=== PATIENT | female | born 1950 | race Caucasian/White ===

== ENCOUNTER → 2024-07-10 14:09 | Outpatient (REF) | payer MEDICARE, SELFPAY | LOC: RAD 14:09 | PROVIDERS: ATTENDING PHYSICIAN Internal Medicine Rheumatology; FAMILY PHYSICIAN Internal Medicine; REFERRING PHYSICIAN Physical Medicine & Rehabilitation | DX: M81.0 Age-related osteoporosis without current pathological fracture (principal); M05.9 Rheumatoid arthritis with rheumatoid factor, unspecified; M06.9 Rheumatoid arthritis, unspecified; M16.10 Unilateral primary osteoarthritis, unspecified hip; M47.816 Spondylosis without myelopathy or radiculopathy, lumbar region | CPT/HCPCS: 73523; 77080 ==

== ENCOUNTER 2024-10-29 06:17 | Inpatient (IN) | payer MEDICARE, SELFPAY ==
[2024-10-01 11:02] VITALS: BMI 20.4
[2024-10-01 12:02] LABS: Hematocrit 41.3 % (37.0-47.0); Hemoglobin 12.8 g/dL (12.0-16.0); Mean Corpuscular Hgb 32.1 pg (27.0-31.0); Mean Corpuscular Volume 103.5 fL (81.0-99.0); Mean Platelet Volume 9.4 fL (7.4-10.4); Platelet Count 345 10^3/uL (130-400); Red Blood Cell Count 3.99 10^6/uL (4.20-5.40); Red Cell Dist. Width 14.6 % (11.5-14.5); White Blood Cell Count 10.5 10^3/uL (4.8-10.8)
[2024-10-01 12:24] LABS: ALT (SGPT) 12 U/L (0-35); AST (SGOT) 19 U/L (14-36); Albumin 4.7 g/dl (3.5-5.0); Alkaline Phosphatase 38 U/L (38-126); Blood Urea Nitrogen 31 mg/dl (7-17); Calcium 10.3 mg/dl (8.4-10.2); Carbon Dioxide 25 mmol/L (22-30); Chloride 103 mmol/L (98-107); Estimated Creatinine Clearance 47 ml/min; Glucose 102 mg/dl (70-99); Potassium 4.6 mmol/L (3.5-5.1); Sodium 140 mmol/L (135-145); Total Bilirubin 0.5 mg/dl (0.2-1.3); eGFR 58.39
[2024-10-01 12:28] LABS: Glycohemoglobin (HgbA1c) 6.3 % (4.0-5.6)
[2024-10-23 09:46] VITALS: BMI 20.4
--- NOTE | 2024-10-25 13:05 | CM ---
Addendum entered by Ginette Lindo RN 10/25/24 13:29:
CM spoke with patient via live telephone. Patient confirmed that she had discussed her discharge plan previously. Patient has decided on home discharge with VN for two weeks. Plan to transition to outpatient PT at that point. Patient stated that she
is immunocompromised and would prefer NOT to go to SNF.
CM stated that inpatient CM will work with providers, PT and nursing to confirm discharge plan.
Original Note:
CM left message for patient to discuss discharge planning options.
[2024-10-29] VITALS (14 sets, daily range): BP systolic 96–147; BP diastolic 62–89; PULSE 90–94; O2SAT 98
[2024-10-29] MEDS: MOBIC 15 MG PO (07:42)
[2024-10-29] MEDS: NORMOSOL-R/PLASMALYTE-A 1000 IV ×2 (07:43→12:15)
--- NOTE | 2024-10-29 07:57 | W.PN.UPDATE ---
Update Note
Progress Note Update
L SHARAN Dr. Singh 10/29/24
DVT ppx ASA
CKD 3 based on GFR-avoid nephrotoxic agents
Sub IV Decadron and Lyrica for home Prednisone and Gabapentin while inpatient
Cefadroxil Rx OP due to need for steroid-RA and mildly elevated hgb [id number] SSI Novolog coverage
--- NOTE | 2024-10-29 08:10 | W.DS.TRANS ---
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
-
Discharge Instructions:
Sleep Apnea Risk Low
Discharge Diagnosis/Procedures L SHARAN Singh 10/29/24
Diet Diabetic, Carb Controlled
Activity With Walker
Driving Restrictions No driving
Bathing Restrictions OK to Shower
Other Services VN,PT,OT
Instructions:
Stand-Alone Forms: Total Hip/Knee Replacement D/C
Changes to Home Medications: Yes
Discharge Medications:
DC Medications w/original date entered in [employer]
acetaminophen 325 mg tablet (Tylenol) 650 mg PO BID 10/23/24
amlodipine 5 mg tablet 5 mg PO HS 10/23/24
gabapentin 100 mg capsule 100 mg PO HS 10/23/24
levothyroxine 125 mcg tablet 125 mcg PO DAILY 10/23/24
lisinopril 20 mg-hydrochlorothiazide 25 mg tablet 1 tab PO HS 10/23/24
metoprolol succinate 50 mg tablet,extended release 24 hr 50 mg PO HS 10/23/24
omeprazole 20 mg capsule,delayed release 20 mg PO DAILY 10/23/24
prednisone 5 mg tablet 5 mg PO DAILY 10/23/24
rituximab 10 mg/mL concentrate,intravenous (Rituxan) mg IV [id number] 10/23/24
rosuvastatin 20 mg tablet (Crestor) 20 mg PO DAILY 10/23/24
tramadol 50 mg tablet 50 mg PO HS 10/23/24
Saccharomyces boulardii 250 mg capsule (Florastor) 250 mg PO BID #1 cap 10/29/24
aspirin 325 mg tablet 325 mg PO DAILY blood clot prevention #1 tab 10/29/24
cefadroxil 500 mg capsule 500 mg PO BID infection prevention #14 caps 10/29/24
dexamethasone 4 mg tablet 4 mg PO BID inflammation #6 tabs 10/29/24
docusate sodium 100 mg capsule (Colace) 100 mg PO BID stool softner #1 cap 10/29/24
magnesium hydroxide 400 mg/5 mL oral suspension (Milk of Magnesia) 30 ml PO HS PRN Constipation #1 mL 10/29/24
mupirocin 2 % topical ointment 2 applic topical BID 10/29/24
ondansetron 4 mg disintegrating tablet 4 mg PO Q6H PRN n/v #20 tabs 10/29/24
oxycodone 5 mg tablet 5 mg PO Q6H PRN 1 tab moderate pain, 2 tabs severe pain #30 tabs 10/29/24
sennosides 8.6 mg tablet (Senokot) 17.2 mg (2 x 8.6 mg) PO BID laxative #2 tabs 10/29/24
Home Medication Changes
prednisone 5 mg tablet 5 mg PO DAILY 10/23/24
rituximab 10 mg/mL concentrate,intravenous (Rituxan) mg IV [id number] 10/23/24
rosuvastatin 20 mg tablet (Crestor) 20 mg PO DAILY 10/23/24
tramadol 50 mg tablet 50 mg PO HS 10/23/24
Saccharomyces boulardii 250 mg capsule (Florastor) 250 mg PO BID #1 cap 10/29/24
aspirin 325 mg tablet 325 mg PO DAILY blood clot prevention #1 tab 10/29/24
cefadroxil 500 mg capsule 500 mg PO BID infection prevention #14 caps 10/29/24
dexamethasone 4 mg tablet 4 mg PO BID inflammation #6 tabs 10/29/24
docusate sodium 100 mg capsule (Colace) 100 mg PO BID stool softner #1 cap 10/29/24
magnesium hydroxide 400 mg/5 mL oral suspension (Milk of Magnesia) 30 ml PO HS PRN Constipation #1 mL 10/29/24
mupirocin 2 % topical ointment 2 applic topical BID 10/29/24
ondansetron 4 mg disintegrating tablet 4 mg PO Q6H PRN n/v #20 tabs 10/29/24
oxycodone 5 mg tablet 5 mg PO Q6H PRN 1 tab moderate pain, 2 tabs severe pain #30 tabs 10/29/24
sennosides 8.6 mg tablet (Senokot) 17.2 mg (2 x 8.6 mg) PO BID laxative #2 tabs 10/29/24
Pending Results: No
[2024-10-29] MEDS: ROXICODONE 5 MG PO ×2 (10:44→20:01)
[2024-10-29] MEDS: DILAUDID 0.25 MG IV ×2 (10:45→10:56)
[2024-10-29] MEDS: DILAUDID 0.5 MG IV ×2 (11:09→21:58)
[2024-10-29] MEDS: CRESTOR PO (12:12)
[2024-10-29] MEDS: LYRICA PO (12:12)
[2024-10-29] MEDS: SYNTHROID PO (12:12)
[2024-10-29] MEDS: TYLENOL PO (12:13)
[2024-10-29] MEDS: ULTRAM PO ×2 (12:13→22:29)
[2024-10-29] MEDS: PROTONIX PO (12:13)
[2024-10-29 12:20] LABS: Glucose - Point of Care 136 mg/dl (70-99)
[2024-10-29] MEDS: NOVOLOG FLEXPEN-MODERATE RESISTANCE SC (12:22)
[2024-10-29] MEDS: DECADRON 6 MG IV ×2 (13:03→20:02)
[2024-10-29] MEDS: ULTRAM 50 MG PO ×2 (13:04→17:42)
[2024-10-29] MEDS: ZOFRAN 4 MG IV (14:11)
[2024-10-29] MEDS: TYLENOL 650 MG PO ×2 (16:00→20:03)
[2024-10-29] MEDS: ANCEF 5 IV (16:39)
[2024-10-29] MEDS: COMPAZINE 5 MG PO (17:11)
[2024-10-29 17:28] LABS: Glucose - Point of Care 182 mg/dl (70-99)
[2024-10-29] MEDS: NOVOLOG FLEXPEN-MODERATE RESISTANCE 1 UNITS SC (17:41)
[2024-10-29] MEDS: ASPIRIN 325 MG PO (17:42)
[2024-10-29] MEDS: MAALOX 30 ML PO (19:44)
[2024-10-29] MEDS: COLACE 100 MG PO (20:02)
[2024-10-29] MEDS: BACTROBAN 2% OINTMENT 1 APPLIC NASAL (20:03)
[2024-10-29] MEDS: SENOKOT 17.2 MG PO (20:03)
[2024-10-29] MEDS: LYRICA 75 MG PO (20:03)
[2024-10-29 21:16] LABS: Glucose - Point of Care 203 mg/dl (70-99)
[2024-10-30] VITALS (7 sets, daily range): BP systolic 112–118; BP diastolic 63–80; PULSE 80
[2024-10-30] MEDS: ROXICODONE 10 MG PO ×2 (00:58→05:10)
[2024-10-30] MEDS: ANCEF 5 IV (00:59)
[2024-10-30] MEDS: TYLENOL 650 MG PO ×6 (00:59→23:10)
[2024-10-30] MEDS: MAALOX 30 ML PO ×2 (01:05→05:15)
[2024-10-30] MEDS: SYNTHROID 125 MCG PO (05:10)
[2024-10-30] MEDS: BACTROBAN 2% OINTMENT 1 APPLIC NASAL ×2 (08:23→20:14)
[2024-10-30 08:28] LABS: Hepatitis C Antibody Negative (Negative)
[2024-10-30] MEDS: DECADRON 6 MG IV ×2 (08:33→20:24)
[2024-10-30] MEDS: FLUSH (NSS) 1 FLUSH IV (08:34)
[2024-10-30 08:35] LABS: Glucose - Point of Care 156 mg/dl (70-99)
[2024-10-30] MEDS: ZOFRAN 4 MG IV (08:44)
[2024-10-30] MEDS: NOVOLOG FLEXPEN-MODERATE RESISTANCE SC (08:47)
--- NOTE | 2024-10-30 08:48 | PTCARENOTE ---
assumed care of pt this am at 0715. pt w/multiple complaints. pt unable to eat breakfast, vomited moderate amount of bilious liquid and applesauce.
IV Decadron and IV Zofran provided per MAR. will give oral medications when pt can tolerate. pt verbalized concerns about being discharged home alone today. care ongoing.
[2024-10-30] MEDS: PROTONIX 40 MG PO (10:25)
--- NOTE | 2024-10-30 10:48 | CM ---
CM following re: discharge planning.
Reviewed pt's chart, met with pt.
Pt is a 74 year old female, admitted with primary dx of POD#1 s/p Left total hip arthroplasty.
Pt reports she lives alone 2SH, 3 steps to enter, has 2 supportive children and grandson with his family are caregivers. Pt reports she ambulates with a cane mostly, has a walker, does not use it. Pt stated she feels she is not ready for discharge
today. IMM reviewed, placed on chart, pt has a copy. Pt stated her grandson will transport home at discharge.
CM consult to arrange VN services noted. Pt is aware and she stated she had [facility] in the past and she preferred [facility]. A referral to [facility] made.
Please fax discharge instructions to [facility] at [phone].
PCP: Joel Rowell
Pharmacy: [facility].
D/C plan: home with [facility] and family support. Grandson to transport at discharge.
CM will follow with discharge plan updates as hospitalization progresses
--- NOTE | 2024-10-30 10:56 | W.PN.ORTHO ---
Today's Communication / Plan
-
d/c
Assessment
.
Distal Motor Intact: Yes
Dressing:
Clean, dry and intact.
Assessment:
CKD 3 based on GFR-avoid nephrotoxic agents
Sub IV Decadron and Lyrica for home Prednisone and Gabapentin while inpatient-pain controlled
Cefadroxil Rx OP due to need for steroid-RA and mildly elevated hgb [id number] SSI Novolog coverage-sugars stable POD#1
Plan
.
Surgery / Date: L SHARAN Singh 10/29/24
DVT Prophylaxis: Aspirin
Activity:
Out of bed.
PT/OT--supervision/mod I RW with PT/OT-grandson and live across street and patient has been arranged home care
Discharge Plan: Home w/ VN
Subjective
.
.:
Patient resting comfortably.
Mild nausea-improved
Vital Signs and Labs
.
Vital Signs and Labs:
Lab Results
10/01/24 10:59
10/01/24 10:59
Temp Pulse Resp BP Pulse Ox
98.7 F 90 18 115/76 98
10/30/24 10:47 10/30/24 10:47 10/30/24 10:47 10/30/24 10:47 10/30/24 10:47
Non-invasive Hgb result: 13.1
Physical Exam
-
HEENT: No pallor, cyanosis, or jaundice. Throat clear.
NECK: Supple. No JVD.
RESPIRATORY: Lungs clear to auscultation.
CVS: S1, S2 normal. RRR.� No murmur, rub or gallop.
ABDOMEN: Soft, non-tender. No distension. BS+/normal.
EXTREMITIES: strength equal, no calf pain with palpation
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
[2024-10-30] MEDS: COMPAZINE 5 MG IV (11:30)
[2024-10-30] MEDS: TYLENOL PO (11:32)
[2024-10-30] MEDS: SENOKOT 17.2 MG PO ×2 (11:33→20:14)
--- NOTE | 2024-10-30 11:33 | VNURNOTE ---
Home health liaison met with patient to discuss [facility] services, visit scheduling/frequency, homebound status and pet policy. Patient understands home visits will be 1-2 times a week to assess and teach medical management. Patient aware a visiting
nurse will contact them for start of care within 1-2 days after discharge from . [facility] Referral completed in care port. [facility] brochure given to patient
[2024-10-30] MEDS: CRESTOR 20 MG PO (11:34)
[2024-10-30] MEDS: LYRICA 75 MG PO ×2 (11:34→20:14)
[2024-10-30] MEDS: ULTRAM 50 MG PO ×3 (11:34→23:10)
[2024-10-30] MEDS: COLACE 100 MG PO ×2 (11:34→20:14)
[2024-10-30] MEDS: ASPIRIN 325 MG PO (11:34)
[2024-10-30 12:04] LABS: Glucose - Point of Care 199 mg/dl (70-99)
[2024-10-30] MEDS: ProAmatine 5 MG PO (12:21)
[2024-10-30] MEDS: FLOMAX 0.4 MG PO (12:21)
[2024-10-30] MEDS: NOVOLOG FLEXPEN-MODERATE RESISTANCE 1 UNITS SC (12:23)
[2024-10-30] MEDS: ULTRAM PO (13:00)
[2024-10-30 17:32] LABS: Glucose - Point of Care 217 mg/dl (70-99)
[2024-10-30] MEDS: NOVOLOG FLEXPEN-MODERATE RESISTANCE 3 UNITS SC (17:32)
[2024-10-30 21:45] LABS: Glucose - Point of Care 148 mg/dl (70-99)
[2024-10-31] MEDS: TESSALON PERLES 100 MG PO ×2 (01:33→12:08)
[2024-10-31 03:53] VITALS: BP 100/65
[2024-10-31] MEDS: TYLENOL PO ×2 (06:07→14:19)
[2024-10-31] MEDS: SYNTHROID 125 MCG PO (06:22)
[2024-10-31 07:25] VITALS: BP 121/83
[2024-10-31 08:50] LABS: Glucose - Point of Care 143 mg/dl (70-99)
[2024-10-31] MEDS: NOVOLOG FLEXPEN-MODERATE RESISTANCE SC (09:02)
[2024-10-31 10:33] VITALS: BP 103/71; PULSE 114; O2SAT 91
[2024-10-31 10:38] VITALS: BP 91/62; BP 92/69; PULSE 124; O2SAT 91
--- NOTE | 2024-10-31 10:53 | W.PN.UPDATE ---
Update Note
Progress Note Update
Patient doing/feeling well this AM. Seated bedside in chair. Voiding well. Working with OT upon arrival, awaiting PT. Now POD#2 Left SHARAN (Samantha). Afeb. Left hip dressing CDI. Minimal pain with ranging. Calf soft, nontender. DNVI LLE. Plan for D/c
home today with VNS- appreciate CM. Outpatient Ortho follow-up in 2 weeks for staple removal.
--- NOTE | 2024-10-31 10:54 | W.DS.TRANS ---
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
-
Discharge Instructions:
Sleep Apnea Risk Low
Discharge Diagnosis/Procedures L SHARAN Dr. Singh 10/29/24
Diet Diabetic, Carb Controlled
Activity With Walker
Driving Restrictions No driving
Bathing Restrictions OK to Shower
Other Services VN,PT,OT
Instructions:
Stand-Alone Forms: Total Hip/Knee Replacement D/C
Changes to Home Medications: No
Discharge Medications:
DC Medications w/original date entered in [employer]
acetaminophen 325 mg tablet (Tylenol) 650 mg PO BID 10/23/24
amlodipine 5 mg tablet 5 mg PO HS 10/23/24
gabapentin 100 mg capsule 100 mg PO HS 10/23/24
levothyroxine 125 mcg tablet 125 mcg PO DAILY 10/23/24
lisinopril 20 mg-hydrochlorothiazide 25 mg tablet 1 tab PO HS 10/23/24
metoprolol succinate 50 mg tablet,extended release 24 hr 50 mg PO HS 10/23/24
omeprazole 20 mg capsule,delayed release 20 mg PO DAILY 10/23/24
prednisone 5 mg tablet 5 mg PO DAILY 10/23/24
rituximab 10 mg/mL concentrate,intravenous (Rituxan) mg IV [id number] 10/23/24
rosuvastatin 20 mg tablet (Crestor) 20 mg PO DAILY 10/23/24
tramadol 50 mg tablet 50 mg PO HS 10/23/24
Saccharomyces boulardii 250 mg capsule (Florastor) 250 mg PO BID #1 cap 10/29/24
aspirin 325 mg tablet 325 mg PO DAILY blood clot prevention #1 tab 10/29/24
cefadroxil 500 mg capsule 500 mg PO BID infection prevention #14 caps 10/29/24
dexamethasone 4 mg tablet 4 mg PO BID inflammation #6 tabs 10/29/24
docusate sodium 100 mg capsule (Colace) 100 mg PO BID stool softner #1 cap 10/29/24
magnesium hydroxide 400 mg/5 mL oral suspension (Milk of Magnesia) 30 ml PO HS PRN Constipation #1 mL 10/29/24
mupirocin 2 % topical ointment 2 applic topical BID 10/29/24
ondansetron 4 mg disintegrating tablet 4 mg PO Q6H PRN n/v #20 tabs 10/29/24
oxycodone 5 mg tablet 5 mg PO Q6H PRN 1 tab moderate pain, 2 tabs severe pain #30 tabs 10/29/24
sennosides 8.6 mg tablet (Senokot) 17.2 mg (2 x 8.6 mg) PO BID laxative #2 tabs 10/29/24
Home Medication Changes
Pending Results: No
--- NOTE | 2024-10-31 11:43 | CM ---
SPoke to Ortho team. Plan home today with DEANDRA. PT and OT assessed today. Met with patient who plans to go home today. She has ride set up for home.
[2024-10-31] MEDS: ULTRAM 50 MG PO (11:58)
[2024-10-31] MEDS: FLOMAX 0.4 MG PO (11:58)
[2024-10-31] MEDS: COLACE 100 MG PO (11:58)
[2024-10-31] MEDS: TYLENOL 650 MG PO (12:02)
[2024-10-31] MEDS: ASPIRIN 325 MG PO (12:03)
[2024-10-31] MEDS: CRESTOR 20 MG PO (12:03)
[2024-10-31] MEDS: LYRICA 75 MG PO (12:03)
[2024-10-31] MEDS: SENOKOT 17.2 MG PO (12:04)
[2024-10-31] MEDS: PROTONIX 40 MG PO (12:04)
[2024-10-31 14:05] LABS: Glucose - Point of Care 154 mg/dl (70-99)
[2024-10-31 14:06] VITALS: BP 106/72
[2024-10-31] MEDS: ULTRAM PO (14:20)
[2024-10-31] MEDS: NOVOLOG FLEXPEN-MODERATE RESISTANCE 1 UNITS SC (14:21)
== END 2024-10-31 14:55 | disposition home health service (06) | DRG 470 ==
LOC: 2 SOUTH 06:17
PROVIDERS: ADMITTING PHYSICIAN Specialist; FAMILY PHYSICIAN Internal Medicine
PROC: 0SRB03A Replacement of Left Hip Joint with Ceramic Synthetic Substitute, Uncemented, Open Approach (ICD-10-PCS; 2024-10-29)
DX: M16.12 Unilateral primary osteoarthritis, left hip (principal); I12.9 Hypertensive chronic kidney disease with stage 1 through stage 4 chronic kidney disease, or unspecified chronic kidney disease; N18.30 Chronic kidney disease, stage 3 unspecified; E03.9 Hypothyroidism, unspecified; K21.9 Gastro-esophageal reflux disease without esophagitis; M06.9 Rheumatoid arthritis, unspecified; M51.369 Other intervertebral disc degeneration, lumbar region without mention of lumbar back pain or lower extremity pain; G25.81 Restless legs syndrome; F32.A Depression, unspecified; E78.5 Hyperlipidemia, unspecified; Z79.52 Long term (current) use of systemic steroids; Z79.890 Hormone replacement therapy; Z79.899 Other long term (current) drug therapy; Z88.2 Allergy status to sulfonamides; Z87.891 Personal history of nicotine dependence
CPT/HCPCS: 36415; 73502; 80053; 82962; 83036; 85027; 86803; 87070; 93005; 97110; 97116; 97162; 97166; 97530; 97535; C1713; C1776

== ENCOUNTER 2024-11-01 20:39 | Inpatient (IN) | payer MEDICARE, SELFPAY ==
[2024-11-01 17:25] VITALS: BP 108/65; BMI 21.3
[2024-11-01 18:02] LABS: Hematocrit 33.9 % (37.0-47.0); Hemoglobin 11.5 g/dL (12.0-16.0); Mean Corp Hgb Conc. 33.9 g/dL (33.0-37.0); Mean Corpuscular Hgb 32.6 pg (27.0-31.0); Mean Platelet Volume 9.5 fL (7.4-10.4); Platelet Count 263 10^3/uL (130-400); Red Blood Cell Count 3.53 10^6/uL (4.20-5.40); White Blood Cell Count 11.1 10^3/uL (4.8-10.8)
[2024-11-01 18:08] LABS: Blood Urea Nitrogen 37 mg/dl (7-17); Calcium 8.7 mg/dl (8.4-10.2); Carbon Dioxide 24 mmol/L (22-30); Chloride 92 mmol/L (98-107); Estimated Creatinine Clearance 49 ml/min; Glucose 93 mg/dl (70-99); Sodium 125 mmol/L (135-145); eGFR 58.39
--- NOTE | 2024-11-01 18:10 | ED.GENMED ---
History of Present Illness
General
Chief Complaint: Weakness
Source: patient, records and previous hospital records
Exam Limitations: none
Time Seen by Provider: 11/01/24 17:30
Nursing documentation reviewed up to this point in time: agreed with
History of Present Illness
History of Present Illness:
74-year-old female with recovery from a left total hip replacement from Dr. Singh presents with fatigue and shortness of breath low pulse ox, she has been on aspirin postoperatively, tells me she felt short of breath before she left the hospital,
but acutely worsened, blood pressure was in the 80 pulse ox was in the low 80s 80s apparently placed on a nonrebreather, she has crackles bilaterally, states she does feel crackles in her lungs no history of heart failure she tells me she said no
fevers, no leg edema that she knows of, pulse ox here is in the 60s
Past History
Past History
ED Past Medical History: HTN and Other (RA, no history of PE)
ED Past Surgical History: Orthopedic
Social History
Tobacco: Non-smoker
Alcohol: None
Drug: None
Personal:
Living: with family
Employment: Retired
Review of Systems
Review of Systems
All Other Systems: Not applicable
Constitutional: Reports fatigue; Denies fever
Respiratory: Reports cough and trouble breathing
Cardiac: Reports no symptoms
ABD/GI: Reports no symptoms
: Reports no symptoms
Skin: Reports no symptoms
Neurological: Reports weakness
Endocrine: Reports no symptoms
Phy Exam
Physical Exam
Physical Exam:
Physical Exam
General: Ill-appearing
Neck: No jaundice
Heart: s1/s2 regular rate and rhythm, no murmur. equal radial pulses.
Lungs: Crackles bilaterally cardiac
Abdomen: Nontender
Neuro: alert and oriented. no focal neurological deficits
Skin: no rash
Psychiatric: well kept. interactive and cooperative
Extremities: No calf pain
Course
Orders/Labs/Results
Orders:
Orders
11/01/24 17:33
Basic Metabolic Panel Urgent
COVID-19 Antigen Urgent
Source: Nasal Swab
Complete Blood Count/With Diff Urgent
Influenza A+B Rapid Molecular Urgent
VERNA Source: Nasal Swab
Specimen Description:
11/01/24 17:35
CT Chest Pe Study Stat
Comment:
Reason For Exam: no labs, thanks
11/01/24 17:49
Electrocardiogram (*1) Urgent
Reason for Study: Shortness of Breath
EKG- Treatment ONCE
11/01/24 18:28
NT-proBNP Urgent
Troponin I Urgent
11/01/24 18:52
Piperacillin/Tazo 3.375 Gram [Zosyn] 3.375 gram in 50 ml IV NOW
11/01/24 18:53
Add On- LAB Urgent
Tests Added?: random cortisol
11/01/24 18:54
Hydrocortisone Sod Succinate [Solu-Cortef] 100 mg IV NOW STA
11/01/24 19:08
Cortisol, Random Urgent
Blood Culture Q30M
VERNA Source: Blood/Venous
Specimen Description:
Blood Culture Q30M
VERNA Source: Blood/Venous
Specimen Description:
11/01/24 19:19
0.9% Sodium Chloride 1000 ml [Nss] 1,000 ml IV BOLUS
Ipratropium/Albuterol Sulfate [Duoneb] 3 ml INH R NOW STA
Abnormal Lab Results
11/01/24
17:33
WBC 11.1 H 10^3/uL
(4.8-10.8)
RBC 3.53 L 10^6/uL
(4.20-5.40)
Hgb 11.5 L g/dL
(12.0-16.0)
Hct 33.9 L %
(37.0-47.0)
MCH 32.6 H pg
(27.0-31.0)
Abs Immat Gran (auto) 0.1 H 10^3/uL
(0-0.05)
Absolute Neuts (auto) 9.6 H 10^3/uL
(1.4-6.5)
Absolute Lymphs (auto) 0.7 L 10^3/uL
(1.2-3.4)
Immature Gran % 1.1 H %
(0-0.5)
Neutrophils % 86.7 H %
(42.2-75.2)
Lymphocytes % 5.9 L %
(20.5-51.1)
Sodium 125 L mmol/L
(135-145)
Chloride 92 L mmol/L
(98-107)
BUN 37 H mg/dl
(7-17)
11/01/24 17:33
11/01/24 17:33
Vital Signs
Initial and Last Documented VS:
Initial Vital Signs
Temp Pulse Resp BP Pulse Ox
98.2 F 97 18 108/65 67
11/01/24 17:25 11/01/24 17:25 11/01/24 17:25 11/01/24 17:25 11/01/24 17:25
Last Documented Vital Signs
Temp Pulse Resp BP Pulse Ox
98.2 F 91 25 99/65 96
11/01/24 17:25 11/01/24 19:15 11/01/24 19:15 11/01/24 19:00 11/01/24 19:15
MDM/Problems Addressed
Differential Diagnosis Includes:
PE aspiration pneumonia heart failure pneumothorax pulmonary fibrosis other
MDM/Problems Addressed:
Shortness of breath low pulse ox low blood pressure
Chronic conditions affecting care:
Recent orthopedic procedure
Acute Exacerbation and/or Progression of Chronic Illness:
Recent orthopedic procedure
*EKG
Interpreted by ED Provider?: Yes
Comparison EKG: no comparison EKG present
Heart Rate: 78
Rate: normal
Rhythm: sinus
Ischemia: non-specific ST changes
*[employer] Consultant Interpretation
Rate: normal
Interpretation: normal
Heart Rate: 78
Rhythm: sinus
*Critical Care Note
Total Time (30-74mins, 75-104mins- exclusive of procedures): 32
Update Note
Update Note:
Update, CT report noted, will check blood cultures proBNP, started on antibiotics give stress dose steroids, allergies noted on a cephalosporin does not appear to be a true allergy
Blood pressure 99 systolic will give a bolus of saline, proBNP is noted, stress dose steroids have been ordered she is on chronic steroids, clinically she appears to be improved with a still on a nonrebreather message sent to hospitalist and to
orthopedist on-call for her treating orthopedist
ED Attending Note
-
Portions of this chart may have been created with voice recognition software.� Occasional wrong word or��sound alike� substitutions may have occurred due to the inherent limitations of voice recognition software.
Discharge Plan
Departure
Patient Disposition: Admit
Date of Disposition: 11/01/24
Time of Disposition: 18:54
Presentation/result/management discussed w/ accepting MD/DO: Hospitalist
Condition: Fair
Covid-19: Not Applicable
Discharge Problem:
Respiratory failure, Hypoxia
Prescriptions:
No Action
metoprolol succinate 50 mg Tablet Extended Release 24 Hr
50 mg PO HS
amlodipine 5 mg Tablet
5 mg PO HS
tramadol 50 mg Tablet
50 mg PO HS
levothyroxine 125 mcg Tablet
125 mcg PO DAILY
omeprazole 20 mg Capsule,Delayed Release(Dr/Ec)
20 mg PO DAILY
lisinopril-hydrochlorothiazide 20-25 mg Tablet
1 tab PO HS
gabapentin 100 mg Capsule
100 mg PO HS
rosuvastatin [Crestor] 20 mg Tablet
20 mg PO DAILY
aspirin 325 mg tablet
325 mg PO DAILY Qty: 1 0RF
Rx Instructions:
Take with food
cefadroxil 500 mg capsule
500 mg PO BID Qty: 14 0RF
Rx Instructions:
*Take w/ food
*Take w/ probiotic
*POST-OP USE
docusate sodium [Colace] 100 mg capsule
100 mg PO BID Qty: 1 0RF
Saccharomyces boulardii [Florastor] 250 mg capsule
250 mg PO BID Qty: 1 0RF
sennosides [Senokot] 8.6 mg tablet
17.2 mg PO BID Qty: 2 0RF
prednisone 10 mg Tablet
10 mg PO BID
Patient Comments:
11/01/24: to take for 5 days, then back to 5mg QD
acetaminophen [Tylenol 8 Hour] 650 mg Tablet Extended Release
1,300 mg PO Q12H
celecoxib 100 mg Capsule
100 mg PO BID
Patient Comments:
11/01/24: to take for 5 days
ondansetron [ondansetron] 4 mg tablet,disintegrating
4 mg PO Q6HPRN PRN (Reason: n/v)
Rx Instructions:
take 1/2h b/f pain med if recurrent nausea
allow to dissolve in mouth w/o water
oxycodone 5 mg tablet
5 mg PO Q6HPRN PRN (Reason: 1 tab moderate pain, 2 tabs severe pain)
Rx Instructions:
Ongoing therapy
Referrals:
Rajan Rowell MD [Family Provider] -
Interventions
Interventions:
*Risk Screen - Suicide Last Done: 11/01/24 17:30
*General Assessment Last Done: 11/01/24 17:30
*Neglect/Abuse Screening Last Done: 11/01/24 17:30
*ED COVID-19 Vaccine History Last Done: 11/01/24 17:30
ED- Cardiac Assessment Last Done: 11/01/24 17:48
ED- Neurological Assessment Last Done: 11/01/24 17:48
ED- Pulmonary Assessment Last Done: 11/01/24 17:48
Discharge Date and Time
Print Language: PERSIAN
[2024-11-01 18:23] LABS: COVID-19 Antigen Negative (Negative)
[2024-11-01 18:34] LABS: % Basophils 0.5 % (0-2); % Eosinophils 3.1 % (0-6); % Immature Granulocytes 1.1 % (0-0.5); % Lymphocytes 5.9 % (20.5-51.1); % Monocytes 2.7 % (1.7-9.3); % Neutrophils 86.7 % (42.2-75.2); Absolute Basophils 0.1 10^3/uL (0-0.2); Absolute Eosinophils 0.3 10^3/uL (0-0.7); Absolute Immature Granulocytes 0.1 10^3/uL (0-0.05); Absolute Lymphocytes 0.7 10^3/uL (1.2-3.4); Absolute Monocytes 0.3 10^3/uL (0.1-0.6); Absolute Neutrophils 9.6 10^3/uL (1.4-6.5); Nucleated Red Blood Cells % 0 %
[2024-11-01 19:00] VITALS: BP 99/65
[2024-11-01 19:00] LABS: NT-proBNP 2350 pg/ml
[2024-11-01] MEDS: ZOSYN 50 IV (19:11)
[2024-11-01] MEDS: SOLU-CORTEF 100 MG IV (19:11)
[2024-11-01] MEDS: DUONEB 3 ML INH (19:39)
[2024-11-01] MEDS: NSS 1000 IV ×2 (19:44→22:09)
--- NOTE | 2024-11-01 19:57 | HPS.HSE ---
Family Physician
-
Family Physician: Rajan Rowell
Chief Complaint
-
Cough, SOB
History of Present Illness
Patient is a 74y F with PMH significant for hypertension, rheumatoid arthritis and L SHARAN on 10/29 who presents to ED complaining of cough and SOB. Patient underwent L SHARAN on 10/29/24. She notes that she developed mild cough on Tuesday /
Tuesday, but was generally feeling well at the time of discharge on 10/31. Patient states that once she returned home she 'fell off a antonieta'. She notes cough that was productive of copious amounts of non-bloody mucus. She states that she had
post-tussive emesis following coughing spells - though this was not preceded by any sensation of nausea. Patient denies any chest pain or abdominal pain.
She has had poor appetite, but has been moving bowels and voiding.
No shaking chills or subjective fever.
Patient notes that her L hip is feeling 'great!'.
Patient does state that her hospitalization this evening was prompted when she 'slid' off of her couch. She states that she slid to the floor with a cushion and landed on the cushion. She denies any pain / injury related to that fall.
Medical History
Past Medical History
Past Medical History: Reports Other
Additional Past Medical History:
Hypertension
Hypothyroidism
Rheumatoid Arthritis
Restless Leg Syndrome
Past Surgical History: Reports Other
Additional Past Surgical History:
L SHARAN (10/29/24)
Appendectomy
R Elbow Surgery
Social History
Tobacco: Former Smoker (Quit smoking 60 years ago.)
Alcohol: Occasional
Drug: None
Family History
Family History: Not pertinent
Allergies / Home Medications
Allergies reflects when Allergies were last updated in [employer]
Home Medications with original date entered in [employer]
Allergy/Medication List:
Allergies
Allergy/AdvReac Type Severity Reaction Status Date / Time
adhesive Allergy Rash Verified 10/29/24 07:30
amoxicillin [From Augmentin] Allergy Nausea / Verified 10/29/24 07:30
Vomiting
clavulanic acid Allergy Nausea / Verified 10/29/24 07:30
[From Augmentin] Vomiting
methotrexate Allergy Itching Verified 10/29/24 07:30
Sulfa (Sulfonamide Allergy Nausea / Verified 10/29/24 07:30
Antibiotics) Vomiting
Home Medications
amlodipine 5 mg tablet 5 mg PO HS 10/23/24
gabapentin 100 mg capsule 100 mg PO HS 10/23/24
levothyroxine 125 mcg tablet 125 mcg PO DAILY 10/23/24
lisinopril 20 mg-hydrochlorothiazide 25 mg tablet 1 tab PO HS 10/23/24
metoprolol succinate 50 mg tablet,extended release 24 hr 50 mg PO HS 10/23/24
omeprazole 20 mg capsule,delayed release 20 mg PO DAILY 10/23/24
rosuvastatin 20 mg tablet (Crestor) 20 mg PO DAILY 10/23/24
tramadol 50 mg tablet 50 mg PO HS 10/23/24
Saccharomyces boulardii 250 mg capsule (Florastor) 250 mg PO BID #1 cap 10/29/24
aspirin 325 mg tablet 325 mg PO DAILY blood clot prevention #1 tab 10/29/24
cefadroxil 500 mg capsule 500 mg PO BID infection prevention #14 caps 10/29/24
docusate sodium 100 mg capsule (Colace) 100 mg PO BID stool softner #1 cap 10/29/24
sennosides 8.6 mg tablet (Senokot) 17.2 mg (2 x 8.6 mg) PO BID laxative #2 tabs 10/29/24
acetaminophen 650 mg tablet,extended release (Tylenol 8 Hour) 1,300 mg PO Q12H 11/01/24
celecoxib 100 mg capsule 100 mg PO BID 11/01/24
ondansetron 4 mg disintegrating tablet 4 mg PO Q6HPRN PRN n/v 11/01/24
oxycodone 5 mg tablet 5 mg PO Q6HPRN PRN 1 tab moderate pain, 2 tabs severe pain 11/01/24
prednisone 10 mg tablet 10 mg PO BID 11/01/24
Review of Systems
-
History Source: Patient
A 12 point ROS was completed and negative except as noted: Yes
Constitutional: Reports Fatigue; Denies Fever or Chills
EENT: Denies Sore Throat
Respiratory: Reports Cough and Trouble Breathing; Denies Hemoptysis
Cardiac: Denies Chest Pain, Diaphoresis, Palpitations or Syncope
Abdomen/GI: Reports Vomiting; Denies Abdominal Pain, Nausea, Diarrhea, Constipated or Bloody Stools
: Reports Incontinence; Denies Dysuria or Frequency
Musculoskeletal: Denies Joint Pain or Edema
Neurological: Denies Dizzy or Headache
Psych: Denies Depression or Anxiety
Physical Exam
Vital Signs
Vital Signs
Temp Pulse Resp BP Pulse Ox
98.2 F 89 20 99/65 94
11/01/24 17:25 11/01/24 19:45 11/01/24 19:45 11/01/24 19:00 11/01/24 19:30
Physical Exam
General: Other (74y F in mild distress due to cough / dyspnea.)
HEENT: Other (Dry MM. Neck supple.)
Respiratory: Other (Diffuse rales throughout all lung mobley. No wheezing.)
Cardiac: S1/S2 and Tachycardia; No Murmur
GI: Soft, Non Tender, Non Distended and Normal Bowel Sounds
Musculoskeletal: No Clubbing, No Cyanosis, No Edema and Other (L hip incision in place without bleeding / strikethrough.)
Neuro: AO x 3 and Nonfocal/grossly intact
Laboratory Results
-
11/01/24 17:33
11/01/24 17:33
Laboratory Results
Total Bilirubin Cancelled 11/01/24 17:33
AST Cancelled 11/01/24 17:33
ALT Cancelled 11/01/24 17:33
Alkaline Phosphatase Cancelled 11/01/24 17:33
Troponin I 0.030 ng/ml 11/01/24 18:28
Impression/Plan
-
A/P: Patient is a 74y F with PMH significant for RA, HTN and recent L SHARAN who presents to ED complaining of cough and SOB.
Multifocal Pneumonia
Acute Hypoxemic Respiratory Failure secondary to the above
Sepsis secondary to the above
- Admit for further evaluation and treatment.
- Patient presents with tachycardia, tachypnea, leukocytosis and clinical / CT evidence of multifocal pneumonia.
- Life-threatening organ dysfunction in the form of acute hypoxemic respiratory failure.
- COIVID / Flu negative in the ED.
- IV abx with cefepime and Flagyl given PCN allergy.
- IVF support.
- Chest PT, nebs, IS, etc.
- Treat / decompression hiatal hernia as noted below.
- Follow for clinical improvement.
Hiatal Hernia / GERD
- ? aspiration component given multifocal infiltrates and large hiatal hernia / esophageal air-fluid level noted on CT.
- Place NG for decompression in the ED.
- IV PPI. Speech eval to assess aspiration risk.
- Follow for any recurrent emesis.
Hyponatremia
- Na = 125 down from pre-op value of 140.
- Likely due to ADH release s/p surgery, anesthesia, pain response, etc.
- Follow for changes with IVFs overnight.
s/p L SHARAN 10/29/24
- Stable. L hip not in pain, etc.
- Will check plain x-rays given reported fall at home.
- Continue post-op care including ASA, PT, etc.
- Continue bowel regimen.
- Bladder scan protocol - patient had some issues with urinary retention post-op.
Rheumatoid Arthritis
Chronic Steroid Dependence
- Stable. No specific joint pains.
- Continue steroid stress dosing for now given recent surgery, current sepsis, etc.
- Resume usual home dose (prednisone 5mg BID) once stable.
Benign Hypertension
- BP currently on the lower side due to sepsis +/- hypovolemia, etc.
- Hold most BP agents for now. Holding parameters for metoprolol.
Hypothyroidism
- Stable. Continue T4 supplementation.
DVT Prophylaxis: SCDs / ASA
Code Status: DNR
[2024-11-01 20:00] VITALS: BP 114/69
[2024-11-01 20:11] LABS: Cortisol, Random 15.7 ug/dl
[2024-11-01 21:00] VITALS: BP 112/71
[2024-11-01 22:00] VITALS: BP 111/67
--- NOTE | 2024-11-01 22:00 | PTCARENOTE ---
Received written and bedside report from MIC Graham. Pt arrived to IMU from ED via stretcher. Wide open bolus infusing and NRB on with pt sating low 90s on arrival. This RN requested RT Tarsha come to bedside for her recommendation on pt's oxygen
status. Notified SITA Quevedo and received Rx for HFNC. Pt currently 50L 80% sating 93%. NSR on monitor. NSS infusing @ 100 mL/hr. R nare NGT to intermittent suction. Pt oriented to unit and admission completed (see worklist). Pt resting in bed with
call adams in reach.
[2024-11-01] MEDS: FLAGYL 500 MG 100 IV (22:12)
[2024-11-01] MEDS: PROTONIX IV 40 MG IV (22:24)
[2024-11-01] MEDS: CELEBREX 100 MG PO (22:24)
[2024-11-01] MEDS: SENOKOT 17.2 MG PO (22:24)
[2024-11-01] MEDS: COLACE 100 MG PO (22:24)
[2024-11-01] MEDS: NEURONTIN 100 MG PO (22:24)
[2024-11-01] MEDS: FLORASTOR 250 MG PO (22:24)
[2024-11-01] MEDS: NSS (PRESERVATIVE FREE) 10 ML IV (22:25)
[2024-11-01] MEDS: STERILE WATER FOR INJECTION 10 ML IV (22:25)
[2024-11-01] MEDS: MAXIPIME 2000 MG IV (22:26)
[2024-11-02] VITALS (29 sets, daily range): BP systolic 89–138; BP diastolic 56–110; PULSE 98–103; O2SAT 96–98; BMI 20.1
[2024-11-02] MEDS: SOLU-CORTEF 50 MG IV ×3 (04:57→20:19)
[2024-11-02] MEDS: SYNTHROID PO ×2 (04:59→10:00)
[2024-11-02] MEDS: FLAGYL 500 MG 100 IV ×3 (04:59→21:50)
[2024-11-02 05:57] LABS: Hematocrit 30.1 % (37.0-47.0); Hemoglobin 10.1 g/dL (12.0-16.0); Mean Corp Hgb Conc. 33.6 g/dL (33.0-37.0); Mean Corpuscular Hgb 32.2 pg (27.0-31.0); Mean Corpuscular Volume 95.9 fL (81.0-99.0); Mean Platelet Volume 9.5 fL (7.4-10.4); Platelet Count 267 10^3/uL (130-400); Red Blood Cell Count 3.14 10^6/uL (4.20-5.40); Red Cell Dist. Width 14.1 % (11.5-14.5); White Blood Cell Count 9.6 10^3/uL (4.8-10.8)
[2024-11-02 06:21] LABS: ALT (SGPT) 13 U/L (0-35); AST (SGOT) 35 U/L (14-36); Albumin 2.9 g/dl (3.5-5.0); Alkaline Phosphatase 46 U/L (38-126); Blood Urea Nitrogen 30 mg/dl (7-17); Calcium 8.1 mg/dl (8.4-10.2); Carbon Dioxide 21 mmol/L (22-30); Chloride 99 mmol/L (98-107); Direct Bilirubin 0.2 mg/dl (0.0-0.4); Estimated Creatinine Clearance 58 ml/min; Glucose 131 mg/dl (70-99); Magnesium 2.5 mg/dl (1.6-2.3); Sodium 131 mmol/L (135-145); Total Bilirubin 0.5 mg/dl (0.2-1.3); Total Protein 5.1 g/dl (6.3-8.2); eGFR > 60.00
--- NOTE | 2024-11-02 08:17 | VNURNOTE ---
Chart reviewed. Patient is current with [facility] nursing. Will continue to follow hospital course and DC plans.
--- NOTE | 2024-11-02 08:44 | W.PN.HOSP.TC ---
Today's Communication/Plan
-
wean O2 as tolerated
cont stress dose steroids
pureed diet
PT/OT
WBAT LLE w walker
Total hip precautions
Assessment / Plan
Assessment / Plan
Physical Exam
General: No acute distress appears comfortable at this time
HEENT: normocephalic atraumatic on high flow
Respiratory: Clear to auscultation b/l
Cardiac: S1/S2 and Tachycardia; No Murmur
GI: Soft, Non Tender, Non Distended and Normal Bowel Sounds
Musculoskeletal: No Clubbing, No Cyanosis, No Edema
Neuro: AO x 3
Psych: Calm
A/P: Patient is a 74F with PMH significant for RA, HTN and recent L SHARAN who presented w cough and SOB.
Multifocal Pneumonia
Acute Hypoxemic Respiratory Failure secondary to the above
Sepsis secondary to the above
- Patient presents with tachycardia, tachypnea, leukocytosis and clinical / CT evidence of multifocal pneumonia.
- Life-threatening organ dysfunction in the form of acute hypoxemic respiratory failure.
- COIVID / Flu negative in the ED.
- IV abx with cefepime and Flagyl given PCN allergy.
- IVF support while NPO since discontinued with start pureed diet as per speech
- Chest PT, nebs, IS,
-Pulm eval appreciated
Hiatal Hernia / GERD
- Suspected aspiration component given multifocal infiltrates and large hiatal hernia / esophageal air-fluid level noted on CT.
- NG placed for decompression in the ED, since discontinued with resolution nausea and start pureed diet as above (Abd X-ray also noted tube possibly in LLL bronchus vs hiatal hernia)
- IV PPI. Speech jm appreciated cleared for pureed diet
- Surgery eval appreciated outpt follow up for EGD and eventual repair
Hyponatremia
- Na = 125 down from pre-op value of 140.
- Likely due to ADH release s/p surgery, anesthesia, pain response
-significantly improved to 131 following IVF
- monitor for now
s/p L SHARAN 10/29/24
- Stable. no pain
- hip X-ray appreciated no acute abn's, left hip prosthetic in expected location
- Continue post-op care including ASA, PT, etc.
- Continue bowel regimen.
- Bladder scan protocol
-Orthopedic eval appreciated WBAT LLE w walker, total hip precautions
Rheumatoid Arthritis
Chronic Steroid Dependence
- Stable. No specific joint pains.
- Continue steroid stress dosing for now given recent surgery, current sepsis, etc.
- Resume usual home dose (prednisone 5mg BID) once stable.
Benign Hypertension
- BP currently on the lower side due to sepsis +/- hypovolemia, etc.
- Hold most BP agents for now. Holding parameters for metoprolol.
Hypothyroidism
- Stable. Continue T4 supplementation.
PT/OT SNF rehab
DVT Prophylaxis: SCDs / ASA
Code Status: DNR
Discussed with patient, patient's grandson Jacob, and Granddaughter in-law Liyah
I spent a total of 50 minutes with the patient or on the floor. More than 50% of this time involved counseling and coordination of care.
Anticipated Discharge: > 48 hours
Subjective/Interval History
-
Date of Service: November 02, 2024
Seen and examined at bedside in no acute distress sitting up comfortably in bed. On high flow. Reports feeling 'much better.'
Objective Data
-
Labs:
Laboratory Results
11/02/24
05:13
WBC 9.6
Hgb 10.1 L
Hct 30.1 L
Plt Count 267
Sodium 131 L
Potassium 4.0
Chloride 99
Carbon Dioxide 21 L
BUN 30 H
Creatinine 0.8
Glucose 131 H
Calcium 8.1 L
Total Bilirubin 0.5
AST 35
ALT 13
Alkaline Phosphatase 46
Vital Signs:
Vital Signs
Temp Pulse Resp BP Pulse Ox
97.7 F 89 25 117/72 96
11/02/24 07:15 11/02/24 06:00 11/02/24 06:00 11/02/24 06:00 11/02/24 05:00
I&O
11/01/24 11/02/24 11/03/24
06:59 06:59 06:59
Intake Total 2220 / 2220
Balance 2220 / 2220
--- NOTE | 2024-11-02 09:47 | PTOTSP ---
Addendum entered and electronically signed by ST Clemente 11/02/24 09:55:
*Aspiration risk is increased 2/2 possible PNA, tenuous respiratory status, severe odynophagia, and large hiatal hernia.
Original Note:
Clinical Swallow Evaluation
74F with admission for cough/SOB and suspected PNA. P/w clinical s/s of an impaired oropharyngeal swallow. Aspiration risk is increased 2/2 possible PNA, tenuous respiratory status, and severe odynophagia. Unable to r/o aspiration at bedside this
date. Recommend trial of puree (IDDSI 4) diet and thin liquids as tolerated, re: pt with poor appetite at this time. If difficulties persist, a VSE may be indicated to r/o aspiration.
Recommend:
1. Trial puree (IDDSI 4), thin liquid (IDDSI 0) via single sips
2. Meds whole in puree
3. Safe Swallowing Strategies: Small bites, single sips, slow rate, HOB elevated 90 degrees
4. Oral care 3-5x a day
5. MAKE NPO IF OVERT S/S OF ASPIRATION ARISE
6. Possible VSE to r/o presence of aspiration
7. PROFESSIONAL [employer]EF[employer] SALES CONSULTANT service will continue to follow at the acute care level, assess diet level tolerance, and provide dysphagia tx as needed
[2024-11-02] MEDS: SENOKOT 17.2 MG PO ×2 (10:00→20:16)
[2024-11-02] MEDS: FLORASTOR 250 MG PO ×2 (10:00→20:17)
[2024-11-02] MEDS: CRESTOR 20 MG PO (10:00)
[2024-11-02] MEDS: COLACE 100 MG PO ×2 (10:00→21:50)
[2024-11-02] MEDS: ASPIRIN 325 MG PO (10:00)
[2024-11-02] MEDS: CELEBREX 100 MG PO ×2 (10:00→20:16)
[2024-11-02] MEDS: NSS (PRESERVATIVE FREE) 10 ML IV ×2 (10:01→20:19)
[2024-11-02] MEDS: PROTONIX IV 40 MG IV ×2 (10:01→20:19)
--- NOTE | 2024-11-02 10:07 | W.PN.UPDATE ---
Update Note
Progress Note Update
Patient POD#3 Left SHARAN (Samantha). Was discharged home on 31 October 2024. Began feeling constitutional yesterday and presented back to the ED. Hypoxia in the 60s. CT negative for PE. Found to have a bad PNA. Continue treatment per the primary
team. When deemed safe PT/OT may be beneficial. May be WBAT LLE on walker. THPs. Dressing to remain
--- NOTE | 2024-11-02 10:07 | CON.PUL ---
Consultation
Consultation Request
Date/Time Consultation Requested: 11/01/2024
Date/Time Consultation Performed: 11/02/2020
Requesting Provider: Dr. Pan
Performing Provider: Dr. Bakari Man
Reason for Consultation: Acute hypoxemic respiratory failure-multifocal pneumonia
Medical History
-
History of Present Illness:
74-year-old woman with past medical history significant for hypertension, rheumatoid arthritis, recent left total hip arthroplasty on 10/29/2024 who presented to the emergency room complaining of cough and shortness of breath. Symptoms started
around 2017 with coughing and minimal phlegm production, she was discharged from the hospital on 10/31/2024. Cough progressed with posttussive emesis, shortness of breath, nausea. Reported generalized malaise, decreased appetite.
Denies any fever.
Denies left hip pain or mobility issues.
She was prompted to come to the emergency room when she slid on the floor and fell.
She was found to be hypoxemic.
CT of the chest demonstrated severe bilateral groundglass opacities concerning for pneumonia.
Past Medical History
Past Medical History: Other (See assessment and plan)
Social History
Tobacco: Former Smoker (Quit about 60 years ago)
Alcohol: Occasional
Drug: None
Family History
Family History: Reviewed & Not Pertinent
Allergies / Home Medications
Allergies
Allergy/AdvReac Type Severity Reaction Status Date / Time
adhesive Allergy Rash Verified 10/29/24 07:30
amoxicillin [From Augmentin] Allergy Nausea / Verified 10/29/24 07:30
Vomiting
clavulanic acid Allergy Nausea / Verified 10/29/24 07:30
[From Augmentin] Vomiting
methotrexate Allergy Itching Verified 10/29/24 07:30
Sulfa (Sulfonamide Allergy Nausea / Verified 10/29/24 07:30
Antibiotics) Vomiting
Home Medications
�Medication �Instructions �Recorded �Confirmed �Last Taken �Type
amlodipine 5 mg tablet 5 mg PO HS Blood Pressure 10/23/24 11/01/24 10/31/24 History
gabapentin 100 mg capsule 100 mg PO HS Pain 10/23/24 11/01/24 10/31/24 History
levothyroxine 125 mcg tablet 125 mcg PO DAILY Thyroid 10/23/24 11/01/24 11/01/24 History
lisinopril 20 1 tab PO HS Blood Pressure 10/23/24 11/01/24 10/31/24 History
mg-hydrochlorothiazide 25 mg tablet
metoprolol succinate 50 mg 50 mg PO HS Blood Pressure 10/23/24 11/01/24 10/31/24 History
tablet,extended release 24 hr
omeprazole 20 mg capsule,delayed 20 mg PO DAILY GERD 10/23/24 11/01/24 11/01/24 History
release
rosuvastatin 20 mg tablet (Crestor) 20 mg PO DAILY High Cholesterol 10/23/24 11/01/24 11/01/24 History
tramadol 50 mg tablet 50 mg PO HS Pain 10/23/24 11/01/24 10/31/24 History
Saccharomyces boulardii 250 mg 250 mg PO BID #1 cap 10/29/24 11/01/24 11/01/24 Rx
capsule (Florastor)
aspirin 325 mg tablet 325 mg PO DAILY blood clot 10/29/24 11/01/24 11/01/24 Rx
prevention #1 tab
cefadroxil 500 mg capsule 500 mg PO BID infection prevention 10/29/24 11/01/24 11/01/24 Rx
#14 caps
docusate sodium 100 mg capsule 100 mg PO BID stool softner #1 cap 10/29/24 11/01/24 11/01/24 Rx
(Colace)
sennosides 8.6 mg tablet (Senokot) 17.2 mg (2 x 8.6 mg) PO BID 10/29/24 11/01/24 11/01/24 Rx
laxative #2 tabs
acetaminophen 650 mg 1,300 mg PO Q12H Pain 11/01/24 11/01/24 11/01/24 History
tablet,extended release (Tylenol 8
Hour)
celecoxib 100 mg capsule 100 mg PO BID INFLAMMATION 11/01/24 11/01/24 11/01/24 History
ondansetron 4 mg disintegrating 4 mg PO Q6HPRN PRN n/v 11/01/24 11/01/24 Unknown History
tablet
oxycodone 5 mg tablet 5 mg PO Q6HPRN PRN 1 tab moderate 11/01/24 11/01/24 Unknown History
pain, 2 tabs severe pain
prednisone 10 mg tablet 10 mg PO BID INFLAMMATION 11/01/24 11/01/24 11/01/24 History
Review of Systems
-
History Source: Patient
All other systems: Negative unless noted
Vitals / Labs / Diagnostic Testing
Vital Signs
Temp Pulse Resp BP Pulse Ox
97.7 F 89 25 117/72 97
11/02/24 07:15 11/02/24 06:00 11/02/24 06:00 11/02/24 06:00 11/02/24 09:12
Lab Data
11/02/24 05:13
11/02/24 05:13
Microbiology
11/01/24 17:33 Nasal Swab Influenza Types A & B (VERO) - Final
Negative for Influenza A & B, NAAT
Negative results must be combined with clinical observations
and patient history.
Nucleic Acid Amplification test (NAAT)performed on the
[employer] ID NOW platform.
Diagnostic Testing:
Physical Exam
-
HEENT: Normocephalic
Cardiovascular: S1/S2 and JVD (n)
Respiratory: Wheeze (None), Rales (Bibasilar) and Non-Labored Respirations
GI: Soft and Non Distended
Neurology: Awake, Alert and Oriented
Skin: Warm
General: Comfortable (At rest, on high flow oxygen) and Other (Able to speak in full sentences)
Assessment
-
74-year-old woman with past medical history noted admitted to the hospital few days after undergoing left knee arthroplasty. Patient started with a cough, progressive shortness of breath and significant generalized malaise and decreased appetite.
Found to be hypoxemic with significant bilateral infiltrates on CAT scan. We were consulted for evaluation 11/02/2024.
Acute-hypoxemic respiratory failure
CT chest with severe bilateral groundglass opacities/large hiatal hernia filled with fluid, dilated esophagus..
Suspect aspiration pneumonia-Likely during surgery.
11/02/2024 patient has a very large hiatal hernia/stomach projects over the left pulmonary field.
Negative COVID/negative influenza.
Status post left total knee arthroplasty 10/29/2024
Anemia: Likely postoperative blood loss
Mild hyponatremia
Chronic prednisone use (RA): Random cortisol 15.7
Conditions present prior admission:
Hypertension
Hypothyroidism
Rheumatoid arthritis
Restless leg syndrome
Left total hip arthroplasty 10/29/2024
History of appendectomy
History of right elbow surgery
Former smoker in the distant past
Assessment and plan:
Clinical picture and timing suggest aspiration event during surgery.
She also does report posttussive vomiting. No longer having.
Suspect acute lung injury post aspiration as well as possible pneumonia/Pneumonitis.
Patient states that she was not aware of her large hiatal hernia.
No recent chest x-ray to review
-
Agree with current antibiotics cefepime/metronidazole.
Allergy to penicillin noted
Will attempt obtain a sputum culture
Monitor leukocytosis and fever curve.
-
Aspiration precautions
Briefly NG tube was in place now discontinued. Abdomen is soft. No vomiting
Avoid narcotics
IV PPI
-
Continue oxygen supplementation to maintain pulse ox above 90%.
Currently on high flow oxygen 95%, 55 L/min pulse ox is 96% 11/02/2024 at 10:30 AM.
Wean as able.
-
Continue stress dose of steroids-chronically on low-dose prednisone.Currently not hypotensive. Follow hemodynamics.
-
For secretion clearance okay to use nebulizers as needed patient does not have bronchospasm.
Incentive spirometer encouraged.
Antitussives
-
DVT prophylaxis currently on aspirin and SCDs. Consider pharmacological prophylaxis once cleared by orthopedics.
-
High risk situation.
DNR status noted
Will continue to follow

Data reviewed:
-
CT angiogram of the chest 11/01/2024:
There is no pulmonary embolism.
There is no aortic dissection.
There is no pneumothorax.
There are no abnormal pleural or parenchymal masses.
There are tiny bilateral pleural effusions.
There is severe predominantly central bilateral groundglass opacities in all lobes concerning for developing pneumonia. Interstitial lung disease cannot be excluded.
The mediastinum is normal.
There is no hilar or mediastinal lymphadenopathy.
There is no axillary lymphadenopathy.
There is a large hiatal hernia. Almost the entire stomach is within the thorax. The esophagus is distended and with a an air-fluid level.
The osseous structures show mild degenerative disease. There are old left-sided rib fractures.
[2024-11-02] MEDS: TYLENOL 650 MG PO (10:18)
[2024-11-02] MEDS: ROXICODONE 5 MG PO (10:18)
[2024-11-02] MEDS: MAXIPIME 2000 MG IV ×2 (10:20→21:51)
[2024-11-02] MEDS: STERILE WATER FOR INJECTION 10 ML IV ×2 (10:20→21:51)
[2024-11-02] MEDS: TESSALON PERLES 200 MG PO (10:52)
[2024-11-02] MEDS: NSS 1000 IV (10:59)
[2024-11-02] MEDS: MORPHINE SULFATE 2 MG IV ×2 (11:27→22:55)
--- NOTE | 2024-11-02 12:22 | CM ---
Patient seen bedside.
S/p recent Lt SHARAN 10/29/24. was home one day and readmitted to hospital.
Patient was home with [facility].
Patient lives alone.
patient has grandrigo James who was presnt in room during interview.
patient currently on high flow oxygen, not on oxygen at home.
--- NOTE | 2024-11-02 12:26 | CM ---
Patient seen bedside.
S/p recent Lt SHARAN 10/29/24. was home one day and readmitted to hospital.
Patient was home with [facility].
Patient lives alone.
patient has christi James who was present in room during interview.
Patient currently on high flow oxygen, not on oxygen at home.
Patient lives in a 2 story home with 3 steps to enter.
Ambulates with a cane and walker.
Patient has a first floor set up at home with a day bed and half bath.
PT/OT evals today, patient would prefer home and CM will follow for disposition closer to d/c.
PCP: Dr Rowell
Pharmacy: [facility] in [place]
Plan: SNF vs [facility].
--- NOTE | 2024-11-02 17:27 | CON.GS ---
Consultation
-
Date/Time Consultation Requested: 11/02/2024 8 AM
Date/Time Consultation Performed: 11/02/2024 2 PM
Requesting Provider: Dr. Vidales
Performing Provider: Dr. Herrera
Reason for Consultation: Hiatal hernia
Medical History
-
Chief Complaint: Shortness of breath
History of Present Illness:
This is a 74-year-old female with a history significant for hypertension, rheumatoid arthritis, known hiatal hernia, recent left total hip on 10/29/2024 who presented to our ED with shortness of breath found to be significantly hypoxemic. CT scan
demonstrated bilateral groundglass opacities concerning for pneumonia unclear etiology possibly aspiration? Patient states that she has been having trouble eating more and more recently particularly solid meals but does well with liquids. No
recent upper endoscopy. She offers no other complaints at this time.
Past Medical History
Past Medical History: Other (Hypertension, rheumatoid arthritis, hiatal hernia)
Past Surgical History: Other (Left total hip arthroplasty)
Social History
Tobacco: Former Smoker
Alcohol: Occasional
Drug: None
Family History
Family History: Reviewed & Not Pertinent
Allergies / Home Medications
Allergy/AdvReac Type Severity Reaction Status Date / Time
adhesive Allergy Rash Verified 10/29/24 07:30
amoxicillin [From Augmentin] Allergy Nausea / Verified 10/29/24 07:30
Vomiting
clavulanic acid Allergy Nausea / Verified 10/29/24 07:30
[From Augmentin] Vomiting
methotrexate Allergy Itching Verified 10/29/24 07:30
Sulfa (Sulfonamide Allergy Nausea / Verified 10/29/24 07:30
Antibiotics) Vomiting
�Medication �Instructions �Recorded �Confirmed �Type
amlodipine 5 mg tablet 5 mg PO HS Blood Pressure 10/23/24 11/01/24 History
gabapentin 100 mg capsule 100 mg PO HS Pain 10/23/24 11/01/24 History
levothyroxine 125 mcg tablet 125 mcg PO DAILY Thyroid 10/23/24 11/01/24 History
lisinopril 20 1 tab PO HS Blood Pressure 10/23/24 11/01/24 History
mg-hydrochlorothiazide 25 mg tablet
metoprolol succinate 50 mg 50 mg PO HS Blood Pressure 10/23/24 11/01/24 History
tablet,extended release 24 hr
omeprazole 20 mg capsule,delayed 20 mg PO DAILY GERD 10/23/24 11/01/24 History
release
rosuvastatin 20 mg tablet (Crestor) 20 mg PO DAILY High Cholesterol 10/23/24 11/01/24 History
tramadol 50 mg tablet 50 mg PO HS Pain 10/23/24 11/01/24 History
Saccharomyces boulardii 250 mg 250 mg PO BID #1 cap 10/29/24 11/01/24 Rx
capsule (Florastor)
aspirin 325 mg tablet 325 mg PO DAILY blood clot 10/29/24 11/01/24 Rx
prevention #1 tab
cefadroxil 500 mg capsule 500 mg PO BID infection prevention 10/29/24 11/01/24 Rx
#14 caps
docusate sodium 100 mg capsule 100 mg PO BID stool softner #1 cap 10/29/24 11/01/24 Rx
(Colace)
sennosides 8.6 mg tablet (Senokot) 17.2 mg (2 x 8.6 mg) PO BID 10/29/24 11/01/24 Rx
laxative #2 tabs
acetaminophen 650 mg 1,300 mg PO Q12H Pain 11/01/24 11/01/24 History
tablet,extended release (Tylenol 8
Hour)
celecoxib 100 mg capsule 100 mg PO BID INFLAMMATION 11/01/24 11/01/24 History
ondansetron 4 mg disintegrating 4 mg PO Q6HPRN PRN n/v 11/01/24 11/01/24 History
tablet
oxycodone 5 mg tablet 5 mg PO Q6HPRN PRN 1 tab moderate 11/01/24 11/01/24 History
pain, 2 tabs severe pain
prednisone 10 mg tablet 10 mg PO BID INFLAMMATION 11/01/24 11/01/24 History
Review of Systems
-
All other systems: Negative unless noted
A 10 point review of systems was completed, and was negative except as per HPI.
Physical Exam
Vital Signs
Temp Pulse Resp BP Pulse Ox
98.2 F 84 18 116/79 94
11/02/24 15:00 11/02/24 13:00 11/02/24 13:00 11/02/24 13:00 11/02/24 16:56
11/01/24 11/02/24 11/03/24
06:59 06:59 06:59
Actual Weight 61.689 kg
Body Mass Index (BMI) 20.1
Lab Results
11/02/24 05:13
11/02/24 05:13
WBC 9.6 10^3/uL (4.8-10.8) 11/02/24 05:13
Hgb 10.1 g/dL (12.0-16.0) L 11/02/24 05:13
Hct 30.1 % (37.0-47.0) L 11/02/24 05:13
Plt Count 267 10^3/uL (130-400) 11/02/24 05:13
Abs Immat Gran (auto) 0.1 10^3/uL (0-0.05) H 11/01/24 17:33
Neutrophils % 86.7 % (42.2-75.2) H 11/01/24 17:33
Physical Exam
General: Well Developed
HEENT: Normocephalic
Respiratory: Non Labored Respirations (On high flow oxygen)
GI: Soft, Non Tender and Non Distended
Data Reviewed
-
CT Scan: Image Personally Visualized and interpreted, Report Reviewed by me, Discussed with Physician and Discussed with Patient
Total Time Spent with Patient (in minutes): 30
Assessment / Plan
-
This is a 74-year-old female who presents with hypoxemia in the setting of a recent left hip arthroplasty on 10/29/2024 found to have bilateral pneumonia, some question whether this is secondary to aspiration. In either case, the patient is
somewhat symptomatic from this hiatal hernia though there appears to be no acute signs of gastric volvulus or obstruction.
No acute surgical intervention warranted at this time
Okay for a soft/pur�e diet, encouraged the patient to take most of her food in the liquid form as this will pass more easily through her herniated stomach.
I will have her follow-up with me for an outpatient endoscopy. After which time, we can discuss surgical repair.
Patient agreeable to plan of care above, all questions answered.
General surgery will sign off for now, please call with any questions or concerns.
I spent 60 minutes in total for the care of this patient today including direct patient care and counseling, reviewing labs, imaging, coordination of care, as well as documentation.
--- NOTE | 2024-11-02 18:11 | PTCARENOTE ---
Pt received @ 0700. AAOx3. Stating pain with cough. PRN Tylenol, Roxicodone, and Morphine used for coughing pain. Pt now stating pain is tolerable and no longer requesting pain medication. Tessalon Perles administered for cough. Recieved on max High
Flow; weaned to 55L/55%. Dry nonproductive cough. Received with NGT; unable to confirm placement with XR due to hiatal hernia. Pt denying nausea. NGT removed. Sinus rhythm on environmental monitoring technician. Pt assisted OOB to chair x1 with rolling walker. Stress
incontinence. Assisted x1 with rolling walker to BSC.
[2024-11-02] MEDS: NEURONTIN 100 MG PO (20:16)
[2024-11-02] MEDS: TOPROL XL 50 MG PO (20:17)
[2024-11-02] MEDS: FLUSH (NSS) 4 FLUSH IV (20:21)
[2024-11-03] VITALS (26 sets, daily range): BP systolic 110–143; BP diastolic 68–100; PULSE 75; O2SAT 94; BMI 20.7
[2024-11-03] MEDS: FLUSH (NSS) 2 FLUSH IV (00:59)
[2024-11-03] MEDS: ZOFRAN 4 MG IV ×2 (00:59→23:27)
--- NOTE | 2024-11-03 01:00 | PTCARENOTE ---
medicated with morphine for pain- very effective- pt was sleeping soundly and woke up vomiting- vomited very small amount . felt nauseas- Zofran given see mar
[2024-11-03] MEDS: MORPHINE SULFATE 2 MG IV ×2 (02:54→21:45)
[2024-11-03] MEDS: FLUSH (NSS) 4 FLUSH IV ×2 (02:55→20:39)
[2024-11-03] MEDS: FLUSH (NSS) 6 FLUSH IV (02:58)
[2024-11-03] MEDS: SOLU-CORTEF 50 MG IV ×3 (03:00→20:38)
[2024-11-03] MEDS: SYNTHROID 125 MCG PO (04:32)
[2024-11-03] MEDS: TESSALON PERLES 200 MG PO (04:32)
[2024-11-03] MEDS: FLAGYL 500 MG 100 IV ×3 (05:14→21:37)
[2024-11-03 05:15] LABS: Hematocrit 29.1 % (37.0-47.0); Hemoglobin 10.1 g/dL (12.0-16.0); Mean Corp Hgb Conc. 34.7 g/dL (33.0-37.0); Mean Corpuscular Hgb 32.5 pg (27.0-31.0); Mean Corpuscular Volume 93.6 fL (81.0-99.0); Mean Platelet Volume 9.5 fL (7.4-10.4); Platelet Count 285 10^3/uL (130-400); Red Blood Cell Count 3.11 10^6/uL (4.20-5.40); Red Cell Dist. Width 13.9 % (11.5-14.5); White Blood Cell Count 12.1 10^3/uL (4.8-10.8)
[2024-11-03 05:34] LABS: Blood Urea Nitrogen 34 mg/dl (7-17); Calcium 8.2 mg/dl (8.4-10.2); Carbon Dioxide 21 mmol/L (22-30); Chloride 103 mmol/L (98-107); Estimated Creatinine Clearance 69 ml/min; Glucose 165 mg/dl (70-99); Magnesium 2.8 mg/dl (1.6-2.3); Phosphorus 2.3 mg/dl (2.5-4.5); Potassium 3.7 mmol/L (3.5-5.1); Sodium 135 mmol/L (135-145); eGFR > 60.00
[2024-11-03] MEDS: PROTONIX IV 40 MG IV ×2 (08:19→20:34)
[2024-11-03] MEDS: FLORASTOR 250 MG PO ×2 (08:19→20:29)
[2024-11-03] MEDS: SENOKOT 17.2 MG PO ×2 (08:19→20:28)
[2024-11-03] MEDS: CELEBREX 100 MG PO ×2 (08:19→20:29)
[2024-11-03] MEDS: ASPIRIN PO (08:19)
[2024-11-03] MEDS: CRESTOR 20 MG PO (08:19)
[2024-11-03] MEDS: COLACE 100 MG PO ×2 (08:19→20:29)
[2024-11-03] MEDS: NSS (PRESERVATIVE FREE) 10 ML IV ×2 (08:20→20:37)
--- NOTE | 2024-11-03 08:55 | W.PN.UPDATE ---
Update Note
Progress Note Update
Patient POD#4 Left SHARAN (Samantha). Was discharged home on 31 October 2024. Began feeling constitutional Oct 30 and presented back to the ED. Hypoxia in the 60s. CT negative for PE. Found to have a bad PNA. Continue treatment per the primary
team. Appreciate GS input regarding hiatal hernia. When deemed safe PT/OT may be beneficial. May be WBAT LLE on walker. THPs. Dressing to remain. Upon D/c recommend Ortho 2 weeks post-op as scheduled for staple removal, if possible
[2024-11-03] MEDS: STERILE WATER FOR INJECTION 10 ML IV ×2 (10:40→21:37)
[2024-11-03] MEDS: MAXIPIME 2000 MG IV ×2 (10:40→21:36)
--- NOTE | 2024-11-03 12:19 | W.PN.HOSP.TC ---
Today's Communication/Plan
-
wean O2 supplementation as tolerated
cont antibiotics
Low dose trazodone HS
PT/OT
ASA switched to Lovenox DVT ppx
Assessment / Plan
Assessment / Plan
Physical Exam
General: No acute distress appears comfortable at this time
HEENT: normocephalic atraumatic on high flow
Respiratory: Clear to auscultation b/l
Cardiac: S1/S2 and Tachycardia; No Murmur
GI: Soft, Non Tender, Non Distended and Normal Bowel Sounds
Musculoskeletal: No Clubbing, No Cyanosis, No Edema
Neuro: AO x 3
Psych: Calm
A/P: Patient is a 74F with PMH significant for RA, HTN and recent L SHARAN who presented w cough and SOB.
Multifocal Pneumonia
Acute Hypoxemic Respiratory Failure secondary to the above
Sepsis secondary to the above
- Patient presents with tachycardia, tachypnea, leukocytosis and clinical / CT evidence of multifocal pneumonia.
- Life-threatening organ dysfunction in the form of acute hypoxemic respiratory failure.
- COVID / Flu negative in the ED.
- IV abx with cefepime and Flagyl given PCN allergy.
- IVF support while NPO since discontinued with start pureed diet as per speech
- Chest PT, nebs, IS,
-Pulm eval appreciated
Hiatal Hernia / GERD
- Suspected aspiration component given multifocal infiltrates and large hiatal hernia / esophageal air-fluid level noted on CT.
- NG placed for decompression in the ED, since discontinued with resolution nausea and start pureed diet as above (Abd X-ray also noted tube possibly in LLL bronchus vs hiatal hernia)
- IV PPI.
-Speech jm appreciated cleared for pureed diet
- Surgery eval appreciated outpt follow up for EGD and eventual repair
Hyponatremia resolved
- Na = 125 down from pre-op value of 140.
- Likely due to ADH release s/p surgery, anesthesia, pain response
-significantly improved to 130s following IVF since completed.
s/p L SHARAN 10/29/24
- Stable. no pain
- hip X-ray appreciated no acute abn's, left hip prosthetic in expected location
- Continue post-op care including ASA, PT, etc.
- Continue bowel regimen.
- Bladder scan protocol
-Orthopedic eval appreciated WBAT LLE w walker, total hip precautions
Rheumatoid Arthritis
Chronic Steroid Dependence
- Stable. No specific joint pains.
- stress dose steroids Hydrocortisone 50 mg IV Q8H tapered to Q12H
- Eventual taper back to home dose prednisone 5mg BID
Hypertension
- Home metoprolol resumed with holding parameters
- most of patient's home antihypertensives held on admission d/t concerns soft pressures sepsis
-monitor and resume bp medications as appropriate
Hypothyroidism
- Stable. Continue T4 supplementation.
Poor Sleep
-low dose Trazodone started
PT/OT SNF rehab
DVT Prophylaxis: SCDs / Lovenox (plan to return to ASA DVT ppx on discharge if within 28 days of orthopedic procedure)
Code Status: DNR
Discussed with patient and, patient's grandson Jacob
I spent a total of 50 minutes with the patient or on the floor. More than 50% of this time involved counseling and coordination of care.
Anticipated Discharge: 24 - 48 hours
Subjective/Interval History
-
Date of Service: November 03, 2024
Seen and examined at bedside in no acute distress sitting up comfortably bed. Endorses poor sleep overnight, episode nausea vomiting.
Objective Data
-
Labs:
Laboratory Results
11/03/24
04:46
WBC 12.1 H
Hgb 10.1 L
Hct 29.1 L
Plt Count 285
Sodium 135
Potassium 3.7
Chloride 103
Carbon Dioxide 21 L
BUN 34 H
Creatinine 0.7
Glucose 165 H
Calcium 8.2 L
Vital Signs:
Vital Signs
Temp Pulse Resp BP Pulse Ox
98.3 F 64 17 111/73 93
11/03/24 11:20 11/03/24 06:00 11/03/24 06:00 11/03/24 06:00 11/03/24 08:41
I&O
11/02/24 11/03/24 11/04/24
06:59 06:59 06:59
Intake Total 2220 / 2220
Balance 2220 / 2220
[2024-11-03] MEDS: NEUTRA-PHOS POWDER PACKET 250 MG PO ×3 (15:38→20:28)
[2024-11-03] MEDS: TYLENOL 650 MG PO (15:38)
[2024-11-03] MEDS: LOVENOX 40 MG SC (17:08)
--- NOTE | 2024-11-03 18:31 | W.PN.PUL3 ---
Today's Communication / Plan
-
Continue antibiotics
No change in steroids
Head of bed elevated
Chest x-ray morning
Assessment
-
74-year-old woman with past medical history noted admitted to the hospital few days after undergoing left knee arthroplasty. Patient started with a cough, progressive shortness of breath and significant generalized malaise and decreased appetite.
Found to be hypoxemic with significant bilateral infiltrates on CAT scan. We were consulted for evaluation 11/02/2024.
Acute-hypoxemic respiratory failure
CT chest with severe bilateral groundglass opacities/large hiatal hernia filled with fluid, dilated esophagus..
Suspect aspiration pneumonia-Likely during surgery.
11/02/2024 patient has a very large hiatal hernia/stomach projects over the left pulmonary field.
Negative COVID/negative influenza.
Status post left total knee arthroplasty 10/29/2024
Anemia: Likely postoperative blood loss
Mild hyponatremia
Chronic prednisone use (RA): Random cortisol 15.7
Conditions present prior admission:
Hypertension
Hypothyroidism
Rheumatoid arthritis
Restless leg syndrome
Left total hip arthroplasty 10/29/2024
History of appendectomy
History of right elbow surgery
Former smoker in the distant past
Assessment and plan:
Unfortunately, no significant improvement from subjective standpoint
Remains on high flow oxygen, 10 L, 97%
Clinical picture and timing suggest aspiration event during surgery.
She also does report posttussive vomiting. No longer having.
Suspect acute lung injury post aspiration as well as possible pneumonia/Pneumonitis.
Patient states that she was not aware of her large hiatal hernia.
-
Agree with current antibiotics cefepime/metronidazole.
Allergy to penicillin noted
Will attempt obtain a sputum culture
Monitor leukocytosis and fever curve.
Chest x-ray in a.m.
-
Aspiration precautions
Briefly NG tube was in place now discontinued. Abdomen is soft. No vomiting
Avoid narcotics
IV PPI
-
Continue oxygen supplementation to maintain pulse ox above 90%.
Currently on high flow oxygen 95%, 55 L/min pulse ox is 96% 11/02/2024 at 10:30 AM.
Wean as able.
Currently on 10 L, 97% which is encouraging
-
Continue stress dose of steroids-chronically on low-dose prednisone.Currently not hypotensive. Follow hemodynamics.
-
For secretion clearance okay to use nebulizers as needed patient does not have bronchospasm.
Incentive spirometer encouraged.
Antitussives
-
DVT prophylaxis currently on aspirin and SCDs. Consider pharmacological prophylaxis once cleared by orthopedics.
-
High risk situation.
DNR status noted
Will continue to follow

Data reviewed:
-
CT angiogram of the chest 11/01/2024:
There is no pulmonary embolism.
There is no aortic dissection.
There is no pneumothorax.
There are no abnormal pleural or parenchymal masses.
There are tiny bilateral pleural effusions.
There is severe predominantly central bilateral groundglass opacities in all lobes concerning for developing pneumonia. Interstitial lung disease cannot be excluded.
The mediastinum is normal.
There is no hilar or mediastinal lymphadenopathy.
There is no axillary lymphadenopathy.
There is a large hiatal hernia. Almost the entire stomach is within the thorax. The esophagus is distended and with a an air-fluid level.
The osseous structures show mild degenerative disease. There are old left-sided rib fractures.
Subjective Data
-
Date of Service:
Date of Service: November 03, 2024
Subjective:
Patient seen earlier today. Late entry. Overall, patient continues to complain of shortness of breath. She has a mild cough, denies chest pain, nausea. Remains on high flow oxygen..
Objective Data
Data Reviewed
Vital Signs / I&O / Oxygen:
Vital Signs
Temp Pulse Resp BP Pulse Ox
98.7 F 79 19 130/83 97
11/03/24 15:50 11/03/24 16:00 11/03/24 16:00 11/03/24 16:00 11/03/24 17:53
Intake and Output
11/02/24 11/03/24 11/04/24
06:59 06:59 06:59
Intake Total 2220 / 2220
Balance 0 / 2220
SaO2 97
Nasal Cannula flow liters per 50
minute
Physical Exam
General: Comfortable
HEENT: Normocephalic and Anicteric
Cardiovascular: S1-S2, Regular Rhythm, Murmur (n) and Rub (n)
Respiratory: Wheeze (n), Crackles (few), Rhonchi (few) and Non-Labored Respirations
GI: Soft, Non Distended and Non Tender
Neurology: Awake, Alert and No Motor Deficits
Skin: Cyanosis (n) and Jaundice (n)
Labs/Micro/Reports
Lab Data
11/03/24 04:46
11/03/24 04:46
Microbiology
11/01/24 19:08 Blood/Venous Blood Culture - Preliminary
No Growth in 24 hours- Final report to follow
11/01/24 19:08 Blood/Venous Blood Culture - Preliminary
No Growth in 24 hours- Final report to follow
11/01/24 17:33 Nasal Swab Influenza Types A & B (VERO) - Final
Negative for Influenza A & B, NAAT
Negative results must be combined with clinical observations
and patient history.
Nucleic Acid Amplification test (NAAT)performed on the
[employer] platform.
[2024-11-03] MEDS: TOPROL XL 50 MG PO (20:28)
[2024-11-03] MEDS: DESYREL 25 MG PO (20:28)
[2024-11-03] MEDS: NEURONTIN 100 MG PO (20:29)
[2024-11-03] MEDS: ROXICODONE 5 MG PO (21:36)
--- NOTE | 2024-11-03 22:32 | PTCARENOTE ---
weaned to 7 liters mf- ax3- sinus bp wnl afebrile still cantrell
[2024-11-04] VITALS (10 sets, daily range): BP systolic 115–145; BP diastolic 75–90; PULSE 73; O2SAT 92
[2024-11-04] MEDS: ROXICODONE 10 MG PO (01:06)
[2024-11-04] MEDS: MORPHINE SULFATE 2 MG IV (01:47)
--- NOTE | 2024-11-04 03:50 | PTCARENOTE ---
pt feels pain regimen has been ineffective- sara and morphine she says are not enough- stenotype operator ordered one time order for karen- see mar- pt felt some relief
--- NOTE | 2024-11-04 04:36 | PTCARENOTE ---
weaned to 4 liters
[2024-11-04] MEDS: TESSALON PERLES 200 MG PO (04:58)
[2024-11-04] MEDS: TYLENOL 650 MG PO ×2 (04:58→22:59)
[2024-11-04] MEDS: SYNTHROID 125 MCG PO (04:59)
[2024-11-04] MEDS: ROXICODONE 5 MG PO (04:59)
[2024-11-04] MEDS: FLAGYL 500 MG 100 IV ×3 (05:01→21:33)
[2024-11-04 05:41] LABS: Hemoglobin 9.7 g/dL (12.0-16.0); Mean Corp Hgb Conc. 32.3 g/dL (33.0-37.0); Mean Corpuscular Hgb 31.3 pg (27.0-31.0); Mean Corpuscular Volume 96.8 fL (81.0-99.0); Mean Platelet Volume 9.5 fL (7.4-10.4); Platelet Count 297 10^3/uL (130-400); White Blood Cell Count 14.2 10^3/uL (4.8-10.8)
[2024-11-04 06:05] LABS: Blood Urea Nitrogen 34 mg/dl (7-17); Calcium 8.2 mg/dl (8.4-10.2); Carbon Dioxide 24 mmol/L (22-30); Chloride 102 mmol/L (98-107); Estimated Creatinine Clearance 69 ml/min; Glucose 150 mg/dl (70-99); Magnesium 2.5 mg/dl (1.6-2.3); Phosphorus 2.1 mg/dl (2.5-4.5); Potassium 3.3 mmol/L (3.5-5.1); Sodium 137 mmol/L (135-145); eGFR > 60.00
--- NOTE | 2024-11-04 06:24 | W.PN.HOSP.TC ---
Today's Communication/Plan
-
wean O2 supplementation as tolerated
PT/OT
cont abx
pain control
steroid taper as per pulm
Assessment / Plan
Assessment / Plan
Physical Exam
General: No acute distress appears comfortable at this time
HEENT: normocephalic atraumatic on 2L nasal cannula supplementation stable respiratory status
Respiratory: Clear to auscultation b/l
Cardiac: S1/S2 and Tachycardia; No Murmur
GI: Soft, Non Tender, Non Distended and Normal Bowel Sounds
Musculoskeletal: No Clubbing, No Cyanosis, No Edema
Neuro: AO x 3
Psych: Calm
A/P: Patient is a 74F with PMH significant for RA, HTN and recent L SHARAN who presented w cough and SOB.
Multifocal Pneumonia
Acute Hypoxemic Respiratory Failure secondary to the above
Sepsis secondary to the above
- Patient presents with tachycardia, tachypnea, leukocytosis and clinical / CT evidence of multifocal pneumonia.
- Life-threatening organ dysfunction in the form of acute hypoxemic respiratory failure.
- COVID / Flu negative in the ED.
- IV abx with cefepime and Flagyl given PCN allergy.
- IVF support while NPO since discontinued with start pureed diet as per speech
- Chest PT, nebs, IS,
-Pulm eval appreciated
-improving weaned down from high flow to 2L. Stable for downgrade to Tele 11/04/24
Hiatal Hernia / GERD
- Suspected aspiration component given multifocal infiltrates and large hiatal hernia / esophageal air-fluid level noted on CT.
- NG placed for decompression in the ED, since discontinued with resolution nausea and start pureed diet as above (Abd X-ray also noted tube possibly in LLL bronchus vs hiatal hernia)
- IV PPI.
-Speech jm appreciated cleared for pureed diet
- Surgery eval appreciated outpt follow up for EGD and eventual repair
Hyponatremia resolved
- Na = 125 down from pre-op value of 140.
- Likely due to ADH release s/p surgery, anesthesia, pain response
-significantly improved to 130s following IVF since completed.
s/p L SHARAN 10/29/24
- Stable. no pain
- hip X-ray appreciated no acute abn's, left hip prosthetic in expected location
- Continue post-op care including ASA, PT, etc.
- Continue bowel regimen.
- Bladder scan protocol
-Orthopedic eval appreciated WBAT LLE w walker, total hip precautions
Rheumatoid Arthritis
Chronic Steroid Dependence
- Stable. No specific joint pains.
- stress dose steroids Hydrocortisone 50 mg IV Q8H taper as per pulm
- Eventual taper back to home dose prednisone 5mg BID
Hypertension
- Home metoprolol resumed with holding parameters
- most of patient's home antihypertensives held on admission d/t concerns soft pressures sepsis
-monitor and resume bp medications as appropriate
Hypothyroidism
- Stable. Continue T4 supplementation.
Poor Sleep
-low dose Trazodone started
PT/OT SNF rehab
DVT Prophylaxis: SCDs / Lovenox (plan to return to ASA DVT ppx on discharge if within 28 days of orthopedic procedure)
Code Status: DNR
Medically stable for downgrade to Tele
Discussed with patient. Maryan Jacob called, no answer received, message with brief update and call back number left.
I spent a total of 50 minutes with the patient or on the floor. More than 50% of this time involved counseling and coordination of care.
Anticipated Discharge: 24 - 48 hours
Subjective/Interval History
-
Date of Service: November 04, 2024
Seen and examined at bedside in no acute distress sitting up comfortably in bed. Reports difficulty sleeping at night due to coughing/choking. Back pain improved since prn po pain medications given overnight. Notably weaned down to 2L, stable
respiratory status.
Objective Data
-
Labs:
Laboratory Results
11/04/24
05:16
WBC 14.2 H
Hgb 9.7 L
Hct 30.0 L
Plt Count 297
Sodium 137
Potassium 3.3 L
Chloride 102
Carbon Dioxide 24
BUN 34 H
Creatinine 0.7
Glucose 150 H
Calcium 8.2 L
Vital Signs:
Vital Signs
Temp Pulse Resp BP Pulse Ox
98.3 F 68 30 115/75 95
11/04/24 04:00 11/04/24 04:00 11/04/24 04:00 11/04/24 04:00 11/04/24 04:00
I&O
11/02/24 11/03/24 11/04/24
06:59 06:59 06:59
Intake Total 2220 / 2220 440 / 440
Output Total 950 / 950
Balance 2220 / 2220 -510 / -510
--- NOTE | 2024-11-04 06:28 | PTCARENOTE ---
weaned to 2 liters
[2024-11-04] MEDS: POTASSIUM PHOSPHATE 259.0909 MEQ IV (08:21)
[2024-11-04] MEDS: COLACE 100 MG PO ×2 (08:22→20:01)
[2024-11-04] MEDS: CRESTOR 20 MG PO (08:22)
[2024-11-04] MEDS: SENOKOT 17.2 MG PO ×2 (08:22→20:04)
[2024-11-04] MEDS: SOLU-CORTEF 50 MG IV ×3 (08:22→23:00)
[2024-11-04] MEDS: FLORASTOR 250 MG PO ×2 (08:22→20:01)
[2024-11-04] MEDS: CELEBREX 100 MG PO ×2 (08:22→20:01)
[2024-11-04] MEDS: NSS (PRESERVATIVE FREE) 10 ML IV ×2 (08:23→20:02)
[2024-11-04] MEDS: NEUTRA-PHOS POWDER PACKET 250 MG PO ×3 (08:23→18:40)
[2024-11-04] MEDS: PROTONIX IV 40 MG IV ×2 (08:23→20:02)
[2024-11-04] MEDS: MUCINEX 1200 MG PO ×2 (08:23→20:01)
--- NOTE | 2024-11-04 08:43 | W.PN.UPDATE ---
Update Note
Progress Note Update
Patient POD#5 Left SHARAN (Samantha). Looks and feels a bit better this AM. Was discharged home on 31 October 2024. Began feeling constitutional Oct 30 and presented back to the ED. Hypoxia was in the 60s. CT negative for PE. Found to have a
bad PNA. Continue treatment per the primary team. IV ABX. Appreciate GS input regarding hiatal hernia. When deemed safe PT/OT may be beneficial. May be WBAT LLE on walker. THPs. Dressing to remain. Upon D/c recommend Ortho 2 weeks post-op as
scheduled for staple removal, if possible
[2024-11-04] MEDS: MAXIPIME 2000 MG IV ×2 (11:13→21:31)
[2024-11-04] MEDS: STERILE WATER FOR INJECTION 10 ML IV ×2 (11:13→21:31)
--- NOTE | 2024-11-04 16:02 | W.PN.PUL3 ---
Today's Communication / Plan
-
Oxygenation improved
Decrease test dose steroids
Continue antibiotics
Aspiration precautions, positional therapy, discussed behavioral changes
Will require follow-up chest x-ray in 4 to 6 weeks
Assessment
-
74-year-old woman with past medical history noted admitted to the hospital few days after undergoing left knee arthroplasty. Patient started with a cough, progressive shortness of breath and significant generalized malaise and decreased appetite.
Found to be hypoxemic with significant bilateral infiltrates on CAT scan. We were consulted for evaluation 11/02/2024.
Acute-hypoxemic respiratory failure
CT chest with severe bilateral groundglass opacities/large hiatal hernia filled with fluid, dilated esophagus..
Suspect aspiration pneumonia-Likely during surgery.
11/02/2024 patient has a very large hiatal hernia/stomach projects over the left pulmonary field.
Negative COVID/negative influenza.
Status post left total knee arthroplasty 10/29/2024
Anemia: Likely postoperative blood loss
Mild hyponatremia
Chronic prednisone use (RA): Random cortisol 15.7
Conditions present prior admission:
Hypertension
Hypothyroidism
Rheumatoid arthritis
Restless leg syndrome
Left total hip arthroplasty 10/29/2024
History of appendectomy
History of right elbow surgery
Former smoker in the distant past
Assessment and plan:
At this time, patient is improved, oxygen requirement improved, down to 2 L
Was on high flow prior
Chest x-ray 11/04 shows bilateral interstitial changes and large hiatal hernia
Clinical picture and timing suggest aspiration event during surgery.
She also does report posttussive vomiting. No longer having.
Suspect acute lung injury post aspiration as well as possible pneumonia/Pneumonitis.
Patient states that she was not aware of her large hiatal hernia.
-
Agree with current antibiotics cefepime/metronidazole.
Allergy to penicillin noted
Will attempt obtain a sputum culture, unable to reduce
Monitor leukocytosis and fever curve.
Eventual follow-up chest x-ray in 4 to 6 weeks
-
Aspiration precautions
Briefly NG tube was in place now discontinued. Abdomen is soft. No vomiting
Avoid narcotics
IV PPI
-
Continue oxygen supplementation to maintain pulse ox above 90%.
Currently on high flow oxygen 95%, 55 L/min pulse ox is 96% 11/02/2024 at 10:30 AM.
Wean as able.
Was on 10 L, now down to 2 L
-
Decrease stress dose steroids
-
For secretion clearance okay to use nebulizers as needed patient does not have bronchospasm.
Incentive spirometer encouraged.
Antitussives
-
DVT prophylaxis currently on aspirin and SCDs. Consider pharmacological prophylaxis once cleared by orthopedics.
-
High risk situation.
DNR status noted
Will continue to follow

Data reviewed:
-
CT angiogram of the chest 11/01/2024:
There is no pulmonary embolism.
There is no aortic dissection.
There is no pneumothorax.
There are no abnormal pleural or parenchymal masses.
There are tiny bilateral pleural effusions.
There is severe predominantly central bilateral groundglass opacities in all lobes concerning for developing pneumonia. Interstitial lung disease cannot be excluded.
The mediastinum is normal.
There is no hilar or mediastinal lymphadenopathy.
There is no axillary lymphadenopathy.
There is a large hiatal hernia. Almost the entire stomach is within the thorax. The esophagus is distended and with a an air-fluid level.
The osseous structures show mild degenerative disease. There are old left-sided rib fractures.
Subjective Data
-
Date of Service:
Date of Service: November 04, 2024
Subjective:
Patient seen and examined earlier today. Late entry. Patient continues to improve from breathing standpoint. Denies significant shortness of breath, chest pain, nausea. Has mild dry cough. Primary complaint is back discomfort
Objective Data
Data Reviewed
Vital Signs / I&O / Oxygen:
Vital Signs
Temp Pulse Resp BP Pulse Ox
98.5 F 62 17 121/75 94
11/04/24 15:40 11/04/24 06:00 11/04/24 06:00 11/04/24 06:00 11/04/24 12:55
Intake and Output
11/03/24 11/04/24 11/05/24
06:59 06:59 06:59
Intake Total 440 / 440
Output Total 950 / 950
Balance -510 / -510
SaO2 94
Nasal Cannula flow liters per 2
minute
Physical Exam
General: Comfortable
HEENT: Normocephalic and Anicteric
Cardiovascular: S1-S2, Regular Rhythm, Murmur (n) and Rub (n)
Respiratory: Wheeze (n), Crackles (few), Rhonchi (few) and Non-Labored Respirations
GI: Soft, Non Distended and Non Tender
Neurology: Awake, Alert and No Motor Deficits
Skin: Cyanosis (n) and Jaundice (n)
Labs/Micro/Reports
Lab Data
11/04/24 05:16
11/04/24 05:16
Microbiology
11/01/24 19:08 Blood/Venous Blood Culture - Preliminary
No Growth in 48 hours- Final report to follow
11/01/24 19:08 Blood/Venous Blood Culture - Preliminary
No Growth in 48 hours- Final report to follow
11/01/24 17:33 Nasal Swab Influenza Types A & B (VERO) - Final
Negative for Influenza A & B, NAAT
Negative results must be combined with clinical observations
and patient history.
Nucleic Acid Amplification test (NAAT)performed on the
[employer] platform.
[2024-11-04] MEDS: BenGay-Like TOPICAL ×3 (16:21→21:07)
[2024-11-04] MEDS: LOVENOX 40 MG SC (18:40)
[2024-11-04] MEDS: DESYREL 25 MG PO (21:29)
[2024-11-04] MEDS: TOPROL XL 50 MG PO (21:30)
[2024-11-04] MEDS: NEURONTIN 100 MG PO (21:30)
[2024-11-04] MEDS: NEUTRA-PHOS POWDER PACKET PO (21:30)
[2024-11-05 03:00] VITALS: BP 129/71
[2024-11-05] MEDS: SYNTHROID 125 MCG PO (05:10)
[2024-11-05] MEDS: FLAGYL 500 MG 100 IV ×3 (05:11→21:34)
--- NOTE | 2024-11-05 06:33 | W.PN.HOSP.TC ---
Today's Communication/Plan
-
discharge planning SNF rehab
wean O2 supplementation as tolerated
Home oxygen assessment
taper steroids
ok to discontinue cardiac cath technician
resume home amlodipine with holding parameters SBP<120
Assessment / Plan
Assessment / Plan
Physical Exam
General: No acute distress appears comfortable at this time
HEENT: normocephalic atraumatic on 2L nasal cannula supplementation stable respiratory status
Respiratory: Clear to auscultation b/l
Cardiac: S1/S2 and Tachycardia; No Murmur
GI: Soft, Non Tender, Non Distended and Normal Bowel Sounds
Musculoskeletal: No Clubbing, No Cyanosis, No Edema
Neuro: AO x 3
Psych: Calm
A/P: Patient is a 74F with PMH significant for RA, HTN and recent L SHARAN who presented w cough and SOB.
Multifocal Pneumonia
Acute Hypoxemic Respiratory Failure secondary to the above
Sepsis secondary to the above
- Patient presents with tachycardia, tachypnea, leukocytosis and clinical / CT evidence of multifocal pneumonia.
- Life-threatening organ dysfunction in the form of acute hypoxemic respiratory failure.
- COVID / Flu negative in the ED.
- IV abx with cefepime and Flagyl given PCN allergy.
- IVF support while NPO since discontinued with start pureed diet as per speech
- Chest PT, nebs, IS,
-Pulm eval appreciated
-improving weaned down from high flow to 2L. Stable downgraded to from IMU to Tele 11/04/24 ok to discontinue cardiac cath technician 11/05/24
Hiatal Hernia / GERD
- Suspected aspiration component given multifocal infiltrates and large hiatal hernia / esophageal air-fluid level noted on CT.
- NG placed for decompression in the ED, since discontinued with resolution nausea and start pureed diet as above (Abd X-ray also noted tube possibly in LLL bronchus vs hiatal hernia)
- IV PPI.
-Speech jm appreciated cleared for pureed diet
- Surgery eval appreciated outpt follow up for EGD and eventual repair
Hyponatremia resolved
- Na = 125 down from pre-op value of 140.
- Likely due to ADH release s/p surgery, anesthesia, pain response
-significantly improved to 130s following IVF since completed.
s/p L SHARAN 10/29/24
- Stable. no pain
- hip X-ray appreciated no acute abn's, left hip prosthetic in expected location
- Continue post-op care including ASA, PT, etc.
- Continue bowel regimen.
- Bladder scan protocol
-Orthopedic eval appreciated WBAT LLE w walker, total hip precautions
Rheumatoid Arthritis
Chronic Steroid Dependence
- Stable. No specific joint pains.
- stress dose steroids Hydrocortisone 50 mg IV Q8H tapered to Q12H
- Eventual taper back to home dose prednisone 5mg BID
Hypertension
- Home metoprolol resumed with holding parameters
- most of patient's home antihypertensives held on admission d/t concerns soft pressures sepsis
-monitor and resume bp medications as appropriate
-Amlodipine 5 mg daily resumed with holding parameters SBP<120, lisinopril HCTz remain on hold.
Hypothyroidism
- Stable. Continue T4 supplementation.
Poor Sleep
-low dose Trazodone started, no significant improvement noted however, since discontinued
-monitor for now, sleep issues is largely due to position restrictions d/t hip precautions and hiatal hernia,
PT/OT SNF rehab
DVT Prophylaxis: SCDs / Lovenox (plan to return to ASA DVT ppx on discharge if within 28 days of orthopedic procedure)
Code Status: DNR
Discussed with patient. Maryan Jacob called, no answer received, message with brief update and call back number left.
I spent a total of 50 minutes with the patient or on the floor. More than 50% of this time involved counseling and coordination of care.
Anticipated Discharge: 24 - 48 hours
Subjective/Interval History
-
Date of Service: November 05, 2024
Seen and examined at bedside in no acute distress sitting up comfortably in bed. Overall reports feeling well though poor sleep persists due to positioning (hip precautions and elevation to prevent choking d/t hiatal hernia).
Objective Data
-
Labs:
Laboratory Results
11/05/24
06:25
WBC Pending
Hgb Pending
Hct Pending
Plt Count Pending
Sodium Pending
Potassium Pending
Chloride Pending
Carbon Dioxide Pending
BUN Pending
Creatinine Pending
Glucose Pending
Calcium Pending
Vital Signs:
Vital Signs
Temp Pulse Resp BP Pulse Ox
98.5 F 74 16 129/71 95
11/05/24 03:00 11/05/24 03:00 11/05/24 03:00 11/05/24 03:00 11/05/24 03:00
I&O
11/03/24 11/04/24 11/05/24
06:59 06:59 06:59
Intake Total 440 / 440 200 / 200
Output Total 950 / 950
Balance -510 / -510 200 / 200
[2024-11-05] MEDS: TYLENOL 650 MG PO ×4 (06:47→21:29)
[2024-11-05 07:00] VITALS: BP 132/78; BP 140/81; BP 142/79; PULSE 67; PULSE 71; PULSE 88
[2024-11-05] MEDS: CELEBREX 100 MG PO ×2 (08:30→19:34)
[2024-11-05] MEDS: MUCINEX 1200 MG PO ×2 (08:30→19:33)
[2024-11-05] MEDS: SENOKOT 17.2 MG PO ×2 (08:30→19:35)
[2024-11-05] MEDS: COLACE 100 MG PO ×2 (08:30→19:33)
[2024-11-05] MEDS: FLORASTOR 250 MG PO ×2 (08:30→19:34)
[2024-11-05] MEDS: CRESTOR 20 MG PO (08:30)
[2024-11-05] MEDS: PROTONIX IV 40 MG IV ×2 (08:31→19:37)
[2024-11-05] MEDS: NSS (PRESERVATIVE FREE) 10 ML IV ×2 (08:31→19:36)
[2024-11-05] MEDS: NEUTRA-PHOS POWDER PACKET 250 MG PO (08:31)
[2024-11-05] MEDS: SOLU-CORTEF 50 MG IV ×2 (08:32→19:38)
--- NOTE | 2024-11-05 08:48 | W.PN.PUL3 ---
Today's Communication / Plan
-
Oxygenation improved - continue to wean down O2 while maintaining SpO2 >90-94% and check ambulatory pulse oximetry prior to discharge
Decrease stress dose steroids as she clinically improved with eventual resumption of her home prednisone dose of 10 mg BID
Continue antibiotics to complete a 7-day course assuming she continues to clinically improve and remains afebrile for 48 hours prior to stopping antibiotics
Aspiration precautions, positional therapy, discussed behavioral changes
Will require follow-up chest x-ray in 4 to 6 weeks
Pulmonary service will continue to follow along
Assessment
-
74-year-old woman with past medical history noted admitted to the hospital few days after undergoing left knee arthroplasty. Patient started with a cough, progressive shortness of breath and significant generalized malaise and decreased appetite.
Found to be hypoxemic with significant bilateral infiltrates on CAT scan. We were consulted for evaluation 11/02/2024.
Impression:
Acute-hypoxemic respiratory failure
CT chest with severe bilateral groundglass opacities/large hiatal hernia filled with fluid, dilated esophagus..
Suspect aspiration pneumonia-Likely during surgery.
11/02/2024 patient has a very large hiatal hernia/stomach projects over the left pulmonary field.
Negative COVID/negative influenza.
Status post left total knee arthroplasty 10/29/2024
Anemia: Likely postoperative blood loss
Mild hyponatremia - now resolved
Chronic prednisone use (RA): Random cortisol 15.7
Conditions present prior admission:
Hypertension
Hypothyroidism
Rheumatoid arthritis
Restless leg syndrome
Left total hip arthroplasty 10/29/2024
History of appendectomy
History of right elbow surgery
Former smoker in the distant past
Assessment and plan:
At this time, patient is improved, oxygen requirement improved, down to 2 L
Was on high flow prior
Chest x-ray 11/04 shows bilateral interstitial changes and large hiatal hernia
Clinical picture and timing suggest aspiration event during surgery.
She also does report posttussive vomiting - now resolved
Suspect acute lung injury post aspiration
Patient states that she was not aware of her large hiatal hernia.
-
Agree with current antibiotics cefepime/IV metronidazole.
Allergy to penicillin noted
Obtain sputum culture if patient can produce a decent sample
Monitor leukocytosis and fever curve.
Eventual follow-up chest x-ray in 4 to 6 weeks
-
Aspiration precautions
Briefly NG tube was in place now discontinued. Abdomen is soft. No vomiting
Avoid narcotics
IV PPI - eventual transition to PO with resumption of her home dose
-
Continue oxygen supplementation to maintain pulse ox above 90%.
Previously on high flow oxygen 95%, 55 L/min and her pulse ox was 96% on 11/02/2024 at 10:30 AM.
Now on nasal cannula at 2L/min
-
Decrease stress dose steroids as she continues to clinically improve, with eventual resumption of her home prednisone dose of 10 mg BID
-
For secretion clearance okay to use nebulizers as needed patient does not have bronchospasm.
Incentive spirometer encouraged.
Antitussives
-
DVT prophylaxis currently on aspirin and SCDs. Consider pharmacological prophylaxis once cleared by orthopedics.
-
High risk situation.
DNR status noted
Will continue to follow

Data reviewed:
-
CT angiogram of the chest 11/01/2024:
There is no pulmonary embolism.
There is no aortic dissection.
There is no pneumothorax.
There are no abnormal pleural or parenchymal masses.
There are tiny bilateral pleural effusions.
There is severe predominantly central bilateral groundglass opacities in all lobes concerning for developing pneumonia. Interstitial lung disease cannot be excluded.
The mediastinum is normal.
There is no hilar or mediastinal lymphadenopathy.
There is no axillary lymphadenopathy.
There is a large hiatal hernia. Almost the entire stomach is within the thorax. The esophagus is distended and with a an air-fluid level.
The osseous structures show mild degenerative disease. There are old left-sided rib fractures.
Total time spent today was 38 minutes for this encounter. Time includes reviewing laboratory test/imaging results, reviewing pertinent medical records, obtaining and reviewing medical history, performing an appropriate exam, ordering medications,
tests and procedures. Time also includes documentation of this encounter, coordinating patient care and communicating with other healthcare professionals. Total time does not include separately billed tests performed on this date of service.
Subjective Data
-
Date of Service:
Date of Service: November 05, 2024
Chief Complaint: Pulmonary Follow Up
Subjective:
Patient seen and evaluated today at bedside. Currently on 2 L/min nasal cannula and saturating 93%. She says she is feeling better. Has a dry cough. Denies chest pain, NAVA, abdominal pain, nausea, fevers or chills.
Review of Systems
General: Other (Negative unless mentioned above)
Objective Data
Data Reviewed
Vital Signs / I&O / Oxygen:
Vital Signs
Temp Pulse Resp BP Pulse Ox
97.6 F 67 20 142/79 95
11/05/24 07:00 11/05/24 07:00 11/05/24 07:00 11/05/24 07:00 11/05/24 07:00
Intake and Output
11/04/24 11/05/24 11/06/24
06:59 06:59 06:59
Intake Total 440 / 440 200 / 200
Output Total 950 / 950
Balance -510 / -510 200 / 200
SaO2 95
Nasal Cannula flow liters per 2
minute
Physical Exam
General: Respiratory Distress (n), Comfortable, Chills (n) and Sweats (n)
HEENT: Normocephalic and Anicteric
Cardiovascular: S1-S2, Murmur (n), Rub (n) and Peripheral Edema (n)
Respiratory: Wheeze (n), Crackles (Bilateral), Rhonchi (n) and Non-Labored Respirations
GI: Soft, Non Distended, Non Tender and Normal Bowel Sounds
Neurology: Awake, Alert and Tremors (n)
Skin: Warm, Dry, Cyanosis (n) and Jaundice (n)
Labs/Micro/Reports
Lab Data
11/05/24 06:25
11/05/24 06:25
Microbiology
11/01/24 19:08 Blood/Venous Blood Culture - Preliminary
No Growth in 72 hours- Final report to follow
11/01/24 19:08 Blood/Venous Blood Culture - Preliminary
No Growth in 72 hours- Final report to follow
[2024-11-05 08:54] LABS: Hematocrit 27.8 % (37.0-47.0); Hemoglobin 9.4 g/dL (12.0-16.0); Mean Corp Hgb Conc. 33.8 g/dL (33.0-37.0); Mean Corpuscular Hgb 32.2 pg (27.0-31.0); Mean Corpuscular Volume 95.2 fL (81.0-99.0); Mean Platelet Volume 9.8 fL (7.4-10.4); Platelet Count 310 10^3/uL (130-400); Red Blood Cell Count 2.92 10^6/uL (4.20-5.40); Red Cell Dist. Width 13.9 % (11.5-14.5); White Blood Cell Count 10.4 10^3/uL (4.8-10.8)
[2024-11-05 09:01] VITALS: BP 132/78; BP 140/81; BP 142/79; PULSE 67; PULSE 71; PULSE 88
[2024-11-05 09:25] LABS: Blood Urea Nitrogen 33 mg/dl (7-17); Calcium 7.9 mg/dl (8.4-10.2); Carbon Dioxide 25 mmol/L (22-30); Chloride 102 mmol/L (98-107); Estimated Creatinine Clearance 80 ml/min; Glucose 134 mg/dl (70-99); Magnesium 2.2 mg/dl (1.6-2.3); Phosphorus 2.6 mg/dl (2.5-4.5); Potassium 3.5 mmol/L (3.5-5.1); Sodium 137 mmol/L (135-145); eGFR > 60.00
--- NOTE | 2024-11-05 09:50 | W.PN.UPDATE ---
Update Note
Progress Note Update
Patient POD#6 Left SHARAN (Samantha). Looks and feels better this AM. Was discharged home on 31 October 2024. Began feeling constitutional Oct 30 and presented back to the ED. Hypoxia was in the 60s. CT negative for PE. Found to have a bad PNA.
Continue treatment per the primary team. IV ABX. Appreciate GS input regarding hiatal hernia. When deemed safe PT/OT may be beneficial. May be WBAT LLE on walker. THPs. Dressing to remain. Upon D/c recommend Ortho 2 weeks post-op as scheduled for
staple removal, if possible
[2024-11-05] MEDS: BenGay-Like 1 APPLIC TOPICAL (11:17)
[2024-11-05] MEDS: STERILE WATER FOR INJECTION 10 ML IV ×2 (11:18→21:31)
[2024-11-05] MEDS: MAXIPIME 2000 MG IV ×2 (11:18→21:31)
--- NOTE | 2024-11-05 12:59 | CM ---
Chart reviewed. Pt is currently being recommended for SNF at this time
Discussed SNF w/ pt bedside. Pt is declining rehab, states she is active w/ a HH agency prior to coming to hospital. Pt is current w/ [facility]
Spoke w/ pt's grandson, [id number] and PT conference call. Family says pt needs rehab as her home is [place] very old [place] house and is not safe for her at this time. Per granddaughter, pt urinated on herself while sitting on the couch and has
slipped and fell off of the couch due to weakness from pneumonia. Family has concerns regarding pt's safety if she does not go to rehab. Family stated pt may agree to [facility] if she has a private room. CM informed family
that facilities may only have semi private and cannot guarantee pt would be able to get a private room. CM sent referrals to identified facilities, awaiting responses.
Per PT, if pt cont to decline rehab, she will need commode at home
Updated hospitalist, Dr. Vidales agreeable to poss d/c tomorrow
Plan: SNF; pending accepting facility vs home; MICAH w/ [facility] and commode if pt refuses rehab or is unable to get private room
[2024-11-05 15:00] VITALS: BP 123/70
[2024-11-05] MEDS: BenGay-Like TOPICAL ×2 (17:06→19:29)
[2024-11-05] MEDS: LOVENOX 40 MG SC (17:06)
[2024-11-05 19:10] VITALS: BP 134/76; BP 142/94; BP 143/94; BP 144/82; PULSE 65; PULSE 66; PULSE 82
[2024-11-05] MEDS: NEURONTIN 100 MG PO (21:30)
[2024-11-05] MEDS: NORVASC 5 MG PO (21:30)
[2024-11-05] MEDS: TOPROL XL 50 MG PO (21:30)
[2024-11-05] MEDS: ROXICODONE 5 MG PO (23:17)
[2024-11-05 23:30] VITALS: BP 115/74
[2024-11-06] MEDS: TUMS CHEWABLE TABLET 200 MG PO ×2 (00:03→06:09)
[2024-11-06] MEDS: SYNTHROID 125 MCG PO (05:24)
[2024-11-06] MEDS: FLAGYL 500 MG 100 IV ×3 (05:24→21:07)
[2024-11-06 06:00] VITALS: BMI 20.4
--- NOTE | 2024-11-06 06:29 | W.PN.UPDATE ---
Update Note
Progress Note Update
Patient POD#8 Left SHARAN (Samantha). Denies and complaints or concerns with respect to left hip. Denies any left hip pain. Found to have a bad PNA. Continue treatment per the primary team. IV ABX. When deemed safe PT/OT may be beneficial. May be
WBAT LLE on walker. THPs. Dressing to remain. Upon D/C recommend Ortho 2 weeks post-op as scheduled for staple removal, if possible.
[2024-11-06 07:00] VITALS: BP 114/69; BP 131/77; BP 133/75; PULSE 77; PULSE 83; PULSE 91
[2024-11-06] MEDS: PROTONIX IV 40 MG IV ×2 (08:28→19:51)
[2024-11-06] MEDS: MUCINEX 1200 MG PO ×2 (08:28→19:51)
[2024-11-06] MEDS: NSS (PRESERVATIVE FREE) 10 ML IV ×2 (08:28→19:51)
[2024-11-06] MEDS: FLORASTOR 250 MG PO ×2 (08:28→19:50)
[2024-11-06] MEDS: SOLU-CORTEF 50 MG IV (08:29)
[2024-11-06] MEDS: CELEBREX 100 MG PO ×2 (08:29→19:50)
[2024-11-06] MEDS: COLACE PO ×2 (08:29→08:33)
[2024-11-06] MEDS: SENOKOT PO ×2 (08:29→08:33)
[2024-11-06] MEDS: BenGay-Like TOPICAL (08:29)
[2024-11-06] MEDS: CRESTOR 20 MG PO (08:29)
--- NOTE | 2024-11-06 09:29 | W.PN.PUL3 ---
Addendum entered and electronically signed by Gautam Styles MD 11/09/24 14:57:
[facility] Inquiry Response:
Suspected subacute blood loss anemia
Addendum entered and electronically signed by Gautam Styles MD 11/07/24 01:28:
Pt seen and evaluated on 11/06/2024
Original Note:
Today's Communication / Plan
-
Oxygenation improved - continue to wean down O2 while maintaining SpO2 >90-94% and check ambulatory pulse oximetry prior to discharge
Decrease stress dose steroids as she clinically improved with eventual resumption of her home prednisone dose of 10 mg BID
Continue antibiotics to complete a 7-day course assuming she continues to clinically improve and remains afebrile for 48 hours prior to stopping antibiotics
Aspiration precautions, positional therapy, discussed behavioral changes
Will require follow-up chest x-ray in 4 to 6 weeks
Pulmonary service will continue to follow along
Assessment
-
74-year-old woman with past medical history noted admitted to the hospital few days after undergoing left knee arthroplasty. Patient started with a cough, progressive shortness of breath and significant generalized malaise and decreased appetite.
Found to be hypoxemic with significant bilateral infiltrates on CAT scan. We were consulted for evaluation 11/02/2024.
Impression:
Acute-hypoxemic respiratory failure
CT chest with severe bilateral groundglass opacities/large hiatal hernia filled with fluid, dilated esophagus..
Suspect aspiration pneumonia - likely intra-/deep-operatively related
11/02/2024 patient has a very large hiatal hernia/stomach projects over the left pulmonary field.
Negative COVID/negative influenza.
Status post left total knee arthroplasty 10/29/2024
Anemia: Likely postoperative blood loss
Mild hyponatremia - now resolved
Chronic prednisone use (RA): Random cortisol 15.7
Conditions present prior admission:
Hypertension
Hypothyroidism
Rheumatoid arthritis
Restless leg syndrome
Left total hip arthroplasty 10/29/2024
History of appendectomy
History of right elbow surgery
Former smoker in the distant past
Assessment and plan:
At this time, patient is improved, oxygen requirement improved, down to 2-3 L
Was on high flow prior
Chest x-ray 11/04 shows bilateral interstitial changes and large hiatal hernia
Clinical picture and timing suggest aspiration event during surgery.
She also does report posttussive vomiting - now resolved
Suspect acute lung injury post aspiration
Patient states that she was not aware of her large hiatal hernia.
-
Agree with current antibiotics cefepime/IV metronidazole.
Allergy to penicillin noted
Obtain sputum culture if patient can produce a decent sample
Monitor leukocytosis and fever curve.
Eventual follow-up chest x-ray in 4 to 6 weeks
-
Aspiration precautions
Briefly NG tube was in place now discontinued. Abdomen is soft. No vomiting, although she does endorse occasional heartburn
Avoid narcotics
IV PPI - eventual transition to PO with resumption of her home dose
-
Continue oxygen supplementation to maintain pulse ox above 90%.
Previously on high flow oxygen 95%, 55 L/min and her pulse ox was 96% on 11/02/2024 at 10:30 AM.
Now on nasal cannula at 2-3L/min
-
Decrease stress dose steroids as she continues to clinically improve, with eventual resumption of her home prednisone dose of 10 mg BID
-
For secretion clearance okay to use nebulizers as needed patient does not have bronchospasm.
Incentive spirometer encouraged.
Antitussives
-
DVT prophylaxis: LMWH
-
DNR status noted
Will continue to follow

Data reviewed:
-
CT angiogram of the chest 11/01/2024:
There is no pulmonary embolism.
There is no aortic dissection.
There is no pneumothorax.
There are no abnormal pleural or parenchymal masses.
There are tiny bilateral pleural effusions.
There is severe predominantly central bilateral groundglass opacities in all lobes concerning for developing pneumonia. Interstitial lung disease cannot be excluded.
The mediastinum is normal.
There is no hilar or mediastinal lymphadenopathy.
There is no axillary lymphadenopathy.
There is a large hiatal hernia. Almost the entire stomach is within the thorax. The esophagus is distended and with a an air-fluid level.
The osseous structures show mild degenerative disease. There are old left-sided rib fractures.
Total time spent today was 36 minutes for this encounter. Time includes reviewing laboratory test/imaging results, reviewing pertinent medical records, obtaining and reviewing medical history, performing an appropriate exam, ordering medications,
tests and procedures. Time also includes documentation of this encounter, coordinating patient care and communicating with other healthcare professionals. Total time does not include separately billed tests performed on this date of service.
Subjective Data
-
Date of Service:
Date of Service: November 06, 2024
Chief Complaint: Pulmonary Follow Up
Subjective:
Seen this AM on 11/06/2024 - late note entry. Remains on 3L/min, she is depressed that she is still hospitalized. Reports that her cough has improved. SOB also better. Feels fatigue with activity (i.e., walking to the bathroom). Has occasional
heartburn + belching. She denies chest pain, abd pain, N/V/f/c.
Review of Systems
General: Other (negative unless mentioned above)
Objective Data
Data Reviewed
Vital Signs / I&O / Oxygen:
Vital Signs
Temp Pulse Resp BP Pulse Ox
98.2 F 77 22 131/77 90
11/06/24 07:00 11/06/24 07:00 11/06/24 07:00 11/06/24 07:00 11/06/24 07:00
Intake and Output
11/05/24 11/06/24 11/07/24
06:59 06:59 06:59
Intake Total 200 / 200 2119
Balance 200 / 200 2119
SaO2 90
Nasal Cannula flow liters per 2
minute
Physical Exam
General: Respiratory Distress (n), Comfortable, Chills (n) and Sweats (n)
HEENT: Normocephalic and Anicteric
Cardiovascular: S1-S2, Murmur (n), Rub (n) and Peripheral Edema (n)
Respiratory: Wheeze (n), Crackles (Bibasilar), Rhonchi (n) and Non-Labored Respirations
GI: Soft, Non Distended, Non Tender and Normal Bowel Sounds
Neurology: AO x 3 and Tremors (n)
Skin: Warm, Dry, Cyanosis (n) and Jaundice (n)
Labs/Micro/Reports
Microbiology
11/01/24 19:08 Blood/Venous Blood Culture - Preliminary
No Growth in 4 days- Final report to follow
11/01/24 19:08 Blood/Venous Blood Culture - Preliminary
No Growth in 4 days- Final report to follow
[2024-11-06 10:16] LABS: Hematocrit 29.5 % (37.0-47.0); Hemoglobin 9.8 g/dL (12.0-16.0); Mean Corp Hgb Conc. 33.2 g/dL (33.0-37.0); Mean Corpuscular Hgb 31.8 pg (27.0-31.0); Mean Corpuscular Volume 95.8 fL (81.0-99.0); Mean Platelet Volume 9.5 fL (7.4-10.4); Platelet Count 328 10^3/uL (130-400); Red Blood Cell Count 3.08 10^6/uL (4.20-5.40); White Blood Cell Count 16.4 10^3/uL (4.8-10.8)
[2024-11-06 10:37] LABS: NT-proBNP 3730 pg/ml
[2024-11-06 10:46] LABS: Blood Urea Nitrogen 32 mg/dl (7-17); Calcium 8.7 mg/dl (8.4-10.2); Carbon Dioxide 28 mmol/L (22-30); Chloride 101 mmol/L (98-107); Estimated Creatinine Clearance 79 ml/min; Glucose 103 mg/dl (70-99); Magnesium 1.9 mg/dl (1.6-2.3); Phosphorus 2.3 mg/dl (2.5-4.5); Potassium 3.1 mmol/L (3.5-5.1); Sodium 135 mmol/L (135-145); eGFR > 60.00
[2024-11-06 10:51] LABS: Procalcitonin 0.64 ng/ml (0.0-0.25)
--- NOTE | 2024-11-06 11:19 | RESPNOTE ---
Ambulation Pulse ox done at this time
Resting RA-86%
Placed on 2 liters 87-89%
Increased to 3 liter to start walk--90%
Patient walked approx 15 feet 86-87% increased to 4 liters no change increased to 6 liters 90%. Patient ambulated a total of 22 FT on 6 liter 90%, placed back o 3 liter resting in bed 90-92%
[2024-11-06 11:31] VITALS: PULSE 74
[2024-11-06] MEDS: STERILE WATER FOR INJECTION 10 ML IV ×2 (11:39→21:08)
[2024-11-06] MEDS: MAXIPIME 2000 MG IV ×2 (11:40→21:07)
--- NOTE | 2024-11-06 13:55 | W.PN.HOSP.TC ---
Addendum entered and electronically signed by Abhilash Alvarenga MD 11/07/24 09:49:
Leukocytosis could also be from IV steroids
Original Note:
Today's Communication/Plan
-
Continue AB
Wean O2
Continue IS
Assessment / Plan
Assessment / Plan
Patient is a 74F with PMH significant for RA, HTN and recent L SHARAN who presented w cough and SOB.
CVS: S1-S2 normal
Chest: few rales
Abdomen: Soft, NT / Bowel sounds present
Extremities: No edema, normal pulses
# Multifocal Pneumonia
Acute Hypoxemic Respiratory Failure secondary to the above
Sepsis secondary to the above
COVID / Flu negative in the ED.
IV abx with cefepime and Flagyl given PCN allergy.
Pureed diet as per speech
Chest PT, nebs, IS,
Pulm eval appreciated
improving weaned down from high flow to 3L.
# Hiatal Hernia / GERD
- Suspected aspiration component given multifocal infiltrates and large hiatal hernia / esophageal air-fluid level noted on CT.
- NG placed for decompression in the ED, since discontinued with resolution nausea and start pureed diet as above (Abd X-ray also noted tube possibly in LLL bronchus vs hiatal hernia)
- IV PPI.
- Speech jm appreciated cleared for pureed diet
- Surgery eval appreciated outpt follow up for EGD and eventual repair
# Anemia-check iron studies
# Hypokalemia-replace
# Hypophosphatemia-replace
# Hyponatremia resolved
- Na - 125 down from pre-op value of 140.
- Likely due to ADH release s/p surgery, anesthesia, pain response
- Significantly improved to 130s following IVF since completed.
# s/p L SHARAN 10/29/24
- Stable. no pain
- Hip X-ray appreciated no acute abn's, left hip prosthetic in expected location
- Continue post-op care including ASA, PT
- Continue bowel regimen.
- Bladder scan protocol
- Orthopedic eval appreciated WBAT LLE w walker, total hip precautions
# Rheumatoid Arthritis
Chronic Steroid Dependence
- Stable. No specific joint pains.
- stress dose steroids Hydrocortisone 50 mg IV Q8H tapered to 25 mg IV Q12H
- Eventual taper back to home dose prednisone 5mg BID
# Hypertension
- Home metoprolol resumed with holding parameters
- Amlodipine 5 mg daily resumed with holding parameters SBP<120, Restart lisinopril and Hold HCTz
# Hypothyroidism
- Stable. Continue T4 supplementation.
# Insomnia
- Low dose Trazodone started, no significant improvement noted however, since discontinued
- Monitor for now, sleep issues is largely due to position restrictions d/t hip precautions and hiatal hernia,
# DVT Prophylaxis: SCDs / Lovenox (plan to return to ASA DVT ppx on discharge if within 28 days of orthopedic procedure)
# Code Status: DNR
D/W Case management
D/W rn
Updated Grand Son
Anticipated Discharge: 24 - 48 hours
Subjective/Interval History
-
Date of Service: November 06, 2024
Objective Data
-
Labs:
Laboratory Results
11/06/24
09:51
WBC 16.4 H
Hgb 9.8 L
Hct 29.5 L
Plt Count 328
Sodium 135
Potassium 3.1 L
Chloride 101
Carbon Dioxide 28
BUN 32 H
Creatinine 0.6
Glucose 103 H
Calcium 8.7
Vital Signs:
Vital Signs
Temp Pulse Resp BP Pulse Ox
98.2 F 77 22 131/77 90
11/06/24 07:00 11/06/24 07:00 11/06/24 07:00 11/06/24 07:00 11/06/24 07:00
I&O
11/05/24 11/06/24 11/07/24
06:59 06:59 06:59
Intake Total 200 / 200 2119
Balance 200 / 200 2119
--- NOTE | 2024-11-06 14:27 | CM ---
CM spoke w/ [facility] regarding pt's referral.
Per Vamshi, residents at SNF have COVID and unable to offer bed to pt as pt gets very sick easily and would not be appropriate to admit.
CM spoke w/ [facility] - [phone] regarding pt's referral. Per Monik, can accept pt but will not have an available bed until Tuesday.
Spoke w/ hospitalist, per Dr. Alvarenga, pt may be ready to d/c before Tuesday but will cont to monitor and assess. Pt is currently on 3L O2, home O2 assessment completed today.
Spoke w/ pt's grandson Jacob about poss exploring additional SNF facilities, he did not appear willing to do this as pt prefers [facility]. [facility]BE[facility] explained that if the doctor determines a pt medically stable for d/c, they cannot remain in hospital
awaiting a preferred facility. Jacob understood this and will contact doctor. Jacob stated he and his will be at [facility].
Plan: Disposition will be determined on pt's d/c date.
Rehab vs home w/ O2 and commode if family does not wish to explore other facilities if pt is ready to d/c before Tuesday
If d/c home, will need script for commode. PT will provide commode, [facility] can order O2.
[2024-11-06 15:00] VITALS: BP 137/91
--- NOTE | 2024-11-06 15:19 | VNURNOTE ---
Home 02 assessment results reviewed. Rec'ed updates from [facility] Boucher. Possibility that patient may DC home. O2 info faxed to Ginette at [facility]. She confirmed they have 10L 02 concentrators in stock (pt needed 6L w/amb per 11/06 test).
Ginette/Deirdre aware DC date is pending. [facility] will continue to follow hospitalization and DC dispo.
[2024-11-06] MEDS: ZESTRIL 10 MG PO (16:04)
[2024-11-06] MEDS: KCL 40 MEQ PO (16:04)
[2024-11-06 16:09] LABS: Iron 44 ug/dl (37-170)
[2024-11-06 16:18] LABS: Percent Saturation 16 % (20-50); Total Iron Binding Capacity 262 ug/dl (265-497)
[2024-11-06 16:51] LABS: Ferritin 50.6 ng/ml (11.1-264.0)
[2024-11-06 17:05] LABS: Vitamin B12 487 pg/ml (239-931)
[2024-11-06] MEDS: NEUTRA-PHOS POWDER PACKET 250 MG PO (17:46)
[2024-11-06] MEDS: LOVENOX 40 MG SC (17:46)
[2024-11-06] MEDS: COLACE 100 MG PO (19:50)
[2024-11-06] MEDS: SENOKOT 17.2 MG PO (19:54)
[2024-11-06] MEDS: SOLU-CORTEF 25 MG IV (19:55)
[2024-11-06] MEDS: NEURONTIN 100 MG PO (21:10)
[2024-11-06] MEDS: NORVASC 5 MG PO (21:10)
[2024-11-06] MEDS: TOPROL XL 50 MG PO (21:11)
[2024-11-06] MEDS: NEUTRA-PHOS POWDER PACKET PO (21:12)
[2024-11-06 23:10] VITALS: BP 148/84
[2024-11-06] MEDS: PEPCID 20 MG PO (23:14)
[2024-11-07] MEDS: SYNTHROID 125 MCG PO (05:19)
[2024-11-07] MEDS: FLAGYL 500 MG 100 IV ×3 (05:19→21:02)
[2024-11-07 06:00] VITALS: BMI 20.3
[2024-11-07 06:05] LABS: Hematocrit 29.1 % (37.0-47.0); Hemoglobin 9.9 g/dL (12.0-16.0); Mean Corpuscular Hgb 31.8 pg (27.0-31.0); Mean Corpuscular Volume 93.6 fL (81.0-99.0); Mean Platelet Volume 9.6 fL (7.4-10.4); Platelet Count 326 10^3/uL (130-400); Red Blood Cell Count 3.11 10^6/uL (4.20-5.40); Red Cell Dist. Width 13.7 % (11.5-14.5); White Blood Cell Count 18.8 10^3/uL (4.8-10.8)
[2024-11-07 06:26] LABS: Blood Urea Nitrogen 28 mg/dl (7-17); Calcium 8.9 mg/dl (8.4-10.2); Carbon Dioxide 24 mmol/L (22-30); Chloride 101 mmol/L (98-107); Estimated Creatinine Clearance 79 ml/min; Glucose 86 mg/dl (70-99); Magnesium 1.6 mg/dl (1.6-2.3); Potassium 3.5 mmol/L (3.5-5.1); Sodium 134 mmol/L (135-145); eGFR > 60.00
[2024-11-07 07:32] VITALS: BP 143/89
[2024-11-07] MEDS: MUCINEX PO ×2 (09:12→22:11)
[2024-11-07] MEDS: ZOFRAN 4 MG IV ×2 (09:21→16:23)
[2024-11-07] MEDS: COLACE PO ×2 (09:23→19:51)
[2024-11-07] MEDS: SENOKOT PO ×2 (09:23→19:52)
--- NOTE | 2024-11-07 09:36 | W.PN.HOSP.TC ---
Addendum entered and electronically signed by Abhilash Alvarenga MD 11/07/24 10:09:
Grandson updated
Original Note:
Today's Communication/Plan
-
X ray of the abdomen and chest
No plans for discharge today
Assessment / Plan
Assessment / Plan
Patient is a 74F with PMH significant for RA, HTN and recent L SHARAN who presented w cough and SOB.
CVS: S1-S2 normal
Chest: few rales
Abdomen: Soft, NT / Bowel sounds present
Extremities: No edema, normal pulses
Left hip site looks OK
# Vomiting and 2 episodes of diarrhea
-Due to shortage of norovirus kits will not order however there is an outbreak
-Supportive care and symptomatic treatment
-With the patient's history of hiatal hernia and vomiting we will check an x-ray of the abdomen and chest.,
# Multifocal Pneumonia, likely aspiration pneumonia
Acute Hypoxemic Respiratory Failure secondary to the above
Sepsis secondary to the above
COVID / Flu negative in the ED.
IV abx with cefepime and Flagyl given PCN allergy.
Pureed diet as per speech
Chest PT, nebs, IS,
improving weaned down from high flow to 3L.
# Hiatal Hernia / GERD
- Suspected aspiration component given multifocal infiltrates and large hiatal hernia / esophageal air-fluid level noted on CT.
- NG placed for decompression in the ED, since discontinued with resolution nausea and start pureed diet as above (Abd X-ray also noted tube possibly in LLL bronchus vs hiatal hernia)
- IV PPI.
- Speech jm appreciated cleared for pureed diet
- Surgery eval appreciated outpt follow up for EGD and eventual repair
# Anemia-PO iron when able to take
# Hypokalemia-replaced
# Hypophosphatemia-replace
# Hyponatremia resolved
- Na - 125 down from pre-op value of 140.
- Likely due to ADH release s/p surgery, anesthesia, pain response
- Significantly improved to 130s following IVF since completed.
# s/p L SHARAN 10/29/24
- Stable. no pain
- Hip X-ray appreciated no acute abn's, left hip prosthetic in expected location
- Continue post-op care including ASA, PT
- Continue bowel regimen.
- Orthopedic eval appreciated WBAT LLE w walker, total hip precautions
# Rheumatoid Arthritis
- Chronic Steroid Dependence
- stress dose steroids Hydrocortisone tapered to 20 mg IV Q12H (keep this dose now which is equivalent to 5 mg prednisone twice daily)
- Eventual taper back to home dose prednisone 5mg BID when able to tolerate PO
# Hypertension
- Home metoprolol resumed with holding parameters
- Amlodipine 5 mg daily resumed with holding parameters SBP<120, Restarted lisinopril and Hold HCTz
# Hypothyroidism
- Stable. Continue T4 supplementation.
# Insomnia
- Low dose Trazodone started, no significant improvement noted however, since discontinued
- Monitor for now, sleep issues is largely due to position restrictions d/t hip precautions and hiatal hernia,
# DVT Prophylaxis: SCDs / Lovenox (plan to return to ASA DVT ppx on discharge if within 28 days of orthopedic procedure)
# Code Status: DNR
D/W rn at bed side
Anticipated Discharge: 24 - 48 hours
Subjective/Interval History
-
Date of Service: November 07, 2024
Objective Data
-
Labs:
Laboratory Results
11/07/24
05:44
WBC 18.8 H
Hgb 9.9 L
Hct 29.1 L
Plt Count 326
Sodium 134 L
Potassium 3.5
Chloride 101
Carbon Dioxide 24
BUN 28 H
Creatinine 0.5 L
Glucose 86
Calcium 8.9
Vital Signs:
Vital Signs
Temp Pulse Resp BP Pulse Ox
98.5 F 77 22 143/89 90
11/07/24 07:32 11/07/24 07:32 11/07/24 07:32 11/07/24 07:32 11/07/24 07:32
I&O
11/06/24 11/07/24 11/08/24
06:59 06:59 06:59
Intake Total 2119
Balance 2119
[2024-11-07] MEDS: CELEBREX PO ×2 (09:39→22:11)
[2024-11-07] MEDS: FLORASTOR PO ×2 (09:40→22:11)
[2024-11-07] MEDS: NSS (PRESERVATIVE FREE) 10 ML IV ×2 (09:40→19:50)
[2024-11-07] MEDS: SOLU-CORTEF 25 MG IV (09:41)
[2024-11-07] MEDS: PROTONIX IV 40 MG IV ×2 (09:41→19:48)
[2024-11-07] MEDS: CRESTOR PO ×2 (09:45→22:12)
[2024-11-07] MEDS: NEUTRA-PHOS POWDER PACKET PO ×2 (09:50→14:04)
[2024-11-07] MEDS: ZESTRIL PO (09:50)
[2024-11-07 11:11] LABS: Troponin I < 0.012 ng/ml
[2024-11-07] MEDS: STERILE WATER FOR INJECTION 10 ML IV ×2 (11:32→21:03)
[2024-11-07] MEDS: MAXIPIME 2000 MG IV ×2 (11:32→21:03)
[2024-11-07 15:16] VITALS: BP 147/85
--- NOTE | 2024-11-07 16:08 | W.PN.PUL3 ---
Today's Communication / Plan
-
Eventual home oxygen assessment closer to discharge
Transition to baseline prednisone once able to take orals.
Complete 7 days of antibiotics
Will need radiographic follow-up and pulmonary follow-up upon discharge
Sign off
Assessment
-
74-year-old woman with past medical history noted admitted to the hospital few days after undergoing left knee arthroplasty. Patient started with a cough, progressive shortness of breath and significant generalized malaise and decreased appetite.
Found to be hypoxemic with significant bilateral infiltrates on CAT scan. We were consulted for evaluation 11/02/2024.
Impression:
Acute-hypoxemic respiratory failure
CT chest with severe bilateral groundglass opacities/large hiatal hernia filled with fluid, dilated esophagus..
Suspect aspiration pneumonia - likely intra-/deep-operatively related
11/02/2024 patient has a very large hiatal hernia/stomach projects over the left pulmonary field.
Negative COVID/negative influenza.
Status post left total knee arthroplasty 10/29/2024
Anemia: Likely postoperative blood loss
Mild hyponatremia - now resolved
Chronic prednisone use (RA): Random cortisol 15.7
Conditions present prior admission:
Hypertension
Hypothyroidism
Rheumatoid arthritis
Restless leg syndrome
Left total hip arthroplasty 10/29/2024
History of appendectomy
History of right elbow surgery
Former smoker in the distant past
Assessment and plan:
-
Vomiting/diarrhea x 2-suspected viral
Chest x-ray and nonobstructive bowel pattern.
Primary team treating as norovirus.
At this time, patient is improved, oxygen requirement improved, down to 2-3 L-significantly improved. Down from high flow oxygen.
-
Chest x-ray 11/04 shows bilateral interstitial changes and large hiatal hernia
Clinical picture and timing suggest aspiration event during surgery.
She also does report posttussive vomiting - now resolved
Suspect acute lung injury post aspiration
Patient states that she was not aware of her large hiatal hernia.
-
Agree with current antibiotics cefepime/IV metronidazole-complete total of 7 days, if patient to be discharged may transition to Augmentin.
Allergy to penicillin noted
Obtain sputum culture if patient can produce a decent sample-pending.
Afebrile. Leukocytosis likely reactive, steroids.
Eventual follow-up chest x-ray in 4 to 6 weeks
-
Aspiration precautions
Briefly NG tube was in place now discontinued. Abdomen is soft. No vomiting, although she does endorse occasional heartburn
Avoid narcotics
PPI per primary team.
-
Continue oxygen supplementation to maintain pulse ox above 90%. Currently on 2 L.
Previously on high flow oxygen 95%, 55 L/min and her pulse ox was 96% on 11/02/2024 at 10:30 AM.
Encourage incentive spirometry.
-
Decrease stress dose steroids as she continues to clinically improve, with eventual resumption of her home prednisone dose of 10 mg BID
-
For secretion clearance okay to use nebulizers as needed patient does not have bronchospasm.
Incentive spirometer encouraged.
Antitussives
-
DVT prophylaxis: LMWH
-
DNR status noted
-
From the pulmonary perspective no additional recommendations at this point. She seems to be improving
Will defer antibiotics to primary team to complete 7 days
Home oxygen assessment closer to discharge
Information for follow-up will be left in the chart

Data reviewed:
-
CT angiogram of the chest 11/01/2024:
There is no pulmonary embolism.
There is no aortic dissection.
There is no pneumothorax.
There are no abnormal pleural or parenchymal masses.
There are tiny bilateral pleural effusions.
There is severe predominantly central bilateral groundglass opacities in all lobes concerning for developing pneumonia. Interstitial lung disease cannot be excluded.
The mediastinum is normal.
There is no hilar or mediastinal lymphadenopathy.
There is no axillary lymphadenopathy.
There is a large hiatal hernia. Almost the entire stomach is within the thorax. The esophagus is distended and with a an air-fluid level.
The osseous structures show mild degenerative disease. There are old left-sided rib fractures.
Total time spent today was 36 minutes for this encounter. Time includes reviewing laboratory test/imaging results, reviewing pertinent medical records, obtaining and reviewing medical history, performing an appropriate exam, ordering medications,
tests and procedures. Time also includes documentation of this encounter, coordinating patient care and communicating with other healthcare professionals. Total time does not include separately billed tests performed on this date of service.
Subjective Data
-
Date of Service:
Date of Service: November 07, 2024
Chief Complaint: Pulmonary Follow Up
Objective Data
Data Reviewed
Vital Signs / I&O / Oxygen:
Vital Signs
Temp Pulse Resp BP Pulse Ox
98.5 F 77 22 143/89 90
11/07/24 07:32 11/07/24 07:32 11/07/24 07:32 11/07/24 07:32 11/07/24 07:32
Intake and Output
11/06/24 11/07/24 11/08/24
06:59 06:59 06:59
Intake Total 2119
Balance 2119
SaO2 90
Nasal Cannula flow liters per 3
minute
Physical Exam
General: Respiratory Distress (n), Comfortable, Chills (n) and Sweats (n)
HEENT: Normocephalic and Anicteric
Cardiovascular: S1-S2, Murmur (n), Rub (n) and Peripheral Edema (n)
Respiratory: Wheeze (n), Crackles (Bibasilar), Rhonchi (n) and Non-Labored Respirations
GI: Soft, Non Distended, Non Tender and Normal Bowel Sounds
Neurology: AO x 3 and Tremors (n)
Skin: Warm, Dry, Cyanosis (n) and Jaundice (n)
Labs/Micro/Reports
Lab Data
11/07/24 05:44
11/07/24 05:44
Microbiology
11/01/24 19:08 Blood/Venous Blood Culture - Final
No Growth - Final Report
11/01/24 19:08 Blood/Venous Blood Culture - Final
No Growth - Final Report
[2024-11-07] MEDS: LOVENOX 40 MG SC (18:19)
[2024-11-07] MEDS: MAGNESIUM SULFATE 102 GRAMS IV (18:19)
[2024-11-07] MEDS: SOLU-CORTEF 20 MG IV (19:50)
[2024-11-07] MEDS: NORVASC PO (22:12)
[2024-11-07] MEDS: NEURONTIN PO (22:12)
[2024-11-07] MEDS: TOPROL XL PO (22:12)
[2024-11-07 23:00] VITALS: BP 128/78
[2024-11-08] MEDS: SYNTHROID 125 MCG PO (02:38)
[2024-11-08] MEDS: TESSALON PERLES 200 MG PO (02:38)
[2024-11-08] MEDS: ZOFRAN 4 MG IV (02:41)
[2024-11-08] MEDS: FLAGYL 500 MG 100 IV ×3 (05:33→22:09)
[2024-11-08 06:00] VITALS: BMI 20.2
[2024-11-08 06:36] LABS: Hemoglobin 9.4 g/dL (12.0-16.0); Mean Corp Hgb Conc. 33.6 g/dL (33.0-37.0); Mean Corpuscular Hgb 32.1 pg (27.0-31.0); Mean Corpuscular Volume 95.6 fL (81.0-99.0); Mean Platelet Volume 9.8 fL (7.4-10.4); Platelet Count 261 10^3/uL (130-400); Red Blood Cell Count 2.93 10^6/uL (4.20-5.40); Red Cell Dist. Width 13.9 % (11.5-14.5); White Blood Cell Count 20.2 10^3/uL (4.8-10.8)
[2024-11-08 06:53] LABS: Blood Urea Nitrogen 35 mg/dl (7-17); Calcium 8.4 mg/dl (8.4-10.2); Carbon Dioxide 22 mmol/L (22-30); Chloride 101 mmol/L (98-107); Estimated Creatinine Clearance 78 ml/min; Glucose 78 mg/dl (70-99); Magnesium 1.8 mg/dl (1.6-2.3); Phosphorus 3.4 mg/dl (2.5-4.5); Potassium 3.5 mmol/L (3.5-5.1); Sodium 134 mmol/L (135-145); eGFR > 60.00
[2024-11-08 07:26] VITALS: BP 138/78
[2024-11-08] MEDS: FLORASTOR 250 MG PO ×2 (08:15→19:53)
[2024-11-08] MEDS: COLACE PO ×2 (08:16→19:53)
[2024-11-08] MEDS: SENOKOT PO ×2 (08:16→19:54)
[2024-11-08] MEDS: CELEBREX 100 MG PO ×2 (08:16→19:53)
[2024-11-08] MEDS: MUCINEX 600 MG PO ×2 (08:16→19:53)
[2024-11-08] MEDS: PROTONIX IV 40 MG IV ×2 (08:16→19:54)
[2024-11-08] MEDS: SOLU-CORTEF 20 MG IV ×2 (08:17→19:54)
[2024-11-08] MEDS: STERILE WATER FOR INJECTION 10 ML IV ×2 (08:17→22:10)
[2024-11-08] MEDS: NSS (PRESERVATIVE FREE) 10 ML IV ×2 (08:17→19:54)
[2024-11-08] MEDS: MAXIPIME 2000 MG IV ×2 (08:18→22:10)
[2024-11-08] MEDS: ZESTRIL 10 MG PO (08:36)
--- NOTE | 2024-11-08 10:06 | PN.CDI ---
CDI
- -
CDI:
Physician Documentation Request
Admit Date: 11/01/24 20:39
Dear Doctor ,
Please review the following and provide your response in the progress notes.
Clinical Indicators:
Pt admitted with sepsis 2/2 aspiration Pneumonia
Documented per pulmonology notes 11/03-11/07 , ' Anemia: Likely postoperative blood loss...'
Per previous visit [facility]GB 10/01 12.8
11/01/24 11/04/24 11/08/24
17:33 05:16 06:16
Hgb 11.5 L 9.7 L 9.4 L
Clarify which of the following accurately represents the acuity of the ( Anemia ).
Acute blood loss anemia
Subacute Bloodloss Anemia
Other ( please specify)
Use of terms such as suspected, likely, concern for, or probable (associated with a specific diagnosis that is being evaluated, monitored, or treated as if it exists) are acceptable and can be coded in the inpatient setting, when documented at the
time of discharge.
Thank you,
Hoda Mcnair RN
CDI Specialist
[place] [facility]
Please use your independent medical judgment in providing your response.
--- NOTE | 2024-11-08 14:20 | CM ---
Chart reviewed for d/c planning.
Pt cont to need SNF. Pt and family identified [facility]. Per [facility], poss will have available bed tomorrow
Per hospitalist, pt may need an additional day, poss looking at a weekend d/c
CM updated [facility], may have a bed on Tuesday, will keep CM posted.
Updated pt's son via phone. Son is asking for a call from the doctor. TT regarding this.
Plan: [facility] if bed is available on day of d/c
--- NOTE | 2024-11-08 14:45 | W.PN.HOSP.TC ---
Today's Communication/Plan
-
Continue antibiotics
Wean oxygen as tolerated
Encourage out of bed and incentive spirometry
Assessment / Plan
Assessment / Plan
Patient is a 74F with PMH significant for RA, HTN and recent L SHARAN who presented w cough and SOB.
CVS: S1-S2 normal
Chest: few rales
Abdomen: Soft, NT / Bowel sounds present
Extremities: No edema, normal pulses
Left hip site looks OK
# Vomiting and 2 episodes of diarrhea
-Lab has kits for Noro virus- will add a test
-Supportive care and symptomatic treatment
-X-ray without any obstruction
# Multifocal Pneumonia, likely aspiration pneumonia
Acute Hypoxemic Respiratory Failure secondary to the above
Sepsis secondary to the above
COVID / Flu negative in the ED.
IV abx with cefepime and Flagyl given PCN allergy.
Pureed diet as per speech
Chest PT, nebs, IS,
Wean oxygen as tolerated
Possible aspiration during vomiting
# Hiatal Hernia / GERD
- Suspected aspiration component given multifocal infiltrates and large hiatal hernia / esophageal air-fluid level noted on CT.
- NG placed for decompression in the ED, since discontinued with resolution nausea and start pureed diet as above (Abd X-ray also noted tube possibly in LLL bronchus vs hiatal hernia)
- IV PPI.
- Speech eval appreciated cleared for pureed diet
- Surgery eval appreciated outpt follow up for EGD and eventual repair
# Anemia-PO iron when able to take
# Hypokalemia-replaced
# Hypophosphatemia-replace
# Hyponatremia resolved
- Na - 125 down from pre-op value of 140.
- Likely due to ADH release s/p surgery, anesthesia, pain response
- Significantly improved to 130s following IVF since completed.
# s/p L SHARAN 10/29/24
- Stable. no pain
- Hip X-ray appreciated no acute abn's, left hip prosthetic in expected location
- Continue post-op care including ASA, PT
- Continue bowel regimen.
- Orthopedic eval appreciated WBAT LLE w walker, total hip precautions
# Rheumatoid Arthritis
- Chronic Steroid Dependence
- stress dose steroids Hydrocortisone tapered to 20 mg IV Q12H (keep this dose now which is equivalent to 5 mg prednisone twice daily)
- Eventual taper back to home dose prednisone 5mg BID when able to tolerate PO
# Hypertension
- Home metoprolol resumed with holding parameters
- Amlodipine 5 mg daily resumed with holding parameters SBP<120, Restarted lisinopril and Hold HCTz
# Hypothyroidism
- Stable. Continue T4 supplementation.
# Insomnia
- Low dose Trazodone started, no significant improvement noted however, since discontinued
- Monitor for now, sleep issues is largely due to position restrictions d/t hip precautions and hiatal hernia,
# DVT Prophylaxis: SCDs / Lovenox (plan to return to ASA DVT ppx on discharge if within 28 days of orthopedic procedure)
# Code Status: DNR
D/W rn at bed side
D/W Case management
Spoke to patient's grandson and updated
Anticipated Discharge: 24 - 48 hours
Subjective/Interval History
-
Date of Service: November 08, 2024
Objective Data
-
Labs:
Laboratory Results
11/08/24
06:16
WBC 20.2 H
Hgb 9.4 L
Hct 28.0 L
Plt Count 261
Sodium 134 L
Potassium 3.5
Chloride 101
Carbon Dioxide 22
BUN 35 H
Creatinine 0.6
Glucose 78
Calcium 8.4
Vital Signs:
Vital Signs
Temp Pulse Resp BP Pulse Ox
97.9 F 70 18 138/78 93
11/08/24 07:26 11/08/24 07:26 11/08/24 07:26 11/08/24 07:26 11/08/24 07:26
I&O
11/07/24 11/08/24 11/09/24
06:59 06:59 06:59
Intake Total 1999 880 / 880
Balance 1999 880 / 880
[2024-11-08 15:00] VITALS: PULSE 85; O2SAT 91
[2024-11-08 15:05] VITALS: BP 133/101
[2024-11-08] MEDS: DUONEB 3 ML INH (15:35)
[2024-11-08] MEDS: LOVENOX 40 MG SC (17:14)
[2024-11-08] MEDS: ROXICODONE 5 MG PO (18:36)
[2024-11-08 22:08] VITALS: BP 128/83
[2024-11-08] MEDS: CRESTOR 20 MG PO (22:09)
[2024-11-08] MEDS: NEURONTIN 100 MG PO (22:09)
[2024-11-08] MEDS: TOPROL XL 50 MG PO (22:09)
[2024-11-08] MEDS: NORVASC 5 MG PO (22:10)
[2024-11-08 23:24] VITALS: BP 139/78
[2024-11-09] MEDS: SYNTHROID 125 MCG PO (05:40)
[2024-11-09] MEDS: FLAGYL 500 MG 100 IV ×3 (05:40→21:37)
[2024-11-09 05:52] VITALS: BMI 20.8
[2024-11-09 07:34] VITALS: BP 140/86
[2024-11-09 08:13] VITALS: BP 140/86; BP 145/90; PULSE 88; PULSE 92
[2024-11-09] MEDS: CELEBREX 100 MG PO ×2 (08:22→21:29)
[2024-11-09] MEDS: ZESTRIL 10 MG PO (08:22)
[2024-11-09] MEDS: MUCINEX 600 MG PO ×2 (08:22→21:31)
[2024-11-09] MEDS: COLACE PO ×2 (08:36→21:30)
[2024-11-09] MEDS: SENOKOT PO ×2 (08:36→21:31)
[2024-11-09] MEDS: FLORASTOR 250 MG PO ×2 (08:36→21:31)
[2024-11-09 08:39] LABS: Hematocrit 28.7 % (37.0-47.0); Hemoglobin 9.4 g/dL (12.0-16.0); Mean Corp Hgb Conc. 32.8 g/dL (33.0-37.0); Mean Corpuscular Hgb 31.5 pg (27.0-31.0); Mean Corpuscular Volume 96.3 fL (81.0-99.0); Mean Platelet Volume 10.3 fL (7.4-10.4); Platelet Count 235 10^3/uL (130-400); Red Blood Cell Count 2.98 10^6/uL (4.20-5.40); Red Cell Dist. Width 14.1 % (11.5-14.5); White Blood Cell Count 18.2 10^3/uL (4.8-10.8)
[2024-11-09] MEDS: NSS (PRESERVATIVE FREE) 10 ML IV ×2 (08:39→21:42)
[2024-11-09] MEDS: PROTONIX IV 40 MG IV ×2 (08:40→21:37)
[2024-11-09] MEDS: SOLU-CORTEF 20 MG IV ×2 (08:43→21:32)
[2024-11-09] MEDS: STERILE WATER FOR INJECTION 10 ML IV ×2 (09:32→21:38)
[2024-11-09] MEDS: MAXIPIME 2000 MG IV ×2 (09:33→21:39)
[2024-11-09 09:56] LABS: Blood Urea Nitrogen 24 mg/dl (7-17); Calcium 8.1 mg/dl (8.4-10.2); Carbon Dioxide 22 mmol/L (22-30); Chloride 101 mmol/L (98-107); Estimated Creatinine Clearance 80 ml/min; Glucose 85 mg/dl (70-99); Magnesium 1.6 mg/dl (1.6-2.3); Phosphorus 2.7 mg/dl (2.5-4.5); Potassium 3.5 mmol/L (3.5-5.1); Sodium 135 mmol/L (135-145); eGFR > 60.00
[2024-11-09 11:38] VITALS: PULSE 95; O2SAT 91
[2024-11-09 12:00] VITALS: PULSE 95; O2SAT 91
[2024-11-09 15:17] VITALS: BP 126/78
--- NOTE | 2024-11-09 15:24 | W.PN.HOSP.TC ---
Today's Communication/Plan
-
Continue to wean oxygen as tolerated
Add Acapella and vest therapy
Continue antibiotics
Aspiration precautions
Encourage out of bed as patient prefers to mostly stay in bed which is not helping her situation.
Assessment / Plan
Assessment / Plan
Patient is a 74F with PMH significant for RA, HTN and recent L SHARAN who presented w cough and SOB.
CVS: S1-S2 normal
Chest: few rales bilaterally
Abdomen: Soft, NT / Bowel sounds present
Extremities: No edema, normal pulses
Left hip site looks OK
# Vomiting and 2 episodes of diarrhea
-Vomiting and diarrhea resolved
# Multifocal Pneumonia, likely aspiration pneumonia
Acute Hypoxemic Respiratory Failure secondary to the above
Sepsis secondary to the above
COVID / Flu negative in the ED.
IV abx with cefepime and Flagyl given PCN allergy.
Pureed diet as per speech
Wean oxygen as tolerated
Possible aspiration during vomiting
Added Acapella and vest therapy
# Hiatal Hernia / GERD
- Suspected aspiration component given multifocal infiltrates and large hiatal hernia / esophageal air-fluid level noted on CT.
- NG placed for decompression in the ED, since discontinued with resolution nausea and start pureed diet as above (Abd X-ray also noted tube possibly in LLL bronchus vs hiatal hernia)
- IV PPI.
- Speech eval appreciated cleared for pureed diet continue
- Surgery eval appreciated outpt follow up for EGD and eventual repair
# Anemia-PO iron when able to take
# Hypokalemia-replaced
# Hypophosphatemia-replace
# Hyponatremia resolved
- Na - 125 down from pre-op value of 140.
- Likely due to ADH release s/p surgery, anesthesia, pain response
- Significantly improved to 130s following IVF since completed.
# s/p L SHARAN 10/29/24
- Stable. no pain
- Hip X-ray appreciated no acute abn's, left hip prosthetic in expected location
- Continue post-op care including ASA, PT
- Continue bowel regimen.
- Orthopedic eval appreciated WBAT LLE w walker, total hip precautions
# Rheumatoid Arthritis
- Chronic Steroid Dependence
- stress dose steroids Hydrocortisone tapered to 20 mg IV Q12H (keep this dose now which is equivalent to 5 mg prednisone twice daily)
- Eventual taper back to home dose prednisone 5mg BID when able to tolerate PO
# Hypertension
- Home metoprolol resumed with holding parameters
- Amlodipine 5 mg daily resumed with holding parameters SBP<120, Restarted lisinopril and Hold HCTz
# Hypothyroidism
- Stable. Continue T4 supplementation.
# Insomnia
- Low dose Trazodone started, no significant improvement noted however, since discontinued
- Monitor for now, sleep issues is largely due to position restrictions d/t hip precautions and hiatal hernia,
# DVT Prophylaxis: SCDs / Lovenox (plan to return to ASA DVT ppx on discharge if within 28 days of orthopedic procedure)
# Code Status: DNR
D/W rn at bed side
D/W Case management
Spoke to patient's grandson and updated Yesterday
Anticipated Discharge: 24 - 48 hours
Subjective/Interval History
-
Date of Service: November 09, 2024
Objective Data
-
Labs:
Laboratory Results
11/09/24
06:19
WBC 18.2 H
Hgb 9.4 L
Hct 28.7 L
Plt Count 235
Sodium 135
Potassium 3.5
Chloride 101
Carbon Dioxide 22
BUN 24 H
Creatinine 0.5 L
Glucose 85
Calcium 8.1 L
Vital Signs:
Vital Signs
Temp Pulse Resp BP Pulse Ox
98.5 F 95 20 126/78 94
11/09/24 15:17 11/09/24 15:17 11/09/24 15:17 11/09/24 15:17 11/09/24 15:17
I&O
11/08/24 11/09/24 11/10/24
06:59 06:59 06:59
Intake Total 880 / 880 1160 / 1160
Balance 880 / 880 1160 / 1160
[2024-11-09] MEDS: LOVENOX 40 MG SC (17:39)
--- NOTE | 2024-11-09 18:57 | PTCARENOTE ---
Addendum entered by Nicolette Townsend RN 11/09/24 19:02:
Provided patient with sterile cup for when she is able to provide a sputum sample.
Original Note:
Patient reported feeling chilled and her body was feeling 'stressed.' Vital signs were obtained. Temp 98.3, HR 88, Resp rate 24, BP 132/75, Pulse ox 93% on 5 liters of Oxygen. Patient accepted a warm blanket and appeared more comfortable. After
about 5-10 mins, patient reported still feeling chilled. Informed Shaista HAILE who is receiving report on this patient.
[2024-11-09] MEDS: CRESTOR 20 MG PO (21:36)
[2024-11-09] MEDS: NEURONTIN 100 MG PO (21:37)
[2024-11-09] MEDS: NORVASC 5 MG PO (21:40)
[2024-11-09] MEDS: TOPROL XL 50 MG PO (21:40)
[2024-11-09 22:48] VITALS: BP 155/96
[2024-11-10 04:46] VITALS: BMI 20.3
[2024-11-10] MEDS: FLAGYL 500 MG 100 IV ×3 (05:13→21:01)
[2024-11-10] MEDS: SYNTHROID 125 MCG PO (05:14)
[2024-11-10] MEDS: FLUSH (NSS) 2 FLUSH IV ×2 (05:18→21:27)
[2024-11-10 07:05] VITALS: BP 131/77
[2024-11-10 08:35] LABS: Hematocrit 28.8 % (37.0-47.0); Hemoglobin 9.6 g/dL (12.0-16.0); Mean Corp Hgb Conc. 33.3 g/dL (33.0-37.0); Mean Corpuscular Hgb 31.9 pg (27.0-31.0); Mean Corpuscular Volume 95.7 fL (81.0-99.0); Mean Platelet Volume 10.5 fL (7.4-10.4); Platelet Count 228 10^3/uL (130-400); Red Blood Cell Count 3.01 10^6/uL (4.20-5.40); Red Cell Dist. Width 13.9 % (11.5-14.5); White Blood Cell Count 17.8 10^3/uL (4.8-10.8)
[2024-11-10 09:00] LABS: Blood Urea Nitrogen 18 mg/dl (7-17); Calcium 7.8 mg/dl (8.4-10.2); Carbon Dioxide 24 mmol/L (22-30); Chloride 101 mmol/L (98-107); Estimated Creatinine Clearance 79 ml/min; Glucose 96 mg/dl (70-99); Potassium 3.4 mmol/L (3.5-5.1); Sodium 136 mmol/L (135-145); eGFR > 60.00
[2024-11-10] MEDS: FLORASTOR 250 MG PO ×2 (10:11→20:56)
[2024-11-10] MEDS: ZESTRIL 10 MG PO (10:11)
[2024-11-10] MEDS: KCL 20 MEQ PO (10:11)
[2024-11-10] MEDS: SENOKOT 17.2 MG PO ×2 (10:12→20:58)
[2024-11-10] MEDS: CELEBREX 100 MG PO ×2 (10:12→20:55)
[2024-11-10] MEDS: COLACE 100 MG PO ×2 (10:13→20:56)
[2024-11-10] MEDS: PROTONIX IV 40 MG IV ×2 (10:13→20:58)
[2024-11-10] MEDS: MUCINEX 600 MG PO ×2 (10:13→20:56)
[2024-11-10] MEDS: FEOSOL 325 MG PO (10:13)
[2024-11-10] MEDS: NSS (PRESERVATIVE FREE) 10 ML IV ×2 (10:13→20:57)
[2024-11-10] MEDS: SOLU-CORTEF 20 MG IV ×2 (10:14→20:59)
[2024-11-10] MEDS: STERILE WATER FOR INJECTION 10 ML IV ×2 (10:15→21:02)
[2024-11-10] MEDS: MAXIPIME 2000 MG IV ×2 (10:15→21:01)
[2024-11-10 15:00] VITALS: BP 119/75
[2024-11-10] MEDS: LASIX 20 MG IV (15:20)
[2024-11-10] MEDS: KCL 40 MEQ PO (15:20)
[2024-11-10] MEDS: LOVENOX 40 MG SC (17:18)
--- NOTE | 2024-11-10 18:02 | W.PN.HOSP.TC ---
Today's Communication/Plan
-
Vest
Acapella
Assessment / Plan
Assessment / Plan
Patient is a 74F with PMH significant for RA, HTN and recent L SHARAN who presented w cough and SOB.
CVS: S1-S2 normal
Chest: few rales bilaterally
Abdomen: Soft, NT / Bowel sounds present
Extremities: No edema, normal pulses
Left hip site looks OK
# Vomiting and 2 episodes of diarrhea
-Vomiting and diarrhea resolved
# Multifocal Pneumonia, likely aspiration pneumonia
Acute Hypoxemic Respiratory Failure secondary to the above
Sepsis secondary to the above
COVID / Flu negative in the ED.
IV abx with cefepime and Flagyl given PCN allergy.
Pureed diet as per speech
Wean oxygen as tolerated
Possible aspiration during vomiting
Added Acapella and vest therapy
# Hiatal Hernia / GERD
- Suspected aspiration component given multifocal infiltrates and large hiatal hernia / esophageal air-fluid level noted on CT.
- NG placed for decompression in the ED, since discontinued with resolution nausea and start pureed diet as above (Abd X-ray also noted tube possibly in LLL bronchus vs hiatal hernia)
- IV PPI.
- Speech eval appreciated cleared for pureed diet continue
- Surgery eval appreciated outpt follow up for EGD and eventual repair
# Anemia-PO iron when able to take
# Hypokalemia-replaced
# Hypophosphatemia-replace
# Hyponatremia resolved
- Na - 125 down from pre-op value of 140.
- Likely due to ADH release s/p surgery, anesthesia, pain response
- Significantly improved to 130s following IVF since completed.
- Add one dose of lasix
# s/p L SHARAN 10/29/24
- Stable. no pain
- Hip X-ray appreciated no acute abn's, left hip prosthetic in expected location
- Continue post-op care including ASA, PT
- Continue bowel regimen.
- Orthopedic eval appreciated WBAT LLE w walker, total hip precautions
# Rheumatoid Arthritis
- Chronic Steroid Dependence
- stress dose steroids Hydrocortisone tapered to 20 mg IV Q12H (keep this dose now which is equivalent to 5 mg prednisone twice daily)
- Eventual taper back to home dose prednisone 5mg BID
# Hypertension
- Home metoprolol resumed with holding parameters
- Amlodipine 5 mg daily resumed with holding parameters SBP<120, Restarted lisinopril and Hold HCTz
# Hypothyroidism
- Stable. Continue T4 supplementation.
# Insomnia
- Low dose Trazodone started, no significant improvement noted however, since discontinued
- Monitor for now, sleep issues is largely due to position restrictions d/t hip precautions and hiatal hernia,
# DVT Prophylaxis: SCDs / Lovenox (plan to return to ASA DVT ppx on discharge if within 28 days of orthopedic procedure)
# Code Status: DNR
D/W rn at bed side
D/W Grand son and updated.
Anticipated Discharge: 24 - 48 hours
Subjective/Interval History
-
Date of Service: November 10, 2024
Objective Data
-
Labs:
Laboratory Results
11/10/24
06:42
WBC 17.8 H
Hgb 9.6 L
Hct 28.8 L
Plt Count 228
Sodium 136
Potassium 3.4 L
Chloride 101
Carbon Dioxide 24
BUN 18 H
Creatinine 0.5 L
Glucose 96
Calcium 7.8 L
Vital Signs:
Vital Signs
Temp Pulse Resp BP Pulse Ox
98.8 F 79 20 119/75 93
11/10/24 15:00 11/10/24 15:00 11/10/24 15:00 11/10/24 15:00 11/10/24 15:00
I&O
11/09/24 11/10/24 11/11/24
06:59 06:59 06:59
Intake Total 1160 / 1160 644 / 644
Output Total 1050 / 1050
Balance 1160 / 1160 -406 / -406
[2024-11-10 19:00] VITALS: BP 110/67
[2024-11-10] MEDS: CRESTOR 20 MG PO (21:01)
[2024-11-10] MEDS: TOPROL XL 50 MG PO (21:02)
[2024-11-10] MEDS: NEURONTIN 100 MG PO (21:03)
[2024-11-10] MEDS: NORVASC PO (21:04)
[2024-11-10] MEDS: MORPHINE SULFATE 2 MG IV (21:25)
[2024-11-10 23:00] VITALS: BP 124/73
[2024-11-11] MEDS: SYNTHROID 125 MCG PO (05:16)
[2024-11-11] MEDS: FLAGYL 500 MG 100 IV ×3 (05:16→22:42)
[2024-11-11] MEDS: FLUSH (NSS) 2 FLUSH IV (05:16)
[2024-11-11 06:00] VITALS: BMI 20.2
[2024-11-11 07:58] VITALS: BP 129/79
[2024-11-11 08:36] LABS: Blood Urea Nitrogen 20 mg/dl (7-17); Calcium 7.8 mg/dl (8.4-10.2); Carbon Dioxide 29 mmol/L (22-30); Chloride 99 mmol/L (98-107); Estimated Creatinine Clearance 78 ml/min; Glucose 97 mg/dl (70-99); Potassium 3.5 mmol/L (3.5-5.1); Sodium 138 mmol/L (135-145); eGFR > 60.00
[2024-11-11] MEDS: LIDOCAINE 4% PATCH 2 PATCH TOPICAL (09:47)
[2024-11-11] MEDS: CELEBREX 100 MG PO ×2 (09:51→20:54)
[2024-11-11] MEDS: COLACE 100 MG PO ×2 (09:52→20:53)
[2024-11-11] MEDS: MUCINEX 600 MG PO ×2 (09:52→20:54)
[2024-11-11] MEDS: SENOKOT 17.2 MG PO ×2 (09:53→20:54)
[2024-11-11] MEDS: ZESTRIL 10 MG PO (09:53)
[2024-11-11] MEDS: FEOSOL 325 MG PO (09:53)
[2024-11-11] MEDS: NSS (PRESERVATIVE FREE) 10 ML IV ×2 (09:54→20:54)
[2024-11-11] MEDS: PROTONIX IV 40 MG IV ×2 (09:54→20:54)
[2024-11-11] MEDS: SOLU-CORTEF 20 MG IV ×2 (09:55→20:54)
[2024-11-11] MEDS: LASIX 20 MG IV (10:56)
[2024-11-11] MEDS: KCL 40 MEQ PO (10:56)
[2024-11-11] MEDS: FLORASTOR 250 MG PO ×2 (10:57→20:54)
[2024-11-11] MEDS: STERILE WATER FOR INJECTION 10 ML IV ×2 (12:38→23:33)
[2024-11-11] MEDS: MAXIPIME 2000 MG IV ×2 (12:38→23:33)
[2024-11-11] MEDS: TYLENOL 650 MG PO ×2 (12:58→17:24)
[2024-11-11] MEDS: ROXICODONE 5 MG PO ×2 (12:58→20:53)
[2024-11-11 15:01] VITALS: BP 125/68
--- NOTE | 2024-11-11 16:25 | W.PN.HOSP.TC ---
Today's Communication/Plan
-
CT chest
Álvarez
Lasix given this am
Wean O2
Assessment / Plan
Assessment / Plan
Patient is a 74F with PMH significant for RA, HTN and recent L SHARAN who presented w cough and SOB.
CVS: S1-S2 normal
Chest: few rales bilaterally
Abdomen: Soft, NT / Bowel sounds present
Extremities: No edema, normal pulses
Left hip site looks OK
# Multifocal Pneumonia, likely aspiration pneumonia
Acute Hypoxemic Respiratory Failure secondary to the above
Sepsis secondary to the above
COVID / Flu negative in the ED.
IV abx with cefepime and Flagyl given PCN allergy.
Pureed diet as per speech
Wean oxygen as tolerated
Possible aspiration during vomiting
Added Acapella and vest therapy
With Hypoxia not improving with Lasix will get a CT PE study to rule out Thromboembolic disease.
# Vomiting and 2 episodes of diarrhea
-Vomiting and diarrhea resolved
# Urinary retention- WILL PLACE A ÁLVAREZ NOW
# Hiatal Hernia / GERD
- Suspected aspiration component given multifocal infiltrates and large hiatal hernia / esophageal air-fluid level noted on CT.
- NG placed for decompression in the ED, since discontinued with resolution nausea and start pureed diet as above (Abd X-ray also noted tube possibly in LLL bronchus vs hiatal hernia)
- IV PPI.
- Speech eval appreciated cleared for pureed diet continue
- Surgery eval appreciated outpt follow up for EGD and eventual repair
# Anemia-PO iron when able to take
# Hypokalemia-replaced
# Hypophosphatemia-replace
# Hyponatremia resolved
- Na - 125 down from pre-op value of 140.
- Likely due to ADH release s/p surgery, anesthesia, pain response
- Significantly improved to 130s following IVF since completed.
- Add one dose of lasix
# s/p L SHARAN 10/29/24
- Stable. no pain
- Hip X-ray appreciated no acute abn's, left hip prosthetic in expected location
- Continue post-op care including ASA, PT
- Continue bowel regimen.
- Orthopedic eval appreciated WBAT LLE w walker, total hip precautions
# Rheumatoid Arthritis
- Chronic Steroid Dependence
- stress dose steroids Hydrocortisone tapered to 20 mg IV Q12H (keep this dose now which is equivalent to 5 mg prednisone twice daily)
- Eventual taper back to home dose prednisone 5mg BID
# Hypertension
- Home metoprolol resumed with holding parameters
- Amlodipine 5 mg daily resumed with holding parameters SBP<120, Restarted lisinopril and Hold HCTz
# Hypothyroidism
- Stable. Continue T4 supplementation.
# Insomnia
- Low dose Trazodone started, no significant improvement noted however, since discontinued
- Monitor for now, sleep issues is largely due to position restrictions d/t hip precautions and hiatal hernia,
# DVT Prophylaxis: SCDs / Lovenox (plan to return to ASA DVT ppx on discharge if within 28 days of orthopedic procedure)
# Code Status: DNR
D/W rn at bed side
Anticipated Discharge: 24 - 48 hours
Subjective/Interval History
-
Date of Service: November 11, 2024
Objective Data
-
Labs:
Laboratory Results
11/11/24
06:02
Sodium 138
Potassium 3.5
Chloride 99
Carbon Dioxide 29
BUN 20 H
Creatinine 0.5 L
Glucose 97
Calcium 7.8 L
Vital Signs:
Vital Signs
Temp Pulse Resp BP Pulse Ox
98.1 F 75 18 125/68 96
11/11/24 15:01 11/11/24 15:01 11/11/24 15:01 11/11/24 15:01 11/11/24 15:01
I&O
11/10/24 11/11/24 11/12/24
06:59 06:59 06:59
Intake Total 644 / 644 1220 / 1220 / 100
Output Total 1050 / 1050 575 / 575
Balance -406 / -406 645 / 645 /
[2024-11-11] MEDS: LOVENOX 40 MG SC (17:24)
--- NOTE | 2024-11-11 21:35 | W.PN.UPDATE ---
Addendum entered and electronically signed by DANICA Rascon 11/11/24 22:27:
Spoke with patient Lawanda Garcia, reviewed results of CT scan and plan of care. Patient verbalized understanding and is in full agreement with plan. Also called and spoke with patient's contact, Jacob (Grandson), explained CT scan results and plan,
and he also verbalized understanding and is in agreement with plan.
Original Note:
Update Note
Progress Note Update
Results TT'd as Chest CT shows�
1). There is new peripheral right lower lobe pulmonary embolism with right heart strain
2). There has been significant worsening of bilateral multifocal pneumonia and small bilateral pleural effusions in the interval since the 11/01/2024 study
3). 14 cm hiatal hernia
Patient started on heparin gtt, PE/DVT protocol. Cardiology consulted (Dr. La) re: right heart strain. Pulmonology following. Continued IV antibiotics as ordered for PNA.Patient to be maintained on bedrest at this time. Patient transferred to
telemetry level of care.
[2024-11-11 23:00] VITALS: BP 129/69
[2024-11-11] MEDS: NORVASC 5 MG PO (23:29)
[2024-11-11] MEDS: NEURONTIN 100 MG PO (23:30)
[2024-11-11] MEDS: CRESTOR 20 MG PO (23:31)
[2024-11-11] MEDS: TOPROL XL 50 MG PO (23:31)
[2024-11-11] MEDS: HEPARIN 5000 UNITS IV (23:38)
[2024-11-11 23:49] LABS: Hematocrit 28.5 % (37.0-47.0); Hemoglobin 9.4 g/dL (12.0-16.0); Mean Corpuscular Hgb 31.9 pg (27.0-31.0); Mean Corpuscular Volume 96.6 fL (81.0-99.0); Mean Platelet Volume 10.6 fL (7.4-10.4); Platelet Count 277 10^3/uL (130-400); Red Blood Cell Count 2.95 10^6/uL (4.20-5.40); Red Cell Dist. Width 13.9 % (11.5-14.5); White Blood Cell Count 17.4 10^3/uL (4.8-10.8)
[2024-11-11] MEDS: HEPARIN 25000 UNITS/250 ML IV (23:56)
[2024-11-12 00:06] LABS: APTT 36.4 Sec (23.4-35.0)
[2024-11-12] MEDS: MORPHINE SULFATE 2 MG IV (00:51)
[2024-11-12] MEDS: SYNTHROID 125 MCG PO (05:47)
[2024-11-12] MEDS: FLAGYL 500 MG 100 IV (05:47)
[2024-11-12 06:00] VITALS: BMI 20.2
[2024-11-12 07:00] VITALS: BP 125/71
[2024-11-12 08:41] LABS: Hematocrit 29.9 % (37.0-47.0); Hemoglobin 9.7 g/dL (12.0-16.0); Mean Corp Hgb Conc. 32.4 g/dL (33.0-37.0); Mean Corpuscular Hgb 31.3 pg (27.0-31.0); Mean Corpuscular Volume 96.5 fL (81.0-99.0); Mean Platelet Volume 10.4 fL (7.4-10.4); Platelet Count 252 10^3/uL (130-400); Red Cell Dist. Width 14.1 % (11.5-14.5); White Blood Cell Count 14.1 10^3/uL (4.8-10.8)
[2024-11-12 09:33] LABS: APTT > 200 Sec (23.4-35.0)
--- NOTE | 2024-11-12 09:49 | CON.CAR ---
Consultation
Consultation Request
Date/Time Consultation Requested: 11/12/2024, 7am
Date/Time Consultation Performed: 11/12/2024, 8am
Requesting Provider: Lyle
Performing Provider: Oscar
Reason for Consultation: acute PE with right heart strain
Medical History
-
Chief Complaint: SOB
History of Present Illness:
74 yo female with PMH of HTN, hyperlipidemia, rheumatoid arthritis, hypothyroidism, recent left SHARAN 10/29/24 is admitted with SOB, cough, myalgia. Found to have PNA and also PE. We are consulted for acute right heart strain. There is no chest
pain.
Past Medical History
Past Medical History: HTN, Hypercholesterolemia, Hypothyroidism and Other (rheumatoid arthritis)
Past Surgical History: Appendectomy and Orthopedic (left SHARAN 10/29/24)
Social History
Tobacco: Non-Smoker
Family History
Family History: CAD (mother)
Allergies / Home Medications
Allergy/AdvReac Type Severity Reaction Status Date / Time
adhesive Allergy Rash Verified 10/29/24 07:30
amoxicillin [From Augmentin] Allergy Nausea / Verified 10/29/24 07:30
Vomiting
clavulanic acid Allergy Nausea / Verified 10/29/24 07:30
[From Augmentin] Vomiting
methotrexate Allergy Itching Verified 10/29/24 07:30
Sulfa (Sulfonamide Allergy Nausea / Verified 10/29/24 07:30
Antibiotics) Vomiting
�Medication �Instructions �Recorded �Confirmed �Type
amlodipine 5 mg tablet 5 mg PO HS Blood Pressure 10/23/24 11/01/24 History
gabapentin 100 mg capsule 100 mg PO HS Pain 10/23/24 11/01/24 History
levothyroxine 125 mcg tablet 125 mcg PO DAILY Thyroid 10/23/24 11/01/24 History
lisinopril 20 1 tab PO HS Blood Pressure 10/23/24 11/01/24 History
mg-hydrochlorothiazide 25 mg tablet
metoprolol succinate 50 mg 50 mg PO HS Blood Pressure 10/23/24 11/01/24 History
tablet,extended release 24 hr
omeprazole 20 mg capsule,delayed 20 mg PO DAILY GERD 10/23/24 11/01/24 History
release
rosuvastatin 20 mg tablet (Crestor) 20 mg PO DAILY High Cholesterol 10/23/24 11/01/24 History
tramadol 50 mg tablet 50 mg PO HS Pain 10/23/24 11/01/24 History
Saccharomyces boulardii 250 mg 250 mg PO BID #1 cap 10/29/24 11/01/24 Rx
capsule (Florastor)
aspirin 325 mg tablet 325 mg PO DAILY blood clot 10/29/24 11/01/24 Rx
prevention #1 tab
cefadroxil 500 mg capsule 500 mg PO BID infection prevention 10/29/24 11/01/24 Rx
#14 caps
docusate sodium 100 mg capsule 100 mg PO BID stool softner #1 cap 10/29/24 11/01/24 Rx
(Colace)
sennosides 8.6 mg tablet (Senokot) 17.2 mg (2 x 8.6 mg) PO BID 10/29/24 11/01/24 Rx
laxative #2 tabs
acetaminophen 650 mg 1,300 mg PO Q12H Pain 11/01/24 11/01/24 History
tablet,extended release (Tylenol 8
Hour)
celecoxib 100 mg capsule 100 mg PO BID INFLAMMATION 11/01/24 11/01/24 History
ondansetron 4 mg disintegrating 4 mg PO Q6HPRN PRN n/v 11/01/24 11/01/24 History
tablet
oxycodone 5 mg tablet 5 mg PO Q6HPRN PRN 1 tab moderate 11/01/24 11/01/24 History
pain, 2 tabs severe pain
prednisone 10 mg tablet 10 mg PO BID INFLAMMATION 11/01/24 11/01/24 History
Review of Systems
-
History Source: Patient
Constitutional: Fatigue
Respiratory: Cough and Trouble Breathing
Musculoskeletal: Joint Pain and Muscle Pain
Physical Exam
Vital Signs
Temp Pulse Resp BP Pulse Ox
98.5 F 83 20 125/71 94
11/12/24 07:00 11/12/24 07:00 11/12/24 07:00 11/12/24 07:00 11/12/24 07:00
Lab Results
11/12/24 07:31
Troponin I < 0.012 ng/ml 11/07/24 10:14
Sjh-J-Asgdsxsnruv Pept 3730 pg/ml 11/06/24 09:51
Physical Exam
General: Well Developed and Well Nourished
HEENT: Normocephalic and Anicteric
Respiratory: Crackles and Accessory Resp Muscle Use
Cardiac: S1/S2 (normal), Regular Rhythm, Murmur (none), Peripheral Edema (trace LE edema) and JVD (none)
Breast: Deferred by me
GI: Soft and Non Tender
Rectal: Deferred by Provider
Musculoskeletal: No Clubbing, No Cyanosis and Edema (trace LE edema)
Skin: Warm and Dry
Neuro: AO x 3
Psych: Calm
Impression / Plan
-
74 yo female with PMH of HTN, hyperlipidemia, rheumatoid arthritis, hypothyroidism, recent left SHARAN 10/29/24 is admitted with SOB, cough, myalgia. Found to have PNA and also PE. We are consulted for acute right heart strain.
# Acute PE
-recent left SHARAN 10/29/24
-right heart strain on CT
-echo today
-continue heparin drip (with monitoring of Hgb), and transition to OAC when stable
#PNA
-Abx per hospitalist
# PAC's
-frequent on EKG, no sxs
-cont Toprol XL
-monitor on tele for arrhythmia
# HTN
-chronic, stable
-continue lisinopril, amlodipine, Toprol XL
# Hyperlipidemia
-stable: continue statin
Data Reviewed
-
EKG: Tracing Personally Visualized and interpreted (SR, PAC's)
CT Scan: Report Reviewed by me (right lower lobe pulmonary embolism with right heart strain; significant worsening of bilateral multifocal pneumonia)
Labs: Labs Reviewed by me
[2024-11-12 10:10] LABS: Blood Urea Nitrogen 21 mg/dl (7-17); Calcium 7.9 mg/dl (8.4-10.2); Carbon Dioxide 24 mmol/L (22-30); Chloride 103 mmol/L (98-107); Estimated Creatinine Clearance 78 ml/min; Glucose 79 mg/dl (70-99); Magnesium 1.5 mg/dl (1.6-2.3); Potassium 3.5 mmol/L (3.5-5.1); Sodium 136 mmol/L (135-145); eGFR > 60.00
[2024-11-12] MEDS: ROXICODONE 5 MG PO (10:42)
[2024-11-12] MEDS: COLACE 100 MG PO ×2 (10:45→22:11)
[2024-11-12] MEDS: MUCINEX 600 MG PO ×2 (10:45→22:11)
[2024-11-12] MEDS: SENOKOT 17.2 MG PO ×2 (10:45→22:11)
[2024-11-12] MEDS: FEOSOL 325 MG PO (10:45)
[2024-11-12] MEDS: CELEBREX 100 MG PO ×2 (10:45→22:11)
[2024-11-12] MEDS: STERILE WATER FOR INJECTION 10 ML IV (10:46)
[2024-11-12] MEDS: FLORASTOR 250 MG PO ×2 (10:46→22:10)
[2024-11-12] MEDS: MAXIPIME 2000 MG IV (10:48)
[2024-11-12] MEDS: SOLU-CORTEF 20 MG IV ×2 (10:49→22:12)
[2024-11-12] MEDS: PROTONIX IV 40 MG IV ×2 (10:50→22:17)
[2024-11-12] MEDS: NSS (PRESERVATIVE FREE) 10 ML IV ×2 (10:50→22:10)
[2024-11-12] MEDS: ZESTRIL 10 MG PO (10:55)
[2024-11-12] MEDS: MAGNESIUM SULFATE 50 IV (12:48)
[2024-11-12] MEDS: LOVENOX 60 MG SC ×2 (12:49→22:23)
[2024-11-12] MEDS: MORPHINE SULFATE 1 MG IV (12:49)
[2024-11-12 13:15] LABS: APTT 123.8 Sec (23.4-35.0)
--- NOTE | 2024-11-12 13:54 | W.PN.HOSP.TC ---
Addendum entered and electronically signed by Abhilash Alvarenga MD 11/12/24 15:29:
Called grandson and spoke to DIL and updated.
Original Note:
Today's Communication/Plan
-
Continue Lovenox
Doxycycline
Vest therapy as long as pulmonary okay with it to be continued
Acapella
Mucinex
Case management to check pricing of Eliquis
Venous doppler
Assessment / Plan
Assessment / Plan
Patient is a 74F with PMH significant for RA, HTN and recent L SHARAN who presented w cough and SOB.
CVS: S1-S2 normal
Chest: few rales bilaterally
Abdomen: Soft, NT / Bowel sounds present
Extremities: No edema, normal pulses
Left hip site with mild serous drainage. No redness or tenderness. Will request orthopedics to reevaluate
ECHO- Left ventricle is small in size. . Normal left ventricular systolic function. Left ventricular ejection fraction is 60-65% by volumetric assessment. Normal regional wall motion. Normal left ventricular wall thickness. Diastolic
function indeterminate. Structurally normal aortic valve without significant stenosis and trace regurgitation. Trileaflet aortic valve. Aortic sclerosis without stenosis.
CT PE study-new peripheral right lower lobe PE with right heart strain. Worsening of bilateral multifocal pneumonia compared to 11/01/2024. 14 cm hiatal hernia
# Multifocal Pneumonia, likely aspiration pneumonia
Acute Hypoxemic Respiratory Failure secondary to the above
Sepsis secondary to the above
COVID / Flu negative in the ED.
Stop IV AB- Add Doxy
Pureed diet as per speech
Wean oxygen as tolerated
Possible aspiration during vomiting
Added Acapella and vest therapy
Echo noted-normal EF
CT was reviewed by me
Patient was weaned down to 3 L around 5 PM yesterday prior to the CT and starting her on anticoagulation. She remains on 3 L now.
Wean as tolerated
#Right lower lobe PE-Lovenox. Check venous Dopplers. Check navas of Eliquis
# Vomiting and 2 episodes of diarrhea-resolved
# Urinary retention-retention protocol. Aranda placed 11/11/2024
# Hiatal Hernia / GERD
- Suspected aspiration component given multifocal infiltrates and large hiatal hernia / esophageal air-fluid level noted on CT.
- NG placed for decompression in the ED, since discontinued with resolution nausea and start pureed diet as above (Abd X-ray also noted tube possibly in LLL bronchus vs hiatal hernia)
- IV PPI.
- Speech eval appreciated cleared for pureed diet continue
- Surgery eval appreciated outpt follow up for EGD and eventual repair
# Anemia-PO iron
# Hypokalemia-replaced
# Hypophosphatemia-replace
# Hyponatremia resolved
- Na - 125 down from pre-op value of 140.
- Likely due to ADH release s/p surgery, anesthesia, pain response
- Significantly improved to 130s following IVF since completed.
# s/p L SHARAN 10/29/24
- Hip X-ray appreciated no acute abn's, left hip prosthetic in expected location
- Continue post-op care including ASA, PT
- Orthopedic eval appreciated WBAT LLE w walker, total hip precautions
- Texted Ortho PA to take a look
# Rheumatoid Arthritis
- Chronic Steroid Dependence
- stress dose steroids Hydrocortisone tapered to 20 mg IV Q12H (keep this dose now which is equivalent to 5 mg prednisone twice daily)
- Eventual taper back to home dose prednisone 5mg BID
# Hypertension
- Home metoprolol resumed with holding parameters
- Amlodipine 5 mg daily resumed with holding parameters SBP<120, Restarted lisinopril and Hold HCTz
# Hypothyroidism
- Stable. Continue T4 supplementation.
# Insomnia
- Low dose Trazodone started, no significant improvement noted however, since discontinued
- Monitor for now, sleep issues is largely due to position restrictions d/t hip precautions and hiatal hernia,
# DVT Prophylaxis: Lovenox
# Code Status: DNR
D/W rn at bed side
D/W Pulm
Left a message for Maryan
Time more than 50 minutes
Anticipated Discharge: > 48 hours
Subjective/Interval History
-
Date of Service: November 12, 2024
Objective Data
-
Labs:
Laboratory Results
11/12/24 11/12/24 11/12/24
07:31 12:40 18:00
WBC 14.1 H
Hgb 9.7 L
Hct 29.9 L
Plt Count 252
APTT > 200 H* 123.8 H Pending
Sodium 136
Potassium 3.5
Chloride 103
Carbon Dioxide 24
BUN 21 H
Creatinine 0.5 L
Glucose 79
Calcium 7.9 L
Vital Signs:
Vital Signs
Temp Pulse Resp BP Pulse Ox
98.5 F 83 20 125/71 94
11/12/24 07:00 11/12/24 07:00 11/12/24 07:00 11/12/24 07:00 11/12/24 07:00
I&O
11/11/24 11/12/24 11/13/24
06:59 06:59 06:59
Intake Total 1220 / 1220 100 / 100
Output Total 575 / 575 1800 / 1800
Balance 645 / 645 -1700 / -1700
[2024-11-12 14:02] VITALS: BP 133/79; BP 140/80; PULSE 72; PULSE 75
[2024-11-12 15:24] VITALS: BP 111/75
--- NOTE | 2024-11-12 15:24 | W.PN.PUL.V3 ---
Today's Communication / Plan
-
Wean oxygen.
CT chest noted-Lovenox 60 mg every 12 hours initiated.
Aspiration precautions.
Hold vest therapy for 48 hours.
Check lower extremity ultrasound
Assessment
-
74-year-old woman with past medical history noted admitted to the hospital few days after undergoing left knee arthroplasty. Patient started with a cough, progressive shortness of breath and significant generalized malaise and decreased appetite.
Found to be hypoxemic with significant bilateral infiltrates on CAT scan. We were consulted for evaluation 11/02/2024.
Acute-hypoxemic respiratory failure
CT chest with severe bilateral groundglass opacities/large hiatal hernia filled with fluid, dilated esophagus..
Suspect aspiration pneumonia - likely intra-/deep-operatively related
11/02/2024 patient has a very large hiatal hernia/stomach projects over the left pulmonary field.
Negative COVID/negative influenza.
Pulmonary embolism-noted on CT chest 11/12/24
Status post left total knee arthroplasty 10/29/2024
Anemia: Likely postoperative blood loss
Mild hyponatremia - now resolved
Chronic prednisone use (RA): Random cortisol 15.7.
Leukocytosis
Conditions present prior admission:
Hypertension
Hypothyroidism
Rheumatoid arthritis
Restless leg syndrome
Left total hip arthroplasty 10/29/2024
History of appendectomy
History of right elbow surgery
Former smoker in the distant past
Plan
Respiratory status has not improved.
Continue supplemental oxygen as needed.
Assess supplemental oxygen needs closer to time of discharge
Aspiration precautions
Nebulizers as needed-currently not bronchospastic
Mucolytic's
CT chest 11/12/24 reviewed- new Pulmonary embolism and significant bilateral multifocal pneumonia, 14 cm hiatal hernia..
Aspiration precautions.
Speech therapy following-correspondence reviewed-dysphagia diet with thin liquids.
Follow radiographically.
Reportedly takes prednisone 10 mg twice daily at home-currently on hydrocortisone 20 mg IV every 12 hours
Check cultures.
Empiric antibiotics- finished a course of cefepime and Flagyl-now on doxycycline
Echocardiogram 11/12/24-EF 60-65%, intermediate diastolic dysfunction, aortic sclerosis, normal right ventricular size and function, PA systolic [address] chest with new pulmonary embolism.
Check lower extremity ultrasound.
Lovenox 1 mg/kg every 12 hours initiated-eventually convert to oral anticoagulant treatment for minimum of 3 months.
DVT prophylaxis-on Lovenox 60 mg every 12 hours.
GI prophylaxis-on pantoprazole.
Nutrition
Early mobilization
Outpatient pulmonary follow-up

Data reviewed:
-
CT angiogram of the chest 11/01/2024:
There is no pulmonary embolism.
There is no aortic dissection.
There is no pneumothorax.
There are no abnormal pleural or parenchymal masses.
There are tiny bilateral pleural effusions.
There is severe predominantly central bilateral groundglass opacities in all lobes concerning for developing pneumonia. Interstitial lung disease cannot be excluded.
The mediastinum is normal.
There is no hilar or mediastinal lymphadenopathy.
There is no axillary lymphadenopathy.
There is a large hiatal hernia. Almost the entire stomach is within the thorax. The esophagus is distended and with a an air-fluid level.
The osseous structures show mild degenerative disease. There are old left-sided rib fractures.
CT chest 11/11/24-. There is a new peripheral right lower lobe pulmonary embolism with right heart strain, significant worsening of bilateral multifocal pneumonia
Subjective Data
-
Date of Service:
Date of Service: November 12, 2024
Chief Complaint: Pulmonary Follow Up and Dyspnea Follow Up
Subjective:
Called to see patient again now with PE, still very short of breath with minimal exertion, still on 3 L, no chest pain, productive cough, or abdominal pain
Review of Systems
General: Other (per HPI)
Objective Data
Data Reviewed
Vital Signs / I&O:
Vital Signs
Temp Pulse Resp BP Pulse Ox
98.5 F 83 20 125/71 94
11/12/24 07:00 11/12/24 07:00 11/12/24 07:00 11/12/24 07:00 11/12/24 08:42
Intake and Output
11/11/24 11/12/24 11/13/24
06:59 06:59 06:59
Intake Total 1220 / 1220 100 / 100
Output Total 575 / 575 1800 / 1800
Balance 645 / 645 -1700 / -1700
SaO2: 94
Nasal Cannula flow liters per minute: 3
Physical Exam
General: Respiratory Distress (n), Comfortable, Chills (n) and Sweats (n)
HEENT: Normocephalic and Anicteric
Cardiovascular: Regular Rhythm, Murmur (n), Rub (n) and Peripheral Edema (n)
Respiratory: Wheeze (n), Crackles (Bibasilar), Rhonchi (n) and Non-Labored Respirations
GI: Soft, Non Distended, Non Tender and Normal Bowel Sounds
Neurology: Awake, Alert, No Motor Deficits and Tremors (n)
Skin: Warm, Good Color, Cyanosis (n) and Jaundice (n)
Labs/Micro/Reports
Lab Data
11/12/24 07:31
11/12/24 07:31
Laboratory Results
11/11/24 11/12/24 11/12/24
23:29 07:31 12:40
APTT 36.4 H > 200 H* 123.8 H
Microbiology
11/11/24 11:45 Feces/Stool - Final
Negative for Norovirus GI and GII.
--- NOTE | 2024-11-12 16:08 | CM ---
Chart reviewed for d/c planning.
Pt started vest therapy. Per pulmonary, hold for 48 hours.
Cont to be on 3L O2, wean as tolerated
Will need new PT/OT orders to resume activity
[facility] checked for Eliquis. Pt uses [facility]. Per [facility], medication is covered, co-pay will be $141.00
Updated hospitalist
Plan: New PT/OT orders to evaluate. Prev plan was for SNF.
CM will cont to follow hospital course
[2024-11-12 19:30] VITALS: BP 103/62; BP 130/75; BP 135/77; PULSE 70; PULSE 77
[2024-11-12 22:09] VITALS: BP 121/89
[2024-11-12] MEDS: NEURONTIN 100 MG PO (22:10)
[2024-11-12] MEDS: VIBRAMYCIN 100 MG PO (22:10)
[2024-11-12] MEDS: CRESTOR 20 MG PO (22:11)
[2024-11-12] MEDS: TOPROL XL 50 MG PO (22:11)
[2024-11-12] MEDS: NORVASC 5 MG PO (22:11)
[2024-11-12] MEDS: TYLENOL 650 MG PO (22:20)
[2024-11-13] VITALS (9 sets, daily range): BP systolic 103–146; BP diastolic 60–83; PULSE 74–108; O2SAT 94; BMI 18.6
[2024-11-13] MEDS: SYNTHROID 125 MCG PO (05:26)
[2024-11-13] MEDS: OCEAN, SALINE MIST 2 SPRAYS NASAL (06:07)
--- NOTE | 2024-11-13 06:26 | W.PN.UPDATE ---
Update Note
Progress Note Update
Patient seen and evaluated this morning by Orthopedic surgery. 2 weeks s/p left total hip replacement performed on 10/29/[address] Singh. Primary team requested wound/incision check after noticing some serous drainage. Clinically, incision
is healing well with skin clips intact. Very scant serous drainage on 4 x 4's overlying incision. No active drainage appreciated and no overt concerns. 4 x 4's, ABD, and Medipore tape reapplied to left hip. Discussed leaving skin clips intact for
another 5 to 7 days to allow for further healing. On Lovenox and supplemental oxygen (3L) as needed for right lower lobe PE. Appreciate all teams involved with care of this patient. Please reach out with any further questions or concerns.
[2024-11-13] MEDS: MORPHINE SULFATE 2 MG IV ×2 (07:42→13:56)
[2024-11-13] MEDS: SENOKOT 17.2 MG PO (07:42)
[2024-11-13] MEDS: CELEBREX 100 MG PO ×2 (07:42→20:35)
[2024-11-13] MEDS: PROTONIX IV 40 MG IV ×2 (07:43→20:36)
[2024-11-13] MEDS: SOLU-CORTEF 20 MG IV ×2 (07:43→20:36)
[2024-11-13] MEDS: COLACE 100 MG PO (07:43)
[2024-11-13] MEDS: FLORASTOR 250 MG PO ×2 (07:43→20:36)
[2024-11-13] MEDS: ZESTRIL 10 MG PO (07:43)
[2024-11-13] MEDS: VIBRAMYCIN 100 MG PO ×2 (07:43→20:37)
[2024-11-13] MEDS: FEOSOL 325 MG PO (07:43)
[2024-11-13] MEDS: MUCINEX 600 MG PO ×2 (07:43→20:35)
[2024-11-13] MEDS: NSS (PRESERVATIVE FREE) 10 ML IV ×2 (07:43→20:36)
--- NOTE | 2024-11-13 07:47 | W.PN.CD ---
Today's Communication / Plan
-
transition to DOAC when ok with pulmonary
No further cardiovascular recommendations
I will sign off
Impression / Plan
-
74 yo female with PMH of HTN, hyperlipidemia, rheumatoid arthritis, hypothyroidism, recent left SHARAN 10/29/24 is admitted with SOB, cough, myalgia. Found to have PNA and also PE. We are consulted for acute right heart strain.
# Acute PE
-recent left SHARAN 10/29/24
-right heart strain on CT
-echo without any evidence of right heart strain
-continue enoxaparin (treatment dose), and transition to OAC as per pulmonary recommendation
#PNA
-Abx per hospitalist
# PAC's
-frequent on EKG, no sxs
-cont Toprol XL
-monitor on tele for arrhythmia
# HTN
-chronic, stable
-continue lisinopril, amlodipine, Toprol XL
# Hyperlipidemia
-stable: continue statin
Subjective:
post op pain the driving issue of sob, when controlled denies. Sinus congestion with oxygen. No cp.
Physical Exam
Vital Signs/Labs
Vital Signs
Temp Pulse Resp BP Pulse Ox
98.8 F 67 20 125/75 96
11/13/24 03:27 11/13/24 03:27 11/13/24 03:27 11/13/24 03:27 11/13/24 03:27
11/12/24 11/13/24 11/14/24
06:59 06:59 06:59
Actual Weight 62.142 kg 57.181 kg
APTT Cancelled 11/12/24 18:00
Magnesium 1.5 mg/dl (1.6-2.3) L 11/12/24 07:31
11/01/24 11/01/24 11/06/24
17:39 18:28 09:51
Rrz-E-Rhvcccrusaz Pept Cancelled [id number]
Physical Exam
Constitutional: No acute distress and Other ([place])
Cardiovascular: Rhythm & rate is regular, Systolic murmur absent, Diastolic murmur absent and Pedal edema present (trace bl)
Respiratory: Respiratory effort normal, Lungs clear to auscul., Wheeze Absent and Crackles Absent
Neuro/Psych: AO x 3
Data Reviewed
-
Date of Service: November 13, 2024
Medical Decision Making: Review of Case with other Provider (Dr Alvarenga no cardiac recommendations, I will sign off )
EKG: Other (tele: sinus with pacs)
[2024-11-13 07:53] LABS: Hematocrit 30.1 % (37.0-47.0); Hemoglobin 9.8 g/dL (12.0-16.0); Mean Corp Hgb Conc. 32.6 g/dL (33.0-37.0); Mean Corpuscular Hgb 31.2 pg (27.0-31.0); Mean Corpuscular Volume 95.9 fL (81.0-99.0); Mean Platelet Volume 10.3 fL (7.4-10.4); Platelet Count 315 10^3/uL (130-400); Red Blood Cell Count 3.14 10^6/uL (4.20-5.40); Red Cell Dist. Width 14.2 % (11.5-14.5); White Blood Cell Count 11.5 10^3/uL (4.8-10.8)
[2024-11-13 08:35] LABS: Blood Urea Nitrogen 20 mg/dl (7-17); Carbon Dioxide 23 mmol/L (22-30); Chloride 102 mmol/L (98-107); Estimated Creatinine Clearance 72 ml/min; Glucose 100 mg/dl (70-99); Magnesium 1.8 mg/dl (1.6-2.3); Potassium 3.5 mmol/L (3.5-5.1); Sodium 135 mmol/L (135-145); eGFR > 60.00
[2024-11-13] MEDS: LOVENOX 60 MG SC (09:23)
--- NOTE | 2024-11-13 10:39 | W.PN.PUL.V3 ---
Today's Communication / Plan
-
Wean oxygen.
Continue vest and mucus clearing devices.
Converts to Eliquis-treatment for minimum of 3-6 months.
Lower extremity ultrasound-pending
Assessment
-
74-year-old woman with past medical history noted admitted to the hospital few days after undergoing left knee arthroplasty. Patient started with a cough, progressive shortness of breath and significant generalized malaise and decreased appetite.
Found to be hypoxemic with significant bilateral infiltrates on CAT scan. We were consulted for evaluation 11/02/2024.
Acute-hypoxemic respiratory failure
CT chest with severe bilateral groundglass opacities/large hiatal hernia filled with fluid, dilated esophagus..
Suspect aspiration pneumonia - likely intra-/deep-operatively related
11/02/2024 patient has a very large hiatal hernia/stomach projects over the left pulmonary field.
Negative COVID/negative influenza.
Pulmonary embolism-noted on CT chest 11/12/24
Status post left total knee arthroplasty 10/29/2024
Anemia: Likely postoperative blood loss
Mild hyponatremia - now resolved
Chronic prednisone use (RA): Random cortisol 15.7.
Leukocytosis
Conditions present prior admission:
Hypertension
Hypothyroidism
Rheumatoid arthritis
Restless leg syndrome
Left total hip arthroplasty 10/29/2024
History of appendectomy
History of right elbow surgery
Former smoker in the distant past
Plan
Respiratory status has improved slightly
Continue supplemental oxygen as needed-currently on 3 L-94% saturation
Assess supplemental oxygen needs closer to time of discharge
Aspiration precautions
Nebulizers as needed-currently not bronchospastic
Mucolytic's
CT chest 11/12/24 reviewed- new pulmonary embolism and significant bilateral multifocal pneumonia, 14 cm hiatal hernia..
Aspiration precautions.
Speech therapy following-correspondence reviewed-dysphagia diet with thin liquids.
Follow radiographically.
Reportedly takes prednisone 10 mg twice daily at home-currently on hydrocortisone 20 mg IV every 12 hours
Check cultures..
Stools negative for noro virus GI and GII
Influenza negative.
Blood cultures negative
Empiric antibiotics- finished a course of cefepime and Flagyl-now on doxycycline
Echocardiogram 11/12/24-EF 60-65%, intermediate diastolic dysfunction, aortic sclerosis, normal right ventricular size and function, PA systolic [address] chest with new pulmonary embolism.
Check lower extremity ultrasound.
Lovenox 1 mg/kg every 12 hours initiated-eventually convert to oral anticoagulant treatment for minimum of 3 months.
DVT prophylaxis-on Lovenox 60 mg every 12 hours.
GI prophylaxis-on pantoprazole.
Nutrition
Early mobilization
Outpatient pulmonary follow-up

Data reviewed:
-
CT angiogram of the chest 11/01/2024:
There is no pulmonary embolism.
There is no aortic dissection.
There is no pneumothorax.
There are no abnormal pleural or parenchymal masses.
There are tiny bilateral pleural effusions.
There is severe predominantly central bilateral groundglass opacities in all lobes concerning for developing pneumonia. Interstitial lung disease cannot be excluded.
The mediastinum is normal.
There is no hilar or mediastinal lymphadenopathy.
There is no axillary lymphadenopathy.
There is a large hiatal hernia. Almost the entire stomach is within the thorax. The esophagus is distended and with a an air-fluid level.
The osseous structures show mild degenerative disease. There are old left-sided rib fractures.
CT chest 11/11/24-. There is a new peripheral right lower lobe pulmonary embolism with right heart strain, significant worsening of bilateral multifocal pneumonia
Subjective Data
-
Date of Service:
Date of Service: November 13, 2024
Chief Complaint: Pulmonary Follow Up and Dyspnea Follow Up
Subjective:
Overall feels slightly better, mild productive cough, no chest pain, pleurisy or hemoptysis, no abdominal pain
Review of Systems
General: Other (per HPI)
Objective Data
Data Reviewed
Vital Signs / I&O:
Vital Signs
Temp Pulse Resp BP Pulse Ox
99.1 F 76 20 146/83 93
11/13/24 07:00 11/13/24 07:00 11/13/24 07:00 11/13/24 07:00 11/13/24 07:00
Intake and Output
11/12/24 11/13/24 11/14/24
06:59 06:59 06:59
Intake Total 100 / 100 960 / 960
Output Total 1800 / 1800 300 / 300
Balance -1700 / -1700 660 / 660
SaO2: 93
Nasal Cannula flow liters per minute: 2
Physical Exam
General: Respiratory Distress (n), Comfortable, Chills (n) and Sweats (n)
HEENT: Normocephalic and Anicteric
Cardiovascular: Regular Rhythm, Murmur (n), Rub (n) and Peripheral Edema (n)
Respiratory: Wheeze (n), Crackles (Bibasilar), Rhonchi (n) and Non-Labored Respirations
GI: Soft, Non Distended, Non Tender and Normal Bowel Sounds
Neurology: Awake, Alert, No Motor Deficits and Tremors (n)
Skin: Warm, Good Color, Cyanosis (n) and Jaundice (n)
Labs/Micro/Reports
Lab Data
11/13/24 07:19
11/13/24 07:19
Laboratory Results
11/12/24 11/12/24
12:40 18:00
APTT 123.8 H Cancelled
Microbiology
11/11/24 11:45 Feces/Stool - Final
Negative for Norovirus GI and GII.
--- NOTE | 2024-11-13 11:16 | W.PN.HOSP.TC ---
Today's Communication/Plan
-
Finally she is turning the corner
Continue antibiotics
Continue vest
Start Eliquis
Venous Dopplers lower extremity
Hopefully can be discharged by or so.
Assessment / Plan
Assessment / Plan
Patient is a 74F with PMH significant for RA, HTN and recent L SHARAN who presented w cough and SOB.
CVS: S1-S2 normal
Chest: few rales bilaterally
Abdomen: Soft, NT / Bowel sounds present
Extremities: No edema, normal pulses
Left hip site with mild serous drainage. No redness or tenderness. Will request orthopedics to reevaluate
ECHO- Left ventricle is small in size. . Normal left ventricular systolic function. Left ventricular ejection fraction is 60-65% by volumetric assessment. Normal regional wall motion. Normal left ventricular wall thickness. Diastolic
function indeterminate. Structurally normal aortic valve without significant stenosis and trace regurgitation. Trileaflet aortic valve. Aortic sclerosis without stenosis.
CT PE study-new peripheral right lower lobe PE with right heart strain. Worsening of bilateral multifocal pneumonia compared to 11/01/2024. 14 cm hiatal hernia
# Multifocal Pneumonia, likely aspiration pneumonia
Acute Hypoxemic Respiratory Failure secondary to the above
Sepsis secondary to the above
COVID / Flu negative in the ED.
Completed IV AB- continue Doxy
Pureed diet as per speech
Wean oxygen as tolerated
Possible aspiration during vomiting
Added Acapella and vest therapy
Echo noted-normal EF
She remains on 3 L now. Was on 5 to 6 L before
Wean as tolerated
#Right lower lobe PE-Lovenox. Check venous Dopplers. switch to Eliquis
# Vomiting and 2 episodes of diarrhea-resolved
# Urinary retention-retention protocol. Aranda placed 11/11/2024
# Hiatal Hernia / GERD
- Suspected aspiration component given multifocal infiltrates and large hiatal hernia / esophageal air-fluid level noted on CT.
- NG placed for decompression in the ED, since discontinued with resolution nausea and start pureed diet as above (Abd X-ray also noted tube possibly in LLL bronchus vs hiatal hernia)
- IV PPI.
- Speech eval appreciated cleared for pureed diet continue
- Surgery eval appreciated outpt follow up for EGD and eventual repair
# Anemia-PO iron
# Hypokalemia-replaced
# Hypophosphatemia-replace
# Hyponatremia resolved
- Na - 125 down from pre-op value of 140.
- Likely due to ADH release s/p surgery, anesthesia, pain response
- Significantly improved to 130s following IVF since completed.
# s/p L SHARAN 10/29/24
- Hip X-ray appreciated no acute abn's, left hip prosthetic in expected location
- Continue post-op care including ASA, PT
- Orthopedic eval appreciated WBAT LLE w walker, total hip precautions
-Orthopedics evaluated the patient. Continue dressing changes with mild drainage.
# Rheumatoid Arthritis
- Chronic Steroid Dependence
- stress dose steroids Hydrocortisone tapered to 20 mg IV Q12H (keep this dose now which is equivalent to 5 mg prednisone twice daily)
- Eventual taper back to home dose prednisone 5mg BID
# Hypertension
- Home metoprolol resumed with holding parameters
- Amlodipine 5 mg daily resumed with holding parameters SBP<120, Restarted lisinopril and Hold HCTz
# Hypothyroidism
- Stable. Continue T4 supplementation.
# Insomnia
- Low dose Trazodone started, no significant improvement noted however, since discontinued
- Monitor for now, sleep issues is largely due to position restrictions d/t hip precautions and hiatal hernia,
# DVT Prophylaxis: Lovenox
# Code Status: DNR
Discussed with family 11/12/2024
Anticipated Discharge: 24 - 48 hours
Subjective/Interval History
-
Date of Service: November 13, 2024
Objective Data
-
Labs:
Laboratory Results
11/12/24 11/13/24
18:00 07:19
WBC 11.5 H
Hgb 9.8 L
Hct 30.1 L
Plt Count 315 D
APTT Cancelled
Sodium 135
Potassium 3.5
Chloride 102
Carbon Dioxide 23
BUN 20 H
Creatinine 0.5 L
Glucose 100 H
Calcium 8.0 L
Vital Signs:
Vital Signs
Temp Pulse Resp BP Pulse Ox
99.1 F 76 20 146/83 93
11/13/24 07:00 11/13/24 07:00 11/13/24 07:00 11/13/24 07:00 11/13/24 10:39
I&O
11/12/24 11/13/24 11/14/24
06:59 06:59 06:59
Intake Total 100 / 100 960 / 960
Output Total 1800 / 1800 300 / 300
Balance -1700 / -1700 660 / 660
[2024-11-13] MEDS: COLACE PO (20:23)
[2024-11-13] MEDS: SENOKOT PO (20:29)
[2024-11-13] MEDS: ELIQUIS 10 MG PO (20:35)
[2024-11-13] MEDS: TESSALON PERLES 200 MG PO (20:37)
[2024-11-13] MEDS: ROXICODONE 5 MG PO (20:37)
[2024-11-13] MEDS: TOPROL XL 50 MG PO (22:37)
[2024-11-13] MEDS: CRESTOR 20 MG PO (22:38)
[2024-11-13] MEDS: NORVASC PO (22:38)
[2024-11-13] MEDS: NEURONTIN 100 MG PO (22:38)
[2024-11-14 03:30] VITALS: BP 133/74
[2024-11-14] MEDS: SYNTHROID 125 MCG PO (05:37)
[2024-11-14 06:00] VITALS: BMI 17.9
[2024-11-14 07:30] VITALS: BP 143/81
[2024-11-14 08:11] LABS: Hematocrit 28.9 % (37.0-47.0); Hemoglobin 9.3 g/dL (12.0-16.0); Mean Corp Hgb Conc. 32.2 g/dL (33.0-37.0); Mean Corpuscular Hgb 31.2 pg (27.0-31.0); Platelet Count 334 10^3/uL (130-400); Red Blood Cell Count 2.98 10^6/uL (4.20-5.40); Red Cell Dist. Width 14.4 % (11.5-14.5); White Blood Cell Count 8.4 10^3/uL (4.8-10.8)
[2024-11-14 08:43] LABS: Blood Urea Nitrogen 19 mg/dl (7-17); Calcium 7.6 mg/dl (8.4-10.2); Carbon Dioxide 26 mmol/L (22-30); Chloride 102 mmol/L (98-107); Estimated Creatinine Clearance 69 ml/min; Glucose 96 mg/dl (70-99); Potassium 3.8 mmol/L (3.5-5.1); Sodium 137 mmol/L (135-145); eGFR > 60.00
[2024-11-14] MEDS: ROXICODONE 5 MG PO ×2 (08:55→15:41)
[2024-11-14] MEDS: VIBRAMYCIN 100 MG PO ×2 (08:56→20:30)
[2024-11-14] MEDS: ZESTRIL 10 MG PO (08:56)
[2024-11-14] MEDS: ELIQUIS 10 MG PO ×2 (08:56→20:31)
[2024-11-14] MEDS: MUCINEX 600 MG PO ×2 (08:57→20:34)
[2024-11-14] MEDS: FEOSOL 325 MG PO (08:57)
[2024-11-14] MEDS: CELEBREX 100 MG PO ×2 (08:58→20:32)
[2024-11-14] MEDS: SENOKOT 17.2 MG PO (08:58)
[2024-11-14] MEDS: COLACE 100 MG PO (08:58)
[2024-11-14] MEDS: FLORASTOR 250 MG PO ×2 (09:01→20:40)
[2024-11-14] MEDS: PROTONIX IV 40 MG IV ×2 (10:04→20:34)
[2024-11-14] MEDS: SOLU-CORTEF 20 MG IV ×2 (10:04→20:33)
[2024-11-14] MEDS: NSS (PRESERVATIVE FREE) 10 ML IV ×2 (10:04→20:34)
--- NOTE | 2024-11-14 10:10 | W.PN.PUL.V3 ---
Today's Communication / Plan
-
Wean oxygen.
Eliquis initiated.
Bronchodilators and mucus clearing devices.
[place] nasal spray
Assessment
-
74-year-old woman with past medical history noted admitted to the hospital few days after undergoing left knee arthroplasty. Patient started with a cough, progressive shortness of breath and significant generalized malaise and decreased appetite.
Found to be hypoxemic with significant bilateral infiltrates on CAT scan. We were consulted for evaluation 11/02/2024.
Acute-hypoxemic respiratory failure
CT chest with severe bilateral groundglass opacities/large hiatal hernia filled with fluid, dilated esophagus..
Suspect aspiration pneumonia - likely intra-/deep-operatively related
11/02/2024 patient has a very large hiatal hernia/stomach projects over the left pulmonary field.
Negative COVID/negative influenza.
Pulmonary embolism-noted on CT chest 11/12/24
Status post left total knee arthroplasty 10/29/2024
Anemia: Likely postoperative blood loss
Mild hyponatremia - now resolved
Chronic prednisone use (RA): Random cortisol 15.7.
Leukocytosis
Conditions present prior admission:
Hypertension
Hypothyroidism
Rheumatoid arthritis
Restless leg syndrome
Left total hip arthroplasty 10/29/2024
History of appendectomy
History of right elbow surgery
Former smoker in the distant past
Plan
Respiratory status continues to slowly improve
Continue supplemental oxygen as needed-currently on 3 L-94% saturation
Assess supplemental oxygen needs closer to time of discharge
Aspiration precautions
Nebulizers as needed-currently not bronchospastic
Mucolytic's
CT chest 11/12/24 reviewed- new pulmonary embolism and significant bilateral multifocal pneumonia, 14 cm hiatal hernia-anticoagulation begun
Aspiration precautions.
Speech therapy following-correspondence reviewed-dysphagia diet with thin liquids.
Follow radiographically.
Reportedly takes prednisone 10 mg twice daily at home-currently on hydrocortisone 20 mg IV every 12 hours..
[place] nasal spray and Consider adding nasal steroid if persists
Pulmonary embolism and DVT noted-initially on Lovenox now Eliquis
Cultures reviewed
Stools negative for noro virus GI and GII
Influenza negative.
Blood cultures negative
Empiric antibiotics- finished a course of cefepime and Flagyl-now on doxycycline
Echocardiogram 11/12/24-EF 60-65%, intermediate diastolic dysfunction, aortic sclerosis, normal right ventricular size and function, PA systolic [address] chest with new pulmonary embolism..
Lower extremity ultrasound 11/14/24-acute right leg behind the knee and calf DVT
Lovenox 1 mg/kg every 12 hours initiated-eventually convert to oral anticoagulant treatment for minimum of 3 months.
DVT prophylaxis-on Lovenox 60 mg every 12 hours-converted to Eliquis
GI prophylaxis-on pantoprazole.
Nutrition
Early mobilization
Outpatient pulmonary follow-up

Data reviewed:
-
CT angiogram of the chest 11/01/2024:
There is no pulmonary embolism.
There is no aortic dissection.
There is no pneumothorax.
There are no abnormal pleural or parenchymal masses.
There are tiny bilateral pleural effusions.
There is severe predominantly central bilateral groundglass opacities in all lobes concerning for developing pneumonia. Interstitial lung disease cannot be excluded.
The mediastinum is normal.
There is no hilar or mediastinal lymphadenopathy.
There is no axillary lymphadenopathy.
There is a large hiatal hernia. Almost the entire stomach is within the thorax. The esophagus is distended and with a an air-fluid level.
The osseous structures show mild degenerative disease. There are old left-sided rib fractures.
CT chest 11/11/24-. There is a new peripheral right lower lobe pulmonary embolism with right heart strain, significant worsening of bilateral multifocal pneumonia
Subjective Data
-
Date of Service:
Date of Service: November 14, 2024
Chief Complaint: Pulmonary Follow Up and Dyspnea Follow Up
Subjective:
Complains of nasal congestion, no chest pain, some cough, shortness of breath, no abdominal pain
Review of Systems
General: Other ( per HPI)
Objective Data
Data Reviewed
Vital Signs / I&O:
Vital Signs
Temp Pulse Resp BP Pulse Ox
97.9 F 71 24 143/81 91
11/14/24 07:30 11/14/24 08:56 11/14/24 07:30 11/14/24 08:56 11/14/24 07:30
Intake and Output
11/13/24 11/14/24 11/15/24
06:59 06:59 06:59
Intake Total 960 / 960 780 / 780
Output Total 300 / 300 450 / 450
Balance 660 / 660 330 / 330
SaO2: 91
Nasal Cannula flow liters per minute: 4
Physical Exam
General: Respiratory Distress (n), Comfortable, Chills (n) and Sweats (n)
HEENT: Normocephalic and Anicteric
Cardiovascular: Regular Rhythm, Murmur (n), Rub (n) and Peripheral Edema (n)
Respiratory: Wheeze (n), Crackles (Bibasilar), Rhonchi (n) and Non-Labored Respirations
GI: Soft, Non Distended, Non Tender and Normal Bowel Sounds
Neurology: Awake, Alert, No Motor Deficits and Tremors (n)
Skin: Warm, Good Color, Cyanosis (n) and Jaundice (n)
Labs/Micro/Reports
Lab Data
11/14/24 06:29
11/14/24 06:29
Microbiology
11/11/24 11:45 Feces/Stool - Final
Negative for Norovirus GI and GII.
--- NOTE | 2024-11-14 10:57 | CM ---
Addendum entered by Sander Antonio 11/14/24 15:57:
Per nurse, pt will need air mattress at SNF
Updated [facility]. Per [facility], will check to see if this can be supported
Updated clinicals sent via [facility]
Original Note:
CM spoke w/ pt's grandsonJacob regarding d/c plan and updates. Family is still considering [facility] once pt is medically stable for
d/c. Per hospitalist note, pt is getting better but cont on abx and vest. Currently on 4L O2.
Poss d/c tomorrow.
CM spoke w/ [facility]. May have a bed tomorrow but unsure when they'll have availability if pt cannot d/c tomorrow.
Jacob is requesting a call from hospitalist, ABEBA TT Dr. [place] making him aware
Plan: SNF; family prefers [facility]. Availability is determined by pt's d/c date
[2024-11-14 11:00] VITALS: BP 136/80
--- NOTE | 2024-11-14 12:30 | WOUNDNOTE ---
[facility] RN note: Patient seen for HAPI report for sacral stage 2 pressure injury. Patient s/p L SHARAN 10/29/25. History of HTN, RA. See H+P for complete history. She was admitted from home 11/01/24 after she slid off couch. Admission diagnosis respiratory
insufficiency/pneumonia. She was admitted with L buttocks 'scab'. She now has bilateral sacral/buttocks stage 2 pressure injury. Heels blanchable red with fungal appearing rash. Patient is on a Waffle air overlay. Heels off bed with pillow. Updated
Dr. [place] who approved local care, soft heel relief boots. Sacral/buttocks silicone border foam changed. Patient turned to R semi side lying position with help from Nurse Personal Counselor Shirlene. Heels off bed with air chair cushion and Foot Waffle boots
applied. Patient stated she doesn't like to be turned onto her side. HOB elevated for breathing. O2 in place via nasal canula. Encouraged patient to stay off her sacral/buttocks as much as possible. Po intake documented 50-100%. Patient at risk for
pressure injury despite prevention measures in place d/t sob, needing HOB elevated and she does not like to stay on her side. L hip incisional dressing clean, dry and intact. Patient mentioned she's been having loose stools the past 3 days.
Discussed with MIC Zendejas. Care plan to be updated. Call as needed.
--- NOTE | 2024-11-14 12:35 | WOUNDNOTE ---
[facility] RN note: Patient seen for HAPI report for sacral stage 2 pressure injury. Patient s/p L SHARAN 10/29/25. She was admitted from home 11/01/24 after she slid off couch. Admission diagnosis respiratory insufficiency/pneumonia. She was admitted with L
buttocks 'scab'. She now has bilateral sacral/buttocks stage 2 pressure injury. Heels blanchable red with fungal appearing rash. Patient is on a Waff[place] air overlay. Heels off bed with pillow. Updated Dr. [place] who approved local care, soft heel
relief boots. Sacral/buttocks silicone border foam changed. Patient turned to R semi side lying position with help from Nurse Animal Taxonomist Shirlene. Heels off bed with air chair cushion and Foot Waffle boots applied. Patient stated she doesn't like to be
turned onto her side. HOB elevated for breathing. O2 in place via nasal canula. Encouraged patient to stay off her sacral/buttocks as much as possible. Po intake documented 50-100%. Patient at risk for pressure injury despite prevention measures in
place d/t sob, needing HOB elevated and she does not like to stay on her side. L hip incisional dressing clean, dry and intact. Care plan to be updated.
--- NOTE | 2024-11-14 12:36 | WOUNDNOTE ---
[facility] RN note: Patient seen for HAPI report for sacral stage 2 pressure injury. Patient s/p L SHARAN 10/29/25. She was admitted from home 11/01/24 after she slid off couch. Admission diagnosis respiratory insufficiency/pneumonia. She was admitted with L
buttocks 'scab'. She now has bilateral sacral/buttocks stage 2 pressure injury. Heels blanchable red with fungal appearing rash. Patient is on a Waffle air overlay.
[2024-11-14 15:00] VITALS: BP 118/66
--- NOTE | 2024-11-14 15:45 | W.PN.HOSP.TC ---
Today's Communication/Plan
-
encourage OOB to chair
Ensure supplement
will review with pulmonary
Assessment / Plan
Assessment / Plan
Patient is a 74F with PMH significant for RA, HTN and recent L SHARAN who presented w cough and SOB.
orthopedics reevaluated on 11/13
ECHO- Left ventricle is small in size. . Normal left ventricular systolic function. Left ventricular ejection fraction is 60-65% by volumetric assessment. Normal regional wall motion. Normal left ventricular wall thickness. Diastolic
function indeterminate. Structurally normal aortic valve without significant stenosis and trace regurgitation. Trileaflet aortic valve. Aortic sclerosis without stenosis.
CT PE study-new peripheral right lower lobe PE with right heart strain. Worsening of bilateral multifocal pneumonia compared to 11/01/2024. 14 cm hiatal hernia
# Multifocal Pneumonia, likely aspiration pneumonia
Acute Hypoxemic Respiratory Failure secondary to the above
Sepsis secondary to the above
COVID / Flu negative in the ED.
Completed IV AB- continue Doxy
Pureed diet as per speech
Wean oxygen as tolerated
Possible aspiration during vomiting
Added Acapella and vest therapy
Echo noted-normal EF
She remains on 4 L now. Was on 5 to 6 L before
Wean as tolerated
Pt requesting Ensure chocolate as a supplement
WBC 17.4-->14.1-->11.5-->8.4
#Right lower lobe PE-Lovenox. Check venous Dopplers. switch to Eliquis
# Vomiting and 2 episodes of diarrhea-resolved
# Urinary retention-retention protocol. Aranda placed 11/11/2024
# Hiatal Hernia / GERD
- Suspected aspiration component given multifocal infiltrates and large hiatal hernia / esophageal air-fluid level noted on CT.
- NG placed for decompression in the ED, since discontinued with resolution nausea and start pureed diet as above (Abd X-ray also noted tube possibly in LLL bronchus vs hiatal hernia)
- IV PPI.
- Speech eval appreciated cleared for pureed diet continue
- Surgery eval appreciated outpt follow up for EGD and eventual repair
# Anemia-PO iron
# Hypokalemia-replaced
# Hypophosphatemia-replace
# Hyponatremia resolved
- Na - 137
- Likely due to ADH release s/p surgery, anesthesia, pain response
- Significantly improved to 130s following IVF since completed.
# s/p L SHARAN 10/29/24
- Hip X-ray appreciated no acute abn's, left hip prosthetic in expected location
- Continue post-op care including ASA, PT
- Orthopedic eval appreciated WBAT LLE w walker, total hip precautions
-Orthopedics evaluated the patient. Continue dressing changes with mild drainage.
# Rheumatoid Arthritis
- Chronic Steroid Dependence
- stress dose steroids Hydrocortisone tapered to 20 mg IV Q12H (keep this dose now which is equivalent to 5 mg prednisone twice daily)
- Eventual taper back to home dose prednisone 5mg BID
# Hypertension
- Home metoprolol resumed with holding parameters
- Amlodipine 5 mg daily resumed with holding parameters SBP<120, Restarted lisinopril and Hold HCTz
# Hypothyroidism
- Stable. Continue T4 supplementation.
# Insomnia
- Low dose Trazodone started, no significant improvement noted however, since discontinued
- Monitor for now, sleep issues is largely due to position restrictions d/t hip precautions and hiatal hernia,
# DVT Prophylaxis: Lovenox
# Code Status: DNR
Discussed with gnd son, Jacob 11/14
Anticipated Discharge: > 48 hours
Subjective/Interval History
-
Date of Service: November 14, 2024
Awake, alert, conversant
Objective Data
-
Labs:
Laboratory Results
11/14/24
06:29
WBC 8.4
Hgb 9.3 L
Hct 28.9 L
Plt Count 334
Sodium 137
Potassium 3.8
Chloride 102
Carbon Dioxide 26
BUN 19 H
Creatinine 0.5 L
Glucose 96
Calcium 7.6 L
Vital Signs:
Vital Signs
Temp Pulse Resp BP Pulse Ox
97.9 F 68 18 136/80 92
11/14/24 11:00 11/14/24 11:00 11/14/24 11:00 11/14/24 11:00 11/14/24 11:00
I&O
11/13/24 11/14/24 11/15/24
06:59 06:59 06:59
Intake Total 960 / 960 780 / 780
Output Total 300 / 300 450 / 450
Balance 660 / 660 330 / 330
Review of Systems
-
History Source: Patient and Coordinated Provider
Constitutional: Denies Fever
EENT: Reports No Symptoms Reported
Respiratory: Reports Trouble Breathing
Cardiac: Reports No Symptoms; Denies Chest Pain
Abdomen/GI: Reports No Symptoms
Physical Exam
-
General: Well Nourished, No Apparent Distress and Appears Chronically Ill
HEENT: Normocephalic, Atraumatic and Moist Mucous Membranes
Respiratory: Clear to Auscultation (on shallow respirations)
Cardiac: Regular Rhythm and S1/S2
GI: Soft, Nontender and Nondistended
Musculoskeletal: No Clubbing, No Cyanosis and No Edema
Skin: Warm and Dry
Neuro: Awake, Alert and Oriented
[2024-11-14 19:40] VITALS: BP 137/78
[2024-11-14] MEDS: COLACE PO (20:32)
[2024-11-14] MEDS: LOTRIMIN 1% CREAM 1 APPLIC TOPICAL (20:35)
[2024-11-14] MEDS: CRESTOR 20 MG PO (20:36)
[2024-11-14] MEDS: NORVASC 5 MG PO (20:36)
[2024-11-14] MEDS: NEURONTIN 100 MG PO (20:36)
[2024-11-14] MEDS: TOPROL XL 50 MG PO (20:36)
[2024-11-14] MEDS: TYLENOL 650 MG PO (20:57)
[2024-11-14] MEDS: SENOKOT PO (21:07)
[2024-11-14] MEDS: ZOFRAN 4 MG IV (22:21)
[2024-11-14 23:24] VITALS: BP 129/81
[2024-11-15 03:20] VITALS: BP 120/71
[2024-11-15 06:00] VITALS: BMI 20.2
[2024-11-15 07:00] VITALS: BP 141/82
[2024-11-15 08:38] LABS: Hematocrit 30.6 % (37.0-47.0); Hemoglobin 9.6 g/dL (12.0-16.0); Mean Corp Hgb Conc. 31.4 g/dL (33.0-37.0); Mean Corpuscular Hgb 30.9 pg (27.0-31.0); Mean Corpuscular Volume 98.4 fL (81.0-99.0); Mean Platelet Volume 10.1 fL (7.4-10.4); Platelet Count 331 10^3/uL (130-400); Red Blood Cell Count 3.11 10^6/uL (4.20-5.40); Red Cell Dist. Width 14.3 % (11.5-14.5); White Blood Cell Count 6.8 10^3/uL (4.8-10.8)
[2024-11-15] MEDS: NSS (PRESERVATIVE FREE) IV (11:34)
[2024-11-15] MEDS: PROTONIX IV IV (11:35)
[2024-11-15] MEDS: VIBRAMYCIN 100 MG PO (11:40)
[2024-11-15] MEDS: CELEBREX 100 MG PO ×2 (11:40→20:08)
[2024-11-15] MEDS: MUCINEX 600 MG PO ×2 (11:41→20:07)
[2024-11-15] MEDS: FEOSOL 325 MG PO (11:41)
[2024-11-15] MEDS: SENOKOT 17.2 MG PO ×2 (11:41→20:12)
[2024-11-15] MEDS: ELIQUIS 10 MG PO ×2 (11:42→20:09)
[2024-11-15] MEDS: ZESTRIL 10 MG PO (11:42)
[2024-11-15] MEDS: COLACE 100 MG PO ×2 (11:43→20:11)
[2024-11-15] MEDS: SYNTHROID 125 MCG PO (11:43)
[2024-11-15] MEDS: PROTONIX 40 MG PO ×2 (11:44→20:08)
[2024-11-15] MEDS: SOLU-CORTEF 20 MG IV ×2 (11:44→20:06)
[2024-11-15] MEDS: FLUSH (NSS) 1 FLUSH IV (11:45)
[2024-11-15] MEDS: LOTRIMIN 1% CREAM 1 APPLIC TOPICAL ×2 (11:46→20:05)
[2024-11-15] MEDS: FLORASTOR 250 MG PO ×2 (11:59→20:09)
[2024-11-15 12:08] VITALS: BP 146/83
--- NOTE | 2024-11-15 14:32 | W.PN.PUL.V3 ---
Today's Communication / Plan
-
.
Respiratory status is very slowly improved.
Consider discontinuing hydrocortisone-patient was on prednisone 10 mg twice daily-initiate prednisone 40 mg daily for 4 days, then 30 mg daily for 4 days and then 10 mg twice daily.
Continue supplemental oxygen-attempt to wean.
Aspiration precautions.
Continue nebulizers..
Finish finite course of doxycycline-currently afebrile and leukocytosis resolved
Stable from a pulmonary perspective for discharge-high risk for fairly rapid readmission cause of debilitated state and comorbidities.
Eventual outpatient radiographic follow-up of multifocal pneumonia to ensure resolution.
Pulmonary will sign off-discussed with Dr. [place]-please call with questions
Assessment
-
74-year-old woman with past medical history noted admitted to the hospital few days after undergoing left knee arthroplasty. Patient started with a cough, progressive shortness of breath and significant generalized malaise and decreased appetite.
Found to be hypoxemic with significant bilateral infiltrates on CAT scan. We were consulted for evaluation 11/02/2024.
Acute-hypoxemic respiratory failure
CT chest with severe bilateral groundglass opacities/large hiatal hernia filled with fluid, dilated esophagus..
Suspect aspiration pneumonia - likely intra-/deep-operatively related
11/02/2024 patient has a very large hiatal hernia/stomach projects over the left pulmonary field.
Negative COVID/negative influenza.
Pulmonary embolism-noted on CT chest 11/12/24
Status post left total knee arthroplasty 10/29/2024
Anemia: Likely postoperative blood loss
Mild hyponatremia - now resolved
Chronic prednisone use (RA): Random cortisol 15.7.
Leukocytosis
Conditions present prior admission:
Hypertension
Hypothyroidism
Rheumatoid arthritis
Restless leg syndrome
Left total hip arthroplasty 10/29/2024
History of appendectomy
History of right elbow surgery
Former smoker in the distant past
Plan
Respiratory status continues to slowly improve-remains tenuous and will be for several weeks/months and maybe forever with overall decline status and significant comorbidities
Continue supplemental oxygen as needed-currently on 4 L-91% saturation
Assess supplemental oxygen needs closer to time of discharge
Aspiration precautions
Nebulizers as needed-currently not bronchospastic
Mucolytic's
CT chest 11/12/24 reviewed- new pulmonary embolism and significant bilateral multifocal pneumonia, 14 cm hiatal hernia-anticoagulation begun
Aspiration precautions.
Speech therapy following-correspondence reviewed-dysphagia diet with thin liquids.
Follow radiographically.
Reportedly takes prednisone 10 mg twice daily at home-currently on hydrocortisone 20 mg IV every 12 hours-could convert back to prednisone 40 mg daily for 4 days and then 30 mg daily for 4 days and then 10 mg twice daily
[place] nasal spray and Consider adding nasal steroid if persists
Pulmonary embolism and DVT noted-initially on Lovenox now Eliquis
Cultures reviewed
Stools negative for noro virus GI and GII
Influenza negative.
Blood cultures negative
Empiric antibiotics- finished a course of cefepime and Flagyl-now on doxycycline
Echocardiogram 11/12/24-EF 60-65%, intermediate diastolic dysfunction, aortic sclerosis, normal right ventricular size and function, PA systolic [address] chest with new pulmonary embolism..
Lower extremity ultrasound 11/14/24-acute right leg behind the knee and calf DVT
Lovenox 1 mg/kg every 12 hours initiated-eventually convert to oral anticoagulant treatment for minimum of 3 months.
DVT prophylaxis-on Lovenox 60 mg every 12 hours-converted to Eliquis
GI prophylaxis-on pantoprazole.
Nutrition
Early mobilization.
High risk for fairly rapid readmission due to severely debilitated state and multiple comorbidities-prednisone taper, finite course of antibiotics, aspiration precautions-pulmonary will sign off-discussed with Dr. [place]
Outpatient pulmonary follow-up

Data reviewed:
-
CT angiogram of the chest 11/01/2024:
There is no pulmonary embolism.
There is no aortic dissection.
There is no pneumothorax.
There are no abnormal pleural or parenchymal masses.
There are tiny bilateral pleural effusions.
There is severe predominantly central bilateral groundglass opacities in all lobes concerning for developing pneumonia. Interstitial lung disease cannot be excluded.
The mediastinum is normal.
There is no hilar or mediastinal lymphadenopathy.
There is no axillary lymphadenopathy.
There is a large hiatal hernia. Almost the entire stomach is within the thorax. The esophagus is distended and with a an air-fluid level.
The osseous structures show mild degenerative disease. There are old left-sided rib fractures.
CT chest 11/11/24-. There is a new peripheral right lower lobe pulmonary embolism with right heart strain, significant worsening of bilateral multifocal pneumonia
Subjective Data
-
Date of Service:
Date of Service: November 15, 2024
Chief Complaint: Pulmonary Follow Up and Dyspnea Follow Up
Subjective:
Feels better, no complaints of chest pain, decreased cough, no abdominal pain,
Review of Systems
General: Other ( per HPI)
Objective Data
Data Reviewed
Vital Signs / I&O:
Vital Signs
Temp Pulse Resp BP Pulse Ox
98.5 F 81 17 146/83 98
11/15/24 12:08 11/15/24 12:08 11/15/24 12:08 11/15/24 12:08 11/15/24 12:08
Intake and Output
11/14/24 11/15/24 11/16/24
06:59 06:59 06:59
Intake Total 780 / 780 600 / 600
Output Total 450 / 450 1100 / 1100
Balance 330 / 330 -500 / -500
SaO2: 98
Nasal Cannula flow liters per minute: 4
Physical Exam
General: Respiratory Distress (n), Comfortable, Chills (n) and Sweats (n)
HEENT: Normocephalic and Anicteric
Cardiovascular: Regular Rhythm, Murmur (n), Rub (n) and Peripheral Edema (n)
Respiratory: Wheeze (n), Crackles (Bibasilar), Rhonchi (n) and Non-Labored Respirations
GI: Soft, Non Distended, Non Tender and Normal Bowel Sounds
Neurology: Awake, Alert, No Motor Deficits and Tremors (n)
Skin: Warm, Good Color, Cyanosis (n) and Jaundice (n)
Labs/Micro/Reports
Lab Data
11/15/24 06:30
11/14/24 06:29
[2024-11-15 15:00] VITALS: BP 141/79
[2024-11-15 16:56] VITALS: BMI 20.2
--- NOTE | 2024-11-15 17:22 | W.PN.HOSP.TC ---
Today's Communication/Plan
-
potential dc to [facility] tomorrow
Assessment / Plan
Assessment / Plan
Patient is a 74F with PMH significant for RA, HTN and recent L SHARAN who presented w cough and SOB.
orthopedics reevaluated on 11/13
ECHO- Left ventricle is small in size. . Normal left ventricular systolic function. Left ventricular ejection fraction is 60-65% by volumetric assessment. Normal regional wall motion. Normal left ventricular wall thickness. Diastolic
function indeterminate. Structurally normal aortic valve without significant stenosis and trace regurgitation. Trileaflet aortic valve. Aortic sclerosis without stenosis.
CT PE study-new peripheral right lower lobe PE with right heart strain. Worsening of bilateral multifocal pneumonia compared to 11/01/2024. 14 cm hiatal hernia
# Multifocal Pneumonia, likely aspiration pneumonia
Acute Hypoxemic Respiratory Failure secondary to the above
Sepsis secondary to the above
COVID / Flu negative in the ED.
Completed IV AB- continue Doxy
Pureed diet as per speech
Wean oxygen as tolerated
Possible aspiration during vomiting
Added Acapella and vest therapy
Echo noted-normal EF
She remains on 4 L now. Was on 5 to 6 L before
Wean as tolerated
Pt requesting Ensure chocolate as a supplement
WBC 17.4-->14.1-->11.5-->8.4-->6.8
#Right lower lobe PE-Lovenox. Check venous Dopplers. switch to Eliquis
# Vomiting and 2 episodes of diarrhea-resolved
# Urinary retention-retention protocol. Aranda placed 11/11/2024
# Hiatal Hernia / GERD
- Suspected aspiration component given multifocal infiltrates and large hiatal hernia / esophageal air-fluid level noted on CT.
- NG placed for decompression in the ED, since discontinued with resolution nausea and start pureed diet as above (Abd X-ray also noted tube possibly in LLL bronchus vs hiatal hernia)
- IV PPI.
- Speech eval appreciated cleared for pureed diet continue
- Surgery eval appreciated outpt follow up for EGD and eventual repair
# Anemia-PO iron
# Hypokalemia-replaced
# Hypophosphatemia-replace
# Hyponatremia resolved
- Na - 137
- Likely due to ADH release s/p surgery, anesthesia, pain response
- Significantly improved to 130s following IVF since completed.
# s/p L SHARAN 10/29/24
- Hip X-ray appreciated no acute abn's, left hip prosthetic in expected location
- Continue post-op care including ASA, PT
- Orthopedic eval appreciated WBAT LLE w walker, total hip precautions
-Orthopedics evaluated the patient. Continue dressing changes with mild drainage.
# Rheumatoid Arthritis
- Chronic Steroid Dependence
- stress dose steroids Hydrocortisone tapered to 20 mg IV Q12H
- To start prednisone 5mg BID and stop HC tomorrow
# Hypertension BP 141/79
- Home metoprolol resumed with holding parameters
- Amlodipine 5 mg daily resumed with holding parameters SBP<120, Restarted lisinopril and Hold HCTz
# Hypothyroidism
- Stable. Continue T4 supplementation.
# Insomnia
- Low dose Trazodone started, no significant improvement noted however, since discontinued
- Monitor for now, sleep issues is largely due to position restrictions d/t hip precautions and hiatal hernia,
# DVT Prophylaxis: Lovenox
# Code Status: DNR
Discussed with gnd son, Jacob 11/15
Anticipated Discharge: 24 - 48 hours
Subjective/Interval History
-
Date of Service: November 15, 2024
Remains sob
Objective Data
-
Labs:
Laboratory Results
11/15/24
06:30
WBC 6.8
Hgb 9.6 L
Hct 30.6 L
Plt Count 331
Vital Signs:
Vital Signs
Temp Pulse Resp BP Pulse Ox
98.2 F 88 21 141/79 93
11/15/24 15:00 11/15/24 15:00 11/15/24 15:00 11/15/24 15:00 11/15/24 15:00
I&O
11/14/24 11/15/24 11/16/24
06:59 06:59 06:59
Intake Total 780 / 780 600 / 600
Output Total 450 / 450 1100 / 1100
Balance 330 / 330 -500 / -500
Review of Systems
-
History Source: Patient and Coordinated Provider
Constitutional: Denies Fever
EENT: Reports No Symptoms Reported
Respiratory: Reports Trouble Breathing
Cardiac: Reports No Symptoms; Denies Chest Pain
Abdomen/GI: Reports No Symptoms
Physical Exam
-
General: Well Nourished, No Apparent Distress and Appears Chronically Ill
HEENT: Normocephalic, Atraumatic and Moist Mucous Membranes
Respiratory: Clear to Auscultation (on shallow respirations) and Rhonchi (noted on deep respirations)
Cardiac: Regular Rhythm and S1/S2
GI: Soft, Nontender and Nondistended
Musculoskeletal: No Clubbing, No Cyanosis and No Edema
Skin: Warm and Dry
Neuro: Awake, Alert and Oriented
[2024-11-15 19:30] VITALS: BP 133/79
[2024-11-15] MEDS: NORVASC 5 MG PO (20:07)
[2024-11-15] MEDS: CRESTOR 20 MG PO (20:07)
[2024-11-15] MEDS: TOPROL XL 50 MG PO (20:08)
[2024-11-15] MEDS: NEURONTIN 100 MG PO (20:08)
[2024-11-15] MEDS: ROXICODONE 5 MG PO (20:13)
[2024-11-15 23:36] VITALS: BP 119/71
[2024-11-16] VITALS (7 sets, daily range): BP systolic 113–143; BP diastolic 74–84; PULSE 80–104; O2SAT 93
[2024-11-16] MEDS: SYNTHROID 125 MCG PO (06:12)
[2024-11-16] MEDS: PROTONIX 40 MG PO (09:06)
[2024-11-16] MEDS: SENOKOT 17.2 MG PO (09:06)
[2024-11-16] MEDS: ZESTRIL 10 MG PO (09:07)
[2024-11-16] MEDS: ELIQUIS 10 MG PO (09:07)
[2024-11-16] MEDS: COLACE 100 MG PO (09:07)
[2024-11-16] MEDS: CELEBREX 100 MG PO (09:07)
[2024-11-16] MEDS: MUCINEX 600 MG PO (09:07)
[2024-11-16] MEDS: LOTRIMIN 1% CREAM 1 APPLIC TOPICAL (09:08)
[2024-11-16] MEDS: FLORASTOR 250 MG PO (09:16)
[2024-11-16] MEDS: DELTASONE 5 MG PO (09:16)
[2024-11-16] MEDS: ROXICODONE 5 MG PO ×2 (14:00→18:00)
--- NOTE | 2024-11-16 15:10 | CM ---
Pt medically stable for d/c.
Pt needs SNF. Preferred facilities, [facility] and [facility] do not have availability
Pt's grand son, Jacob, agreeable to explore [facility].
Per [facility] admissions, able to accept pt today. Hospitalist agreeable to d/c
Will need ambulance transport. After 5pm transport time requested. Forms on chart
IMM reviewed, copy on chart
[facility]
Report: [phone]

Plan: [facility] via ambulance. After 5pm transport time requested.
--- NOTE | 2024-11-16 15:37 | PN.CDI ---
CDI
- -
CDI:
Physician Documentation Request
Admit Date: 11/01/24 20:39
Dear Doctor Stanislav,
Please review the following and provide your response in the progress notes.
Clinical Indicators:
Pt admitted with sepsis 2/2 aspiration Pneumonia
Documented per 11/14 [facility] note, ' Patient seen for HAPI report for sacral stage 2 pressure injury. Patient s/p L SHARAN 10/29/25. History of HTN, RA. See H+P for complete history. She was admitted from home 11/01/24 after she slid off couch. Admission
diagnosis respiratory insufficiency/pneumonia. She was admitted with L buttocks 'scab'. She now has bilateral sacral/buttocks stage 2 pressure injury.....Updated Dr. Colorado who approved local care,...Sacral/buttocks silicone border foam changed.'
Physician documentation of the type and location of wounds is required for compliant documentation. Based on the above clinical findings and your assessment, please provide the following in your progress note:
1. Location of the ulcer/wound, including laterality.
2. Type (etiology) of ulcer/wound:
- Pressure (decubitus) ulcer
- Non-pressure ulcer
- Other
Use of terms such as suspected, likely, concern for, or probable (associated with a specific diagnosis that is being evaluated, monitored, or treated as if it exists) are acceptable and can be coded in the inpatient setting, when documented at the
time of discharge.
Thank you,
Hoda Mcnair RN
CDI Specialist
[place] [facility]
Please use your independent medical judgment in providing your response.
*Source: National Pressure Ulcer Advisory Panel (NPUAP)
--- NOTE | 2024-11-16 15:42 | PN.CDI ---
CDI
- -
CDI:
Physician Documentation Request
Admit Date: 11/01/24 20:39
Dear Doctor Stanislav
Please review the following and provide your response in the progress notes.
Clinical Indicators:
Height: 5 ft 9 in
Weight:126
BMI:1836 ( 11/13)
If possible, please provide an associated diagnosis related to the abnormal BMI, such as:
BMI < or = to 19
Underweight
Weight Loss
Cachectic
- Other
Use of terms such as suspected, likely, concern for, or probable (associated with a specific diagnosis that is being evaluated, monitored, or treated as if it exists) are acceptable and can be coded in the inpatient setting, when documented at the
time of discharge.
Thank you,
Hoda Mcnair RN
CDI Specialist
[place] [facility]
Please use your independent medical judgment in providing your response.
--- NOTE | 2024-11-16 16:44 | W.PN.HOSP.TC ---
Addendum entered and electronically signed by Jose Colorado MD 11/16/24 18:10:
Acute DVT right peroneal/tibial veins is a valid diagnosis
Original Note:
Today's Communication/Plan
-
dc to [facility]
Assessment / Plan
Assessment / Plan
Patient is a 74F with PMH significant for RA, HTN and recent L SHARAN who presented w cough and SOB.
orthopedics reevaluated on 11/13
ECHO- Left ventricle is small in size. . Normal left ventricular systolic function. Left ventricular ejection fraction is 60-65% by volumetric assessment. Normal regional wall motion. Normal left ventricular wall thickness. Diastolic
function indeterminate. Structurally normal aortic valve without significant stenosis and trace regurgitation. Trileaflet aortic valve. Aortic sclerosis without stenosis.
CT PE study-new peripheral right lower lobe PE with right heart strain. Worsening of bilateral multifocal pneumonia compared to 11/01/2024. 14 cm hiatal hernia
# Multifocal Pneumonia, likely aspiration pneumonia
Acute Hypoxemic Respiratory Failure secondary to the above
Sepsis secondary to the above
COVID / Flu negative in the ED.
Completed IV AB- continue Doxy
Pureed diet as per speech
Wean oxygen as tolerated
Possible aspiration during vomiting
Added Acapella and vest therapy
Echo noted-normal EF
She remains on 4 L now. Was on 5 to 6 L before
Wean as tolerated
Pt requesting Ensure chocolate as a supplement
WBC 17.4-->14.1-->11.5-->8.4-->6.8
#Right lower lobe PE-Lovenox. Check venous Dopplers. switch to Eliquis
# Vomiting and 2 episodes of diarrhea-resolved
# Urinary retention-retention protocol. Aranda placed 11/11/2024
#underweight
# ' Patient seen for HAPI report for sacral stage 2 pressure injury. Patient s/p L SHARAN 10/29/25. History of HTN, RA. She was admitted from home 11/01/24 after she slid off couch. She was admitted with L buttocks 'scab'. She now has bilateral
sacral/buttocks stage 2 pressure injury. .Sacral/buttocks silicone border foam changed.
# Hiatal Hernia / GERD
- Suspected aspiration component given multifocal infiltrates and large hiatal hernia / esophageal air-fluid level noted on CT.
- NG placed for decompression in the ED, since discontinued with resolution nausea and start pureed diet as above (Abd X-ray also noted tube possibly in LLL bronchus vs hiatal hernia)
- IV PPI.
- Speech eval appreciated cleared for pureed diet continue
- Surgery eval appreciated outpt follow up for EGD and eventual repair
# Anemia-PO iron
# Hypokalemia-replaced
# Hypophosphatemia-replace
# Hyponatremia resolved
- Na - 137
- Likely due to ADH release s/p surgery, anesthesia, pain response
- Significantly improved to 130s following IVF since completed.
# s/p L SHARAN 10/29/24
- Hip X-ray appreciated no acute abn's, left hip prosthetic in expected location
- Continue post-op care including ASA, PT
- Orthopedic eval appreciated WBAT LLE w walker, total hip precautions
-Orthopedics evaluated the patient. Continue dressing changes with mild drainage.
# Rheumatoid Arthritis
- Chronic Steroid Dependence
- stress dose steroids Hydrocortisone tapered to 20 mg IV Q12H
- To start prednisone 5mg BID and stop HC tomorrow
# Hypertension BP 141/79
- Home metoprolol resumed with holding parameters
- Amlodipine 5 mg daily resumed with holding parameters SBP<120, Restarted lisinopril and Hold HCTz
# Hypothyroidism
- Stable. Continue T4 supplementation.
# Insomnia
- Low dose Trazodone started, no significant improvement noted however, since discontinued
- Monitor for now, sleep issues is largely due to position restrictions d/t hip precautions and hiatal hernia,
# DVT Prophylaxis: Lovenox
# Code Status: DNR
Discussed with gnd son, Jacob 11/16
More than 30 minutes spent in discharge including
Final examination of the patient
Summarizing hospital stay
Instructions for continuing care to all relevant caregivers
Preparation of discharge records, prescriptions, and referral forms
Total time spent (in minutes): 45
Anticipated Discharge: Today
Subjective/Interval History
-
Date of Service: November 16, 2024
Objective Data
-
Vital Signs:
Vital Signs
Temp Pulse Resp BP Pulse Ox
98.5 F 83 32 138/79 93
11/16/24 11:00 11/16/24 11:00 11/16/24 11:00 11/16/24 11:00 11/16/24 11:00
I&O
11/15/24 11/16/24 11/17/24
06:59 06:59 06:59
Intake Total 600 / 600 600 / 600 600 / 600
Output Total 1100 / 1100 400 / 400 450 / 450
Balance -500 / -500 200 / 200 150 / 150
--- NOTE | 2024-11-16 17:10 | PN.CDI ---
CDI
- -
CDI:
Physician Documentation Request
Admit Date: 11/01/24 20:39
Dear Doctor Stanislav,
Please review the following and provide your response in the progress notes.
Clinical Indicators:
The diagnosis of Acute DVT of the right leg was included in the signed Venous Doppler 11/14.
Additional clinical indicators in the chart include:
Progress notes 11/14-11/16 ,' #Right lower lobe PE-Lovenox. Check venous Dopplers. switch to Eliquis...'
Venous Doppler 11/14 , ' This is occlusive in the peroneal and posterior tibial as well as soleal veins....Acute DVT of the right leg behind the knee and in the calf as described above....'
Please indicate in your progress notes if you are in agreement that the above diagnosis is valid for this patient:
____ - Acute DVT right peroneal/tibial veins is a valid diagnosis (Please include it in your progress notes)
____ - Acute DVT right peroneal/tibial veins is not a valid diagnosis for this patient
____ - Other ( please specify)
Use of terms such as suspected, likely, concern for, or probable are acceptable for a diagnosis that is being evaluated, monitored or treated as if it exists and can be coded in the inpatient setting, when documented at the time of discharge.
Thank you,
Hoda Mcnair RN
CDI Specialist
[place] [employer]
Please use your independent medical judgment in providing your response.
--- NOTE | 2024-11-16 18:11 | W.DS.TRANS ---
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
-
Discharge Instructions:
Discharge Diagnosis/Procedures Aspiration Pneumonia, Pulmonary Embolism
Diet Grind all food
Activity With assistance
Driving Restrictions No driving
Bathing Restrictions None
Blood Work CBC, BMP
Instructions:
Stand-Alone Forms:
Changes to Home Medications: Yes
Discharge Medications:
DC Medications w/original date entered in [employer]
amlodipine 5 mg tablet 5 mg PO HS Blood Pressure 10/23/24
gabapentin 100 mg capsule 100 mg PO HS Pain 10/23/24
levothyroxine 125 mcg tablet 125 mcg PO DAILY Thyroid 10/23/24
metoprolol succinate 50 mg tablet,extended release 24 hr 50 mg PO HS Blood Pressure 10/23/24
omeprazole 20 mg capsule,delayed release 20 mg PO DAILY GERD 10/23/24
rosuvastatin 20 mg tablet (Crestor) 20 mg PO DAILY High Cholesterol 10/23/24
Saccharomyces boulardii 250 mg capsule (Florastor) 250 mg PO BID #1 cap 10/29/24
aspirin 325 mg tablet 325 mg PO DAILY blood clot prevention #1 tab 10/29/24
docusate sodium 100 mg capsule (Colace) 100 mg PO BID stool softner #1 cap 10/29/24
sennosides 8.6 mg tablet (Senokot) 17.2 mg (2 x 8.6 mg) PO BID laxative #2 tabs 10/29/24
acetaminophen 650 mg tablet,extended release (Tylenol 8 Hour) 1,300 mg PO Q12H Pain 11/01/24
celecoxib 100 mg capsule 100 mg PO BID INFLAMMATION 11/01/24
ondansetron 4 mg disintegrating tablet 4 mg PO Q6HPRN PRN n/v 11/01/24
prednisone 10 mg tablet 10 mg PO BID INFLAMMATION 11/01/24
apixaban 5 mg tablet (Eliquis) 10 mg (2 x 5 mg) PO BID #60 tabs 11/16/24
guaifenesin 600 mg tablet, extended release 12 hr 600 mg PO Q12 #60 tabs 11/16/24
lidocaine 4 % topical patch 2 patch topical DAILYPRN PRN Lower Back Pain #30 ea 11/16/24
lisinopril 10 mg tablet 10 mg PO DAILY #0 tabs 11/16/24
oxycodone 5 mg tablet 5 mg PO Q6HPRN PRN 1 tab moderate pain, 2 tabs severe pain #12 tabs 11/16/24
Home Medication Changes
Lisinopril/HCTZ changed to plain Lisinopril
started on Eliquis
Pending Results: No
== END 2024-11-16 19:40 | DRG 871 ==
LOC: 4 WEST ACU 20:39
PROVIDERS: Hospitalist; Internal Medicine; Internal Medicine Critical Care Medicine; Nurse Practitioner Family; Radiology Vascular & Interventional Radiology; ADMITTING PHYSICIAN Hospitalist; ATTENDING PHYSICIAN Internal Medicine; CONSULT PHYSICIAN Internal Medicine Critical Care Medicine; CONSULT PHYSICIAN Surgery; EMERGENCY PHYSICIAN Emergency Medicine; FAMILY PHYSICIAN Internal Medicine; OTHER PHYSICIAN Internal Medicine
PROC: 5A0935A Assistance with Respiratory Ventilation, Less than 24 Consecutive Hours, High Flow/Velocity Cannula (ICD-10-PCS; 2024-11-01)
PROC: 0D9670Z Drainage of Stomach with Drainage Device, Via Natural or Artificial Opening (ICD-10-PCS; 2024-11-03)
PROC: 0T9B70Z Drainage of Bladder with Drainage Device, Via Natural or Artificial Opening (ICD-10-PCS; 2024-11-11)
DX: A41.9 Sepsis, unspecified organism (principal); I26.99 Other pulmonary embolism without acute cor pulmonale; J18.9 Pneumonia, unspecified organism; J69.0 Pneumonitis due to inhalation of food and vomit; E87.1 Hypo-osmolality and hyponatremia; D62 Acute posthemorrhagic anemia; I82.451 Acute embolism and thrombosis of right peroneal vein; I82.441 Acute embolism and thrombosis of right tibial vein; I10 Essential (primary) hypertension; E03.9 Hypothyroidism, unspecified; G25.81 Restless legs syndrome; R06.89 Other abnormalities of breathing; R09.02 Hypoxemia; M06.9 Rheumatoid arthritis, unspecified; K44.9 Diaphragmatic hernia without obstruction or gangrene; E86.1 Hypovolemia; K21.9 Gastro-esophageal reflux disease without esophagitis; E87.6 Hypokalemia; K22.89 Other specified disease of esophagus; R33.9 Retention of urine, unspecified; L89.152 Pressure ulcer of sacral region, stage 2; L89.322 Pressure ulcer of left buttock, stage 2; L89.312 Pressure ulcer of right buttock, stage 2; E83.39 Other disorders of phosphorus metabolism; R63.6 Underweight; G47.00 Insomnia, unspecified; R11.2 Nausea with vomiting, unspecified; R19.7 Diarrhea, unspecified; E78.00 Pure hypercholesterolemia, unspecified; Z66 Do not resuscitate; Z96.642 Presence of left artificial hip joint; Z96.652 Presence of left artificial knee joint; Z79.52 Long term (current) use of systemic steroids; Z79.890 Hormone replacement therapy; Z79.82 Long term (current) use of aspirin; Z79.1 Long term (current) use of non-steroidal anti-inflammatories (NSAID); Z79.891 Long term (current) use of opiate analgesic; Z87.891 Personal history of nicotine dependence; Z88.3 Allergy status to other anti-infective agents; Z88.0 Allergy status to penicillin; Z88.2 Allergy status to sulfonamides; Z88.8 Allergy status to other drugs, medicaments and biological substances; Z91.048 Other nonmedicinal substance allergy status; Z11.52 Encounter for screening for COVID-19; Z82.49 Family history of ischemic heart disease and other diseases of the circulatory system; Z68.20 Body mass index [BMI] 20.0-20.9, adult
CPT/HCPCS: 71045; 71275; 73502; 74018; 74022; 80048; 80053; 82248; 82533; 82607; 82728; 83540; 83550; 83735; 83880; 84100; 84145; 84484; 85025; 85027; 85730; 87040; 87502; 87798; 87811; 92526; 92610; 93005; 93306; 93970; 94640; 94667; 94668; 94669; 96361; 96365; 96375; 97110; 97116; 97163; 97167; 97530; 97535; 99291; Q9967

== ENCOUNTER → 2024-11-19 11:03 | Outpatient (REF) | payer OTHER, MEDICARE, SELFPAY ==
[2024-11-19 11:45] LABS: Hematocrit 33.3 % (37.0-47.0); Hemoglobin 10.1 g/dL (12.0-16.0); Mean Corp Hgb Conc. 30.3 g/dL (33.0-37.0); Mean Corpuscular Hgb 31.1 pg (27.0-31.0); Mean Corpuscular Volume 102.5 fL (81.0-99.0); Mean Platelet Volume 9.9 fL (7.4-10.4); Platelet Count 397 10^3/uL (130-400); Red Blood Cell Count 3.25 10^6/uL (4.20-5.40); Red Cell Dist. Width 14.4 % (11.5-14.5); White Blood Cell Count 9.4 10^3/uL (4.8-10.8)
[2024-11-19 11:52] LABS: Blood Urea Nitrogen 22 mg/dl (7-17); Calcium 8.7 mg/dl (8.4-10.2); Carbon Dioxide 27 mmol/L (22-30); Chloride 102 mmol/L (98-107); Glucose 100 mg/dl (70-99); Potassium 4.8 mmol/L (3.5-5.1); Sodium 136 mmol/L (135-145); eGFR > 60.00
== END ==
LOC: OLABP 11:03
PROVIDERS: ATTENDING PHYSICIAN Family Medicine
DX: J18.9 Pneumonia, unspecified organism (principal); I26.99 Other pulmonary embolism without acute cor pulmonale; D62 Acute posthemorrhagic anemia; E87.6 Hypokalemia; M06.9 Rheumatoid arthritis, unspecified; G25.81 Restless legs syndrome; A41.9 Sepsis, unspecified organism
CPT/HCPCS: 36415; 80048; 85027

== ENCOUNTER → 2024-11-21 15:39 | Outpatient (REF) | payer MEDICARE, SELFPAY ==
[2024-11-21 16:54] LABS: Urine Albumin 2+ (Neg - Trace); Urine Bilirubin Negative (Negative); Urine Character Slightly Cloudy (Clear); Urine Color Red; Urine Glucose Negative (Negative); Urine Ketone Negative (Negative); Urine Leukocyte 2+ (Negative); Urine Nitrite Negative (Negative); Urine Occult Blood 4+ (Negative); Urine Urobilinogen Negative (Neg - 1+)
[2024-11-21 17:17] LABS: Urine Red Blood Cell >100 /HPF (0-2); Urine Squamous Cell 0-2 /LPF (Few); Urine White Cell 50-60 /HPF (0-5)
[2024-11-21 17:18] LABS: Urine Bacteria Moderate (Negative)
== END ==
LOC: OLABP 15:39
PROVIDERS: ATTENDING PHYSICIAN Family Medicine
DX: J18.9 Pneumonia, unspecified organism (principal); I26.99 Other pulmonary embolism without acute cor pulmonale; D62 Acute posthemorrhagic anemia; E87.6 Hypokalemia; M06.9 Rheumatoid arthritis, unspecified; G25.81 Restless legs syndrome; A41.9 Sepsis, unspecified organism
CPT/HCPCS: 81003; 81015; 87077; 87086; 87186

== ENCOUNTER → 2024-12-03 13:54 | Outpatient (REF) | payer MEDICARE, SELFPAY ==
[2024-12-03 15:13] LABS: Blood Urea Nitrogen 40 mg/dl (7-17); Calcium 9.4 mg/dl (8.4-10.2); Carbon Dioxide 25 mmol/L (22-30); Chloride 106 mmol/L (98-107); Glucose 126 mg/dl (70-99); Potassium 5.2 mmol/L (3.5-5.1); Sodium 136 mmol/L (135-145); eGFR 35.89
== END ==
LOC: OLABP 13:54
PROVIDERS: ATTENDING PHYSICIAN Family Medicine
DX: J18.9 Pneumonia, unspecified organism (principal); I26.99 Other pulmonary embolism without acute cor pulmonale; D62 Acute posthemorrhagic anemia; E87.6 Hypokalemia; M06.9 Rheumatoid arthritis, unspecified; G25.81 Restless legs syndrome; A41.9 Sepsis, unspecified organism
CPT/HCPCS: 36415; 80048

== ENCOUNTER → 2024-12-24 10:36 | Outpatient (REF) | payer OTHER, MEDICARE, SELFPAY ==
[2024-12-24 11:23] LABS: % Basophils 0.2 % (0-2); % Eosinophils 0.1 % (0-6); % Immature Granulocytes 0.8 % (0-0.5); % Lymphocytes 6.9 % (20.5-51.1); % Monocytes 6.4 % (1.7-9.3); % Neutrophils 85.6 % (42.2-75.2); Absolute Immature Granulocytes 0.1 10^3/uL (0-0.05); Absolute Lymphocytes 0.7 10^3/uL (1.2-3.4); Absolute Monocytes 0.7 10^3/uL (0.1-0.6); Absolute Neutrophils 9.1 10^3/uL (1.4-6.5); Hematocrit 32.9 % (37.0-47.0); Hemoglobin 10.2 g/dL (12.0-16.0); Mean Corpuscular Hgb 29.2 pg (27.0-31.0); Mean Corpuscular Volume 94.3 fL (81.0-99.0); Mean Platelet Volume 9.3 fL (7.4-10.4); Nucleated Red Blood Cells % 0.2 %; Platelet Count 292 10^3/uL (130-400); Red Blood Cell Count 3.49 10^6/uL (4.20-5.40); Red Cell Dist. Width 15.4 % (11.5-14.5); White Blood Cell Count 10.6 10^3/uL (4.8-10.8)
[2024-12-24 11:42] LABS: Blood Urea Nitrogen 20 mg/dl (7-17); Carbon Dioxide 21 mmol/L (22-30); Chloride 105 mmol/L (98-107); Glucose 105 mg/dl (70-99); Potassium 4.8 mmol/L (3.5-5.1); Sodium 135 mmol/L (135-145); eGFR > 60.00
== END ==
LOC: OLABP 10:36
PROVIDERS: ATTENDING PHYSICIAN Family Medicine
DX: J18.9 Pneumonia, unspecified organism (principal); I26.99 Other pulmonary embolism without acute cor pulmonale; D62 Acute posthemorrhagic anemia; E87.6 Hypokalemia; M06.9 Rheumatoid arthritis, unspecified; G25.81 Restless legs syndrome; A41.9 Sepsis, unspecified organism
CPT/HCPCS: 36415; 80048; 85025